=== PATIENT | female | born 1940 | race Caucasian/White ===

== ENCOUNTER 2016-03-27 15:14 | Outpatient (CLI) | payer MEDICARE, OTHER ==
[2016-01-25 09:32] VITALS: BP 143/56
--- NOTE | 2016-03-27 16:52 | Diagnostic Imaging Report ---
[facility] [address] [facility].[address] [address] Report Submission Date: Mar 27, 2016 4:47:24 PM ROOFING SUBCONTRACTOR Patient Study Name: PATRICK MARTIN Date: Mar 27, 2016 3:47:01 PM ROOFING SUBCONTRACTOR Modality Type: CR Gender: F Description: SPINE : 36 [facility] Physician: JESSIKA COOK Lumbar spine, 5 views. History: Lower back pain for several months. Findings: The vertebral height are normal. There is intervertebral disc space narrowing at several levels most significant at L5/S1. There is facet arthropathy in the lower lumbar spine. There is grade I anterolisthesis of L4 on L5. There is atherosclerosis of the aorta. Impression: 1. Mild multilevel spondylosis in the lower lumbar spine with associated mild grade I anterolisthesis of L4 and L5. 2. Aortic atherosclerosis. Electronically signed on Mar 27, 2016 4:47:24 PM ROOFING SUBCONTRACTOR by: Bernard HORAN
== END 2016-03-27 15:15 ==
LOC: RAD 15:14
PROVIDERS: ATTEND Family Medicine
DX: M54.5 Low back pain (principal)
CPT/HCPCS: 72110

== ENCOUNTER 2016-04-01 12:30 | Outpatient (CLI) | payer MEDICARE, OTHER ==
[2016-01-25 09:32] VITALS: BP 143/56
== END 2016-04-01 12:32 ==
LOC: CARD 12:30
PROVIDERS: ATTEND Internal Medicine Cardiovascular Disease
DX: R07.89 Other chest pain (principal)
CPT/HCPCS: G0463

== ENCOUNTER 2016-05-09 13:29 | Outpatient (CLI) | payer MEDICARE, OTHER ==
[2016-01-25 09:32] VITALS: BP 143/56
--- NOTE | 2016-05-10 01:25 | Diagnostic Imaging Report ---
LAUREN PERERA~ [facility] [address] [facility] [address] [place] [address]. [id number] ~ ~ ~ ~ Report Submission Date: May 09, 2016 4:22:40 PM CDT Patient ~ Study Name: PATRICK MARTIN ~ Date: May 09, 2016 1:46:59 PM CDT ~ Modality Type: CR Gender: F ~ Description: ABDOMEN : 38 ~ Institution: [facility] Physician: LAUREN PERERA ~ ~ ~ ~ AP view of the abdomen Clinical history: Left lower abdominal pain for 3 days No bowel obstruction. No significant fecal retention. No dilated small or large bowel loops. Impression: Normal single AP view of the pelvis ~ Electronically signed on May 09, 2016 4:22:40 PM CDT by: Sincere HORAN
== END 2016-05-09 13:30 ==
LOC: RAD 13:29
PROVIDERS: ATTEND Physician Assistant
DX: R10.32 Left lower quadrant pain (principal)
CPT/HCPCS: 74000

== ENCOUNTER 2016-07-08 10:50 | Outpatient (CLI) | payer MEDICARE, OTHER ==
[2016-01-25 09:32] VITALS: BP 143/56
--- NOTE | 2016-07-08 16:39 | Diagnostic Imaging Report ---
[facility] [address] [facility].[address] [address] Report Submission Date: July 08, 2016 4:27:04 PM CDT Patient Study Name: PATRICK MARTIN Date: July 08, 2016 10:55:44 AM CDT Modality Type: CR Gender: F Description: CHEST : 38 Institution: [facility] Physician: LAUREN PERERA Chest 2 views History: Chest wall pain and shortness of breath Findings: The lungs are hyperinflated. Mild left greater than right basilar atelectasis and/or infiltrate observed. Bilateral costophrenic sulcus may represent pleural scarring or small pleural effusions. Heart size is normal. Mild atherosclerotic calcification is observed. Impression: 1. Mild bibasilar atelectasis or infiltrate of uncertain chronicity. 2. Bibasilar pleural scarring versus small pleural effusions. 3. Chronic obstructive pulmonary disease. Electronically signed on July 08, 2016 4:27:04 PM CDT by: Familia HORAN
== END 2016-07-08 10:52 ==
LOC: RAD 10:50
PROVIDERS: ATTEND Physician Assistant
DX: R07.89 Other chest pain (principal)
CPT/HCPCS: 71020

== ENCOUNTER 2016-09-08 08:53 | Day surgery (SDC) | payer MEDICARE, OTHER ==
[2016-01-25 09:32] VITALS: BP 143/56
[~2016-09-08 08:53] MED LIST: LACTATED RINGERS 1,000 ML IV.SOLN IV ONE; LIDOCAINE HCL/PF 2% 100 MG/5 ML VIAL IJ ONE; PROPOFOL 200 MG/20 ML VIAL IV ONE; SALINE FLUSH 10 ML DISP.SYRIN IVF ONE
--- NOTE | 2016-09-09 10:06 | GI Report ---
REFERRING PHYSICIAN: Dr. Sincere Stanton SEASONING MIXER: aMtthew Ruelas MD PROCEDURE MEDICATION: Propofol as per anesthesia. INDICATIONS: This 76-year-old woman has had adenomatous polyps in the past last looked at 5 years ago. She does have a regular stool. She is on a number of medications for her breathing and blood pressure. She does have central obesity. Her Plavix has been held for 5 days. PROCEDURE PERFORMED: Colonoscopy with polypectomy. PROCEDURE: An Olympus video colonoscope was advanced to the rectum and slowly advanced to the cecum. The appendiceal orifice and ileocecal valve were normal. We advanced about 6 or 7 cm and the terminal ileum looked normal. On slow withdrawal, the main part of the cecum, ascending colon, and transverse colon with redundancy, no obvious intraluminal lesions noted. The descending colon, again, has redundancy. In the sigmoid, no obvious intraluminal lesions noted until to get 20 cm and there the patient has a 2 to 3 mm flat polyp that was cold biopsy removed. Retroflexion of the rectum was normal. Patient tolerated the procedure well. FINDINGS: Sigmoid polyp, cold biopsied removed, otherwise, unremarkable colonoscopy. RECOMMENDATIONS: 1. High-fiber diet. 2. Consider re-looking at her colon pending on what the pathology of the polyp is, if it is adenomatous, one would consider looking again in 5 years. If it is hyperplastic, patient could wait probably 10 years pending on what her health status is at that point. cc: Dr. Sincere HORAN
== END 2016-09-08 08:54 ==
LOC: OPSURG 08:53
PROVIDERS: ATTEND Internal Medicine Gastroenterology
DX: D12.5 Benign neoplasm of sigmoid colon (principal)
CPT/HCPCS: 88305; J2001; J2704; J7120; 45380; S1016

== ENCOUNTER 2016-09-16 08:25 | Emergency (ER) | payer MEDICARE, OTHER ==
--- NOTE | 2016-09-16 09:05 | ED Physician Documentation ---
Dyspnea - HISTORIAN Historian: patient - HPI Stated Complaint: pt thinks she has pneumonia Chief Complaint: Dyspnea Onset: days ago (3 days ago) Duration: continues in ED Initiating Event: denies: upper respiratory illness, out of meds Context: has insterstitial lung disease Severity: denies: moderate Exacerbated By: change in position Associated Symptoms: fever. denies: chills, sweating Further Comments: yes - ROS CONST: no problems - PAST HX Lung Disease: asthma, COPD, other (GERDs) PE Risk Factors: hypertension, other (s/p TIA) Surgeries/Procedures: appendectomy, cholecystectomy, other (T&A, toe fusion, D&C ) Immunizations: UTD Allergies/Adverse Reactions: Allergies Allergy/AdvReac Type Severity Reaction Status Date / Time cefadroxil hydrate Allergy Verified 09/16/16 08:56 [From Duricef] Cephalosporins Allergy Verified 09/16/16 08:56 clindamycin Allergy Verified 09/16/16 08:56 Quinolones Allergy Verified 09/16/16 08:56 Sulfa (Sulfonamide Allergy Verified 09/16/16 08:56 Antibiotics) [Sulfa(Sulfonamide Antibiotics)] levofloxacin [From Levaquin] AdvReac Nausea/Vomi Verified 09/16/16 08:56 ting Cefadroxil Hydrate Allergy Uncoded 09/16/16 08:56 clindamycin Allergy Uncoded 09/16/16 08:56 Sulfa(Sulfonamide Allergy Uncoded 09/16/16 08:56 Antibiotics) PORK AdvReac Intermediate Abdominal Uncoded 09/16/16 08:56 Pain Levofloxacin AdvReac Nausea/Vomi Uncoded 09/16/16 08:56 ting Home Medications: Ambulatory Orders Medication Instructions Recorded Acetaminophen [Tylenol] 650 mg PO Q4H PRN #100 tablet 04/28/14 Mag Hydrox/Al Hydrox/Simeth 30 ml PO Q6 PRN #50 udc 04/28/14 [Mylanta] Amoxicillin/Potassium Clav 1 each PO BID #20 tablet 09/16/16 [Augmentin 875-125 Tablet] Methylprednisolone [Medrol] 4 mg PO DIRECTED #21 tablet 09/16/16 - SOCIAL HX Smoking History: non-smoker Alcohol Use: none Drug Use: none - FAMILY HX Family History: other (CHF) - VITAL SIGNS Vital Signs: Vital Signs Temp Pulse Resp BP Pulse Ox 143/56 01/25/16 10:59 - REVIEWED ASSESSMENTS Nursing Assessment Reviewed: Yes Vitals Reviewed: Yes Dyspnea Physical Exam - EXAM General Appearance: alert, mild distress EENT: eye inspection normal, ENT inspection normal, pharynx normal, no signs of dehydration Neck: nml inspection. No: lymphadenopathy Respiratory: speaks full sentences, respiratory distress (mild), decreased air movement, wheezes, rales, rhonchi (course bilateral) CVS: reg. rate & rhythm, no gallop. No: no murmur (grade 2/6) Abdomen: non-tender, no organomegaly, no distention, no ascites Skin: color nml, no rash, cyanosis Extremities: non-tender, normal range of motion, no evidence of injury Neuro/Psych: oriented x3, CN's nml as tested Discharge Clincal Impression: Chronic obstructive lung disease, Bronchitis Prescriptions: Amoxicillin/Potassium Clav [Augmentin 875-125 Tablet] 1 each PO BID #20 tablet Methylprednisolone [Medrol] 4 mg PO DIRECTED #21 tablet Referrals: Sincere Stanton MD [Primary Care Provider] - 2 Days Additional Instructions: Drink a lot of fluids, take Augmentin and medrol as directed. If any further problems to return to the ED or be seen in clinic. Home Medications: Ambulatory Orders Acetaminophen [Tylenol] 650 mg PO Q4H PRN #100 tablet 04/28/14 Mag Hydrox/Al Hydrox/Simeth [Mylanta] 30 ml PO Q6 PRN #50 udc 04/28/14 Amoxicillin/Potassium Clav [Augmentin 875-125 Tablet] 1 each PO BID #20 tablet 09/16/16 Methylprednisolone [Medrol] 4 mg PO DIRECTED #21 tablet 09/16/16 Condition: Stable Disposition: 01 HOME, SELF-CARE Decision to Admit: NO Date of Decison to Admit: 09/16/16 Decision Time: 10:36
[2016-09-16 09:18] LABS: BASOPHILS % 0.7 (0.0-1.5); EOSINOPHILS % 7.2 % (0.0-6.8); MEAN CORPUSCULAR HEMOGLOBIN 30.8 pg (28.0-34.0); MEAN CORPUSCULAR VOLUME 97.5 fl (80.0-100.0); NEUTROPHILS # 6.8 # k/uL (1.4-7.7)
[2016-09-16] MEDS: methylPREDNISolone SOD SUCC 125 MG/2 ML VIAL IVP ONE (09:26)
[2016-09-16] MEDS: IPRATROPIUM/ALBUTEROL SULFATE 3 ML AMPUL.NEB NEB ONE (09:26)
[2016-09-16 09:32] LABS: eGFR (African) > 60; eGFR (Non-African) > 60
[2016-09-16 10:59] VITALS: BP 144/54
--- NOTE | 2016-09-16 14:27 | Diagnostic Imaging Report ---
JOEY ROSEN [facility] [address] [facility].[address] [address] Report Submission Date: Sep 16, 2016 10:16:15 AM CDT Patient Study Name: PATRICK MARTIN Date: Sep 16, 2016 9:35:56 AM CDT Modality Type: CR Gender: F Description: CHEST : 36 Institution: [facility] Physician: JOEY ROSEN Examination: PA and lateral chest. History: Cough Comparison exam: 08 Jul 2016 Findings: PA lateral chest demonstrate a normal cardiac silhouette. Vascular calcifications involving the aortic arch. Continued prominence of the right hilum. Increased parenchymal haziness of the right hilum. Continued blunting of the left costophrenic margin. Osseous structures are appropriate for age. Impression: Increased right perihilar haziness. Follow as warranted to document resolution. Continued right hilar prominence and left base effusion /thickening. If not performed, consider CT chest the with contrast to further evaluate. Electronically signed on Sep 16, 2016 10:16:15 AM CDT by: Bautista HORAN
== END 2016-09-16 10:56 | disposition home or self-care (01) ==
LOC: ED 08:25
DX: J44.0 Chronic obstructive pulmonary disease with (acute) lower respiratory infection (principal); J20.9 Acute bronchitis, unspecified
CPT/HCPCS: 71020; 80053; 85025; 87040; J2930; 96372; 99283; S1016

== ENCOUNTER 2016-10-03 08:21 | Inpatient (IN) | payer MEDICARE, OTHER ==
[2016-10-03] MEDS ORDERED: 0.9 % SODIUM CHLORIDE 500 ML IV ONE (08:57)
[2016-10-03 09:38] LABS: BASOPHILS % 0.5 (0.0-1.5); EOSINOPHILS % 1.6 % (0.0-6.8); MEAN CORPUSCULAR HEMOGLOBIN 30.9 pg (28.0-34.0); MEAN CORPUSCULAR VOLUME 97.2 fl (80.0-100.0); NEUTROPHILS # 10.5 # k/uL (1.4-7.7)
--- NOTE | 2016-10-03 09:54 | ED Physician Documentation ---
Upper Respiratory Symptoms - HISTORIAN Historian: patient - HPI Stated Complaint: pneumonia Chief Complaint: Cough/ Upper Respiratory Additional Information: Seen on 09/16/16 for cough and dyspnea, treated with 10 days of Augmenting, finished a few days ago, now coughing up yellow sputum again. Onset: days ago (6) Duration: sudden-Onset Context: same sx (as 2 weeks ago). denies: recent foreign travel, insect bite(s ), tick(s), recent chemotherapy, multiple patients Severity: moderate Associated Symptoms: productive cough, shortness of breath. denies: fever, chills, sweating, earache, runny nose, sinus pain, sinus drainage, sore throat, hoarseness, allergy, hay fever, chest pain, bloody cough, hurts to breathe, headache Worsened by Deep Breath: No Further Comments: no - ROS CONST/EYES: denies: weakness, eye redness, eye itching CVS/RESP: shortness of breath, other (yellow sputum) LYMPH: denies: leg swelling, rash, swollen glands, ankle swelling GI/: none NEURO/PSYCH: denies: fainting, dizziness, confusion, anxiety, depression MS/SKIN: denies: joint pain, muscle aches, rash - PAST HX Lung Disease: COPD, other (gerd) PE Risk Factors: hypertension, other (tia) Surgeries/Procedures: appendectomy, cholecystectomy, other (t and a, toe fusion , d and c) Immunizations: referred to PCP Allergies/Adverse Reactions: Allergies Allergy/AdvReac Type Severity Reaction Status Date / Time cefadroxil hydrate Allergy Verified 10/03/16 08:28 [From Duricef] Cephalosporins Allergy Verified 10/03/16 08:28 clindamycin Allergy Verified 10/03/16 08:28 Quinolones Allergy Verified 10/03/16 08:28 Sulfa (Sulfonamide Allergy Verified 10/03/16 08:28 Antibiotics) [Sulfa(Sulfonamide Antibiotics)] levofloxacin [From Levaquin] AdvReac Nausea/Vomi Verified 10/03/16 08:28 ting Cefadroxil Hydrate Allergy Uncoded 10/03/16 08:28 clindamycin Allergy Uncoded 10/03/16 08:28 Sulfa(Sulfonamide Allergy Uncoded 10/03/16 08:28 Antibiotics) PORK AdvReac Intermediate Abdominal Uncoded 10/03/16 08:28 Pain Levofloxacin AdvReac Nausea/Vomi Uncoded 10/03/16 08:28 ting Home Medications: Ambulatory Orders Medication Instructions Recorded Acetaminophen [Tylenol] 650 mg PO Q4H PRN #100 tablet 04/28/14 Mag Hydrox/Al Hydrox/Simeth 30 ml PO Q6 PRN #50 udc 04/28/14 [Mylanta] Amoxicillin/Potassium Clav 1 each PO BID #20 tablet 09/16/16 [Augmentin 875-125 Tablet] Methylprednisolone [Medrol] 4 mg PO DIRECTED #21 tablet 09/16/16 - SOCIAL HX Smoking History: non-smoker Alcohol Use: none Drug Use: none - FAMILY HX Family History: other (chf) - VITAL SIGNS Vital Signs: Vital Signs Temp Pulse Resp BP Pulse Ox 98.8 F 99 H 20 97/54 94 10/03/16 08:23 10/03/16 08:23 10/03/16 08:23 10/03/16 08:23 10/03/16 08:24 - REVIEWED ASSESSMENTS Nursing Assessment Reviewed: Yes Vitals Reviewed: Yes Progress - Results/Orders Results/Orders: cbc, cmp, ua, pt/ptt/inr, bnp, cxr, blood cultures ordered - Progress Progress: pt. stable in er, given merepenem 1 gram ivpb after blood cultures taken Critical Care Note - Critical Care Note Total Time (mins): 0 ED Results Lab/Radiology - Lab Results Lab Results: Lab Results 10/03/16 10/03/16 10/03/16 11:04 09:30 09:30 WBC RBC Hgb Hct MCV MCH MCHC RDW Plt Count Neut % (Auto) Lymph % (Auto) [place] % (Auto) Eos % (Auto) Baso % (Auto) Neut # (Auto) Lymph # (Auto) [place] # (Auto) Eos # (Auto) Baso # (Auto) Reactive Lymphs % Reactive Lymphs # PT 10.0 Seconds Seconds (9.4-11.6) INR 0.95 (0.9-1.2) Sodium Potassium Chloride Carbon Dioxide BUN Creatinine Estimated Creat Clear Est GFR ( Amer) Est GFR (Non-Af Amer) Glucose Calcium Total Bilirubin AST ALT Alkaline Phosphatase NT-Pro-B Natriuret Pep 555.8 pg/mL H pg/mL (15.0-450.0) Total Protein Albumin Urine Color Yellow (YELLOW) Urine Appearance Clear (CLEAR) Urine pH 7.0 (5.0 - 8.0) Ur Specific [place] 1.015 (1.010-1.030) Urine Protein 1+ mg/dL H mg/dL (NEGATIVE) Urine Ketones 3+ mg/dL H mg/dL (NEGATIVE) Urine Occult Blood Negative (NEGATIVE) Urine Nitrite Negative (NEGATIVE) Urine Bilirubin Negative (NEGATIVE) Urine Urobilinogen 0.2 Eu Eu (0.2-1.0) Ur Leukocyte Esterase Trace H (NEGATIVE) Urine Glucose Negative mg/dL mg/dL (NEGATIVE) 10/03/16 10/03/16 09:30 09:30 WBC 12.70 K/ul H K/ul (4.00-12.00) RBC 3.19 M/ul L M/ul (3.90-5.20) Hgb 9.9 g/dL L g/dL (12.0-16.0) Hct 31.0 % L % (34.5-46.5) MCV 97.2 fl fl (80.0-100.0) MCH 30.9 pg pg (28.0-34.0) MCHC 31.8 g/dL g/dL (30.0-36.0) RDW 12.6 % % (11.3-14.3) Plt Count 386 K/mm3 K/mm3 (130-400) Neut % (Auto) 82.7 % H % (39.0-79.0) Lymph % (Auto) 11.4 % L % (16.0-50.0) [place] % (Auto) 3.0 % % (0.0-11.0) Eos % (Auto) 1.6 % % (0.0-6.8) Baso % (Auto) 0.5 (0.0-1.5) Neut # (Auto) 10.5 # k/uL H # k/uL (1.4-7.7) Lymph # (Auto) 1.4 # k/uL # k/uL (0.6-4.0) [place] # (Auto) 0.4 # k/uL # k/uL (0.0-0.9) Eos # (Auto) 0.2 # k/uL # k/uL (0.0-0.6) Baso # (Auto) 0.1 # k/uL # k/uL (0.0-0.5) Reactive Lymphs % 0.8 % % (0.0-5.0) Reactive Lymphs # 0.1 # k/uL # k/uL (0.0-0.8) PT INR Sodium 140 mmol/L mmol/L (136-145) Potassium 3.9 mmol/L mmol/L (3.5-5.0) Chloride 105 mmol/L mmol/L (98-110) Carbon Dioxide 26 mmol/L mmol/L (20-32) BUN 8 mg/dL L mg/dL (10-26) Creatinine 0.6 mg/dL mg/dL (0.4-1.5) Estimated Creat Clear 118 Est GFR ( Amer) > 60 (60 - ) Est GFR (Non-Af Amer) > 60 (60 - ) Glucose 101 mg/dL H mg/dL (70-99) Calcium 9.6 mg/dL mg/dL (8.5-10.5) Total Bilirubin 0.5 mg/dL mg/dL (0.2-1.2) AST 12 U/L U/L (0-41) ALT 12 U/L U/L (0-45) Alkaline Phosphatase 70 U/L U/L (46-116) NT-Pro-B Natriuret Pep Total Protein 6.9 g/dL g/dL (6.0-8.5) Albumin 4.3 g/dL g/dL (3.0-5.5) Urine Color Urine Appearance Urine pH Ur Specific [place] Urine Protein Urine Ketones Urine Occult Blood Urine Nitrite Urine Bilirubin Urine Urobilinogen Ur Leukocyte Esterase Urine Glucose - Radiology Radiology Impressions: cxr reveals left sided infiltrate - Orders Orders: ED Orders Category Date Time Status Place IV Lock 1T Care 10/03/16 08:57 Active CHEST 1 VIEW [RAD] Routine Exams 10/03/16 Taken BLOOD CULTURE Routine Lab 10/03/16 09:30 Received BNP [NT-proBNP] Routine Lab 10/03/16 09:30 Completed CBC/PLATELET/DIFF Routine Lab 10/03/16 09:30 Completed CMP Routine Lab 10/03/16 09:30 Completed PT-INR Routine Lab 10/03/16 09:30 Completed UA MACRO DIP ONLY Routine Lab 10/03/16 11:04 Completed URINE CULTURE Routine Lab 10/03/16 11:48 Received 0.9 % Sodium Chloride [Normal Saline] 500 ml Med 10/03/16 08:57 Discontinued IV NOW 0.9 % Sodium Chloride [Sodium Chloride] 50 ml Med 10/03/16 11:19 Discontinued IV .STK-MED Meropenem Med 10/03/16 11:13 Discontinued 1,000 mg IV .STK-MED ONE Meropenem 1,000 mg Med 10/03/16 11:02 Ordered 0.9 % Sodium Chloride [Sodium Chloride] 50 ml IV 1T Transfer Routine Transfer 10/03/16 Ordered Upper Respiratory Symptoms - EXAM General Appearance: alert, moderate distress EENT: eyes nml inspection, nml ENT inspection, lids & conjunct. nml, PERRL, ear nml Neck: normal inspection, thyroid normal, supple Respiratory: no resp. distress, speaks full sentences, rales (left posterior base). No: wheezes Abdomen: non-tender, no organomegaly, nml bowel sounds, no distention CVS: reg rate & rhythm, heart sounds normal, equal pulses, no murmur Skin: color nml, no rash, warm,dry Extremities: non-tender, normal range of motion, no evidence of injury, no edema Neuro/Psych: oriented x3, neuro intact, mood/affect nml Discharge Clincal Impression: Pneumonia Qualifiers: Pneumonia type: due to unspecified organism Laterality: bilateral Lung location : lower lobe of lung Qualified Code(s): J18.9 - Pneumonia, unspecified organism Home Medications: Ambulatory Orders Acetaminophen [Tylenol] 650 mg PO Q4H PRN #100 tablet 04/28/14 Mag Hydrox/Al Hydrox/Simeth [Mylanta] 30 ml PO Q6 PRN #50 udc 04/28/14 Amoxicillin/Potassium Clav [Augmentin 875-125 Tablet] 1 each PO BID #20 tablet 09/16/16 Methylprednisolone [Medrol] 4 mg PO DIRECTED #21 tablet 09/16/16 Comments: Case discussed with Dr. Romy giang admission Condition: Stable Disposition: ADMITTED INPATIENT Decision to Admit: [id number] Decision Time: 11:30
[2016-10-03 09:58] LABS: eGFR (African) > 60; eGFR (Non-African) > 60
[2016-10-03] MEDS ORDERED: MEROPENEM 1,000 MG in 0.9 % SODIUM CHLORIDE 50 ML IV ONE (11:02)
[2016-10-03] MEDS ORDERED: MEROPENEM 1,000 MG IV.SOLN. IV ONE (11:13)
[2016-10-03] MEDS ORDERED: 0.9 % SODIUM CHLORIDE 50 ML IV ONE (11:19)
[2016-10-03 11:47] LABS: APPEARANCE,URINE CLEAR (CLEAR); COLOR,URINE YELLOW (YELLOW); OCCULT BLOOD,URINE NEGATIVE (NEGATIVE)
[2016-10-03 11:48] LABS: UROBILINOGEN URINE 0.2 Eu (0.2-1.0)
--- NOTE | 2016-10-03 12:12 | History and Physical Report ---
History of Present Illnes - History of Present Illness Reason for Visit: dyspnea History of Present Illness: Patient is a 76-year-old white female who was recently treated for bronchitis last possible early pneumonia. Patient states that she took the antibiotic as prescribed in symptoms did improve. Within approximately five days after patient the antibiotic patient started having some increasing dyspnea shortness of breath. Patient subsequently came to the ED for further evaluation and treatment. Patient was noted to have a left lower lobe infiltrate which was new since a previous x-ray approximately one week ago. Patient was felt to be developing a pneumonia was subsequently admitted to the hospital for further care and evaluation. Patient does have a history of bronchiectasis and COPD. - Past Medical History Cardiac: HTN Pulmonary: Asthma, COPD, Other (chronic bronchiectasis) SENIOR ACCOUNTANT CPA: TIA Gastrointestinal: GERD Heme/Onc: Other (thrombocyotosis, anemia) - Past Surgical History Past Surgical History: Appendectomy, Cholecystectomy, Tonsillectomy, Other (D&C , toe fusion) - Past Family History Mother Family History: (89yo, CHF) Father Family History: (80 yo ,unknown cause) Brother 1 Family History: Other (COPD) - Past Social History Smoke: No Alcohol: None Drugs: None Lives: With Family Domestic Violence: Negative - Health Maintenance Health Maintenance: Cholesterol, Influenza Vaccine, Pneumococcal Vaccine Influenza Vaccine: No Pneumonia Vaccine: Yes Resuscitation Status: Resusciation Status Resuscitation Status Full Code - Unable to Obtain History Unable to Obtain: No Review of Systems - Review of Systems Constitutional: Fever, Weakness. negative: Chills, Sweats Eyes: negative: pain, vision change, conjunctivae inflammation ENT: negative: Ear Pain, Ear Discharge, Nose Pain, Nose Discharge Respiratory: negative: Cough, Dry, Shortness of Breath, Hemoptysis Cardiovascular: negative: Chest Pain, Palpitations Gastrointestinal: Diarrhea. negative: Nausea, Vomiting, Abdominal Pain, Constipation, Melena Genitourinary: Other (some urgency). negative: Dysuria, Frequency, Incontinence Musculoskeletal: Neck Pain, Back Pain Skin: negative: Rash, Lesions Neurological: negative: Weakness, Numbness, Incoordination, Confusion, Seizures - Medications/Allergies Allergies/Adverse Reactions: Allergies Allergy/AdvReac Type Severity Reaction Status Date / Time cefadroxil hydrate Allergy Verified 10/11/16 08:35 [From [facility]] Cephalosporins Allergy Verified 10/11/16 08:35 clindamycin Allergy Verified 10/11/16 08:35 Quinolones Allergy Verified 10/11/16 08:35 Sulfa (Sulfonamide Allergy Verified 10/11/16 08:35 Antibiotics) [Sulfa(Sulfonamide Antibiotics)] levofloxacin [From Levaquin] AdvReac Nausea/Vomi Verified 10/11/16 08:35 ting Cefadroxil Hydrate Allergy Uncoded 10/11/16 08:35 clindamycin Allergy Uncoded 10/11/16 08:35 Sulfa(Sulfonamide Allergy Uncoded 10/11/16 08:35 Antibiotics) PORK AdvReac Intermediate Abdominal Uncoded 10/11/16 08:35 Pain Levofloxacin AdvReac Nausea/Vomi Uncoded 10/11/16 08:35 ting Current Inpatient Medications: Current Inpatient Medications Enoxaparin Sodium (Lovenox) 30 mg SQ QD [facility] Stop: 10/16/16 13:01 Meropenem 1,000 mg/ Sodium (Chloride) 50 mls @ 100 mls/hr IV 1T ONE Stop: 10/03/16 11:31 Sodium Chloride (Normal Saline) 1,000 mls @ 100 mls/hr IV Q10H [facility] Meropenem 1,000 mg/ Sodium (Chloride) 50 mls @ 100 mls/hr IV Q8 [facility] Azithromycin 500 mg/ Sodium (Chloride) 250 mls @ 125 mls/hr IV Q24H [facility] Stop: 10/08/16 12:59 Methylprednisolone Sodium Succinate (Solu-Medrol) 80 mg IVP Q12 [facility] Exam - Exam General: Alert, Oriented to Person, Oriented to Place, Oriented to Time, Cooperative, Mild distress HEENT: Atraumatic, PERRLA, EOMI, Mouth Mucous membr. moist/[place], Nose Mucous membr. moist/[place] Neck: Normal Range of Motion Carotids: WNL Thyroid: WNL Lungs: Speaks full Sentences, Respiratory Distress (mils), Wheezes, Rales, Rhonchi (LLL) Cardiovascular: Regular rate, Normal S1, Normal S2, No murmurs Abdomen: Normal bowel sounds, Soft, No tenderness, No hepatospenomegaly, No masses Integumentary: Normal, [place], Warm, Dry Extremities: No clubbing, No cyanosis, No edema, Normal pulses Neurological: Normal gait, Normal speech, Strength Equal Bilat, Normal tone, Sensation intact, Cranial nerves 3-12 NL, Reflexes 2+ Psych/Mental Status: Mental status NL, Mood NL, Appropriate Affect, Intact Judgment Assessment/Plan - Assessment/Plan (1) Pneumonia Status: Acute Qualifiers: Pneumonia type: due to unspecified organism Laterality: bilateral Lung location: lower lobe of lung Qualified Code(s): J18.9 - Pneumonia, unspecified organism (2) Bronchiectasis Status: Chronic Qualifiers: Bronchiectasis type: with acute lower respiratory infection Qualified Code( s): J47.0 - Bronchiectasis with acute lower respiratory infection (3) COPD exacerbation Status: Chronic VTE Assessment - RISK FACTOR SCORE VTE RISK FACTOR SCORES: AGE OVER 60 YEARS, ACUTE INFECTION OTHER THEN SEPSIS - RISK VTE MODERATE RISK: SCORE OF 2 (RISK PROXIMAL DVT 2-4%) PROPHYAXIS NEEDED
--- NOTE | 2016-10-03 14:45 | Diagnostic Imaging Report ---
[facility] [address] [facility].[address] [address] Report Submission Date: Oct 03, 2016 9:22:54 AM CDT Patient Study Name: PATRICK MARTIN Date: Oct 03, 2016 9:00:12 AM CDT Modality Type: CR Gender: F Description: CHEST : 36 Institution: [facility] Physician DAHLIA VICENTE - ER Chest -one view CLINICAL HISTORY: Cough and congestion. FINDINGS: Examination of the chest single portable AP view 10/03/2016 0900 hr with comparison to examination of 09/16/2016 demonstrates left basilar infiltrate or atelectasis with left effusion blunting the costophrenic angle. Cardiovascular and mediastinal silhouettes are stable. The aorta is atherosclerotic. IMPRESSION: Left basilar infiltrate or atelectasis with left effusion blunting the costophrenic angle. Decreased right perihilar infiltrate. Electronically signed on Oct 03, 2016 9:22:54 AM CDT by: Mika HORAN
[2016-10-03] MEDS: IPRATROPIUM/ALBUTEROL SULFATE 3 ML AMPUL.NEB NEB SCH ×3 (14:46→21:15)
[2016-10-03] MEDS: 0.9 % SODIUM CHLORIDE 1,000 ML IV SCH (15:47)
[2016-10-03] MEDS: MEROPENEM 1,000 MG in 0.9 % SODIUM CHLORIDE 50 ML IV SCH ×2 (15:48→21:09)
[2016-10-03] MEDS: AZITHROMYCIN 500 MG in 0.9 % SODIUM CHLORIDE 250 ML IV SCH (15:48)
[2016-10-03] MEDS: ENOXAPARIN SODIUM 30 MG/0.3 ML DISP.SYRIN SQ SCH (15:49)
[2016-10-03 16:10] VITALS: BMI 75.4
[2016-10-03] MEDS ORDERED: SALINE FLUSH 10 ML DISP.SYRIN IVF ONE (21:00)
[2016-10-03] MEDS: methylPREDNISolone SOD SUCC 40 MG/ML VIAL IVP SCH (21:04)
[2016-10-03] MEDS ORDERED: ONDANSETRON HCL 4 MG TAB.RAPDIS PO PRN (22:24)
[2016-10-03] MEDS ORDERED: ONDANSETRON HCL 4 MG TAB.RAPDIS ONE (22:26)
[2016-10-04] MEDS: IPRATROPIUM/ALBUTEROL SULFATE 3 ML AMPUL.NEB NEB SCH ×6 (00:30→21:23)
[2016-10-04] MEDS: 0.9 % SODIUM CHLORIDE 1,000 ML IV SCH ×2 (02:30→14:53)
[2016-10-04] MEDS: MEROPENEM 1,000 MG in 0.9 % SODIUM CHLORIDE 50 ML IV SCH ×3 (05:16→20:39)
[2016-10-04 07:14] LABS: MEAN CORPUSCULAR HEMOGLOBIN 30.9 pg (28.0-34.0); MEAN CORPUSCULAR VOLUME 99.6 fl (80.0-100.0)
[2016-10-04 07:16] LABS: eGFR (African) > 60; eGFR (Non-African) > 60
[2016-10-04 08:13] LABS: SEGMENTED NEUTROPHILS % 98 % (39-79); TOXIC GRANULATION PRESENT
[2016-10-04] MEDS ORDERED: ACETAMINOPHEN 500 MG TABLET PO PRN (08:24)
[2016-10-04] MEDS ORDERED: FLUTICASONE/SALMETEROL 500-50 INHALER IH ONE (08:58)
[2016-10-04] MEDS: FLUTICASONE/SALMETEROL 500-50 INHALER IH SCH ×2 (09:12→20:39)
[2016-10-04] MEDS: methylPREDNISolone SOD SUCC 40 MG/ML VIAL IVP SCH ×2 (09:12→21:45)
[2016-10-04] MEDS ORDERED: ACETAMINOPHEN 325 MG TABLET PO PRN (09:19)
[2016-10-04] MEDS ORDERED: MAG HYDROX/AL HYDROX/SIMETH 30 ML UDC PO PRN (09:19)
[2016-10-04] MEDS ORDERED: FLUTICASONE/SALMETEROL 500-50 INHALER IH SCH (09:19)
[2016-10-04] MEDS ORDERED: IPRATROPIUM/ALBUTEROL SULFATE 3 ML AMPUL.NEB NEB PRN (09:19)
[2016-10-04] MEDS ORDERED: MEROPENEM 1,000 MG in 0.9 % SODIUM CHLORIDE 50 ML IV SCH (09:19)
[2016-10-04] MEDS ORDERED: FLUTICASONE PROPIONATE 120 SPRAY/16 GR BOTTLE NS ONE (09:28)
[2016-10-04] MEDS ORDERED: amLODIPine BESYLATE 5 MG TABLET ONE (09:29)
[2016-10-04] MEDS ORDERED: PANTOPRAZOLE SODIUM 40 MG TABLET ONE ×2 (09:31→09:35)
[2016-10-04] MEDS ORDERED: FUROSEMIDE 40 MG TABLET PO ONE (09:31)
[2016-10-04] MEDS ORDERED: MONTELUKAST SODIUM 10 MG TABLET PO ONE (09:32)
[2016-10-04] MEDS ORDERED: LISINOPRIL 5 MG TABLET ONE (09:32)
[2016-10-04] MEDS ORDERED: CLOPIDOGREL BISULFATE 75 MG TABLET ONE (09:32)
[2016-10-04] MEDS: FLUTICASONE PROPIONATE 120 SPRAY/16 GR BOTTLE NS SCH (11:12)
[2016-10-04] MEDS: FUROSEMIDE 20 MG TABLET PO SCH (11:14)
[2016-10-04] MEDS: PANTOPRAZOLE SODIUM 40 MG TABLET PO SCH (11:15)
[2016-10-04] MEDS: CLOPIDOGREL BISULFATE 75 MG TABLET PO SCH (11:16)
[2016-10-04] MEDS: amLODIPine BESYLATE 5 MG TABLET PO SCH (11:16)
[2016-10-04] MEDS: LISINOPRIL 5 MG TABLET PO SCH (11:17)
[2016-10-04] MEDS: MONTELUKAST SODIUM 10 MG TABLET PO SCH (11:18)
[2016-10-04 11:57] LABS: MEAN CORPUSCULAR HEMOGLOBIN 30.5 pg (28.0-34.0); MEAN CORPUSCULAR VOLUME 97.1 fl (80.0-100.0)
[2016-10-04 12:11] LABS: eGFR (African) > 60; eGFR (Non-African) > 60
[2016-10-04] MEDS: Prednisolone Sod Phosphat 15 MG/5 ML 15ML BOTTLE PO SCH (12:35)
[2016-10-04] MEDS: AZITHROMYCIN 500 MG in 0.9 % SODIUM CHLORIDE 250 ML IV SCH (12:55)
[2016-10-04] MEDS: ENOXAPARIN SODIUM 30 MG/0.3 ML DISP.SYRIN SQ SCH (18:10)
--- NOTE | 2016-10-04 18:28 | Diagnostic Imaging Report ---
DAHLIA VICENTE~ [facility] [address] [address] ~ ~ ~ ~ Report Submission Date: Oct 04, 2016 10:06:05 AM CDT Patient ~ Study Name: PATRICK MARTIN ~ Date: Oct 04, 2016 9:33:00 AM CDT ~ Modality Type: CR Gender: F ~ Description: CHEST : 38 ~ Institution: [facility] Physician: DAHLIA VICENTE ~ ~ ~ ~ Chest 2 views History: Follow up pneumonia Findings: Bilateral lower lobe, right middle lobe, and lingular infiltrates or atelectasis are observed. A small left pleural effusion is present. The lungs are hyperinflated. Cardiomegaly, pulmonary vascular congestion, and central pulmonary artery enlargement are observed. There has been no change since yesterday. Impression: 1. Chronic obstructive pulmonary disease and probable pulmonary hypertension. 2. Bibasilar infiltrates or edema and small left pleural effusion without change. ~ Electronically signed on Oct 04, 2016 10:06:05 AM CDT by: Familia HORAN
[2016-10-04] MEDS ORDERED: SALINE FLUSH 10 ML DISP.SYRIN IVF ONE (22:05)
[2016-10-05] MEDS ORDERED: 0.9 % SODIUM CHLORIDE 1,000 ML IV ONE (00:28)
[2016-10-05] MEDS: IPRATROPIUM/ALBUTEROL SULFATE 3 ML AMPUL.NEB NEB SCH ×4 (00:37→15:04)
[2016-10-05] MEDS ORDERED: ACETAMINOPHEN 325 MG TABLET ONE (01:00)
[2016-10-05] MEDS ORDERED: FUROSEMIDE 40 MG TABLET PO ONE (03:26)
[2016-10-05] MEDS ORDERED: CLOPIDOGREL BISULFATE 75 MG TABLET ONE (03:27)
[2016-10-05] MEDS ORDERED: amLODIPine BESYLATE 5 MG TABLET ONE ×2 (03:27→08:56)
[2016-10-05] MEDS ORDERED: LISINOPRIL 5 MG TABLET ONE ×2 (03:27→08:56)
[2016-10-05] MEDS ORDERED: MONTELUKAST SODIUM 10 MG TABLET PO ONE (03:27)
[2016-10-05] MEDS: MEROPENEM 1,000 MG in 0.9 % SODIUM CHLORIDE 50 ML IV SCH ×2 (05:52→15:05)
[2016-10-05] MEDS: 0.9 % SODIUM CHLORIDE 1,000 ML IV SCH ×2 (05:53→06:26)
[2016-10-05] MEDS ORDERED: PANTOPRAZOLE SODIUM 40 MG TABLET ONE (05:54)
[2016-10-05] MEDS: PANTOPRAZOLE SODIUM 40 MG TABLET PO SCH (05:55)
[2016-10-05] MEDS: FLUTICASONE/SALMETEROL 500-50 INHALER IH SCH (08:50)
[2016-10-05] MEDS: FLUTICASONE PROPIONATE 120 SPRAY/16 GR BOTTLE NS SCH (08:50)
[2016-10-05] MEDS: FUROSEMIDE 20 MG TABLET PO SCH (08:51)
[2016-10-05] MEDS: CLOPIDOGREL BISULFATE 75 MG TABLET PO SCH (08:52)
[2016-10-05] MEDS: MONTELUKAST SODIUM 10 MG TABLET PO SCH (08:53)
[2016-10-05] MEDS: amLODIPine BESYLATE 5 MG TABLET PO SCH (08:57)
[2016-10-05] MEDS: LISINOPRIL 5 MG TABLET PO SCH (08:57)
[2016-10-05] MEDS: Prednisolone Sod Phosphat 15 MG/5 ML 15ML BOTTLE PO SCH (09:00)
[2016-10-05] MEDS: methylPREDNISolone SOD SUCC 40 MG/ML VIAL IVP SCH (10:31)
[2016-10-05 10:43] VITALS: BP 123/65
--- NOTE | 2016-10-05 12:19 | Inpatient Progress Note ---
Subjective - Required Recertification Statement I anticipate X number of days because-include discharge plan: 1 day - Review of Systems General: Denies: Chills Pulmonary: Dyspnea, Cough Cardiovascular: Chest Pain (mild right) Gastrointestinal: Denies: Nausea, Vomiting, Abdominal Pain Genitourinary: Denies: Dysuria, Frequency Objective - Exam Vitals and I&O: Vital Signs Temp 97.8 F 10/05/16 10:00 Pulse 107 H 10/05/16 10:00 Resp 20 10/05/16 10:00 BP 123/65 10/05/16 10:00 Pulse Ox 96 10/05/16 10:00 Intake & Output 10/04/16 10/05/16 10/05/16 23:59 11:59 23:59 Intake Total 855 1086 Output Total 800 Balance 55 1086 Weight 86.636 kg Intake: IV 726 Left Wrist 600 Right arm 126 Oral 855 360 Output: Urine 800 Other: Voiding Method Toilet Toilet # Voids 5 General: Alert, Oriented to Person, Oriented to Place, Oriented to Time, Cooperative, No acute distress Neck: Supple Lungs: Normal air movement, Speaks full Sentences, Wheezes (mild bialt), Rhonchi (few scattered) Cardiovascular: Normal S1, Normal S2, No murmurs, Tachycardia (mild in the low 100) Abdomen: Normal bowel sounds, Soft, No tenderness Extremities: No clubbing, No cyanosis, No edema Skin: Normal, [employer], Warm, Dry Neurological: Normal gait, Normal speech, Strength Equal Bilat, Normal tone, Sensation intact Psych/Mental Status: Mental status NL, Mood NL, Intact Judgment - Results Results: Laboratory Results WBC 10.00 K/ul (4.00-12.00) 10/04/16 09:19 RBC 3.33 M/ul (3.90-5.20) L 10/04/16 09:19 Hgb 10.2 g/dL (12.0-16.0) L 10/04/16 09:19 Hct 32.3 % (34.5-46.5) L 10/04/16 09:19 MCV 97.1 fl (80.0-100.0) 10/04/16 09:19 MCH 30.5 pg (28.0-34.0) 10/04/16 09:19 MCHC 31.4 g/dL (30.0-36.0) 10/04/16 09:19 RDW 12.3 % (11.3-14.3) 10/04/16 09:19 Plt Count 406 K/mm3 (130-400) H 10/04/16 09:19 Neut % (Auto) 82.7 % (39.0-79.0) H 10/03/16 09:30 Lymph % (Auto) 11.4 % (16.0-50.0) L 10/03/16 09:30 [place] % (Auto) 3.0 % (0.0-11.0) 10/03/16 09:30 Eos % (Auto) 1.6 % (0.0-6.8) 10/03/16 09:30 Baso % (Auto) 0.5 (0.0-1.5) 10/03/16 09:30 Neut # (Auto) 10.5 # k/uL (1.4-7.7) H 10/03/16 09:30 Lymph # (Auto) 1.4 # k/uL (0.6-4.0) 10/03/16 09:30 [place] # (Auto) 0.4 # k/uL (0.0-0.9) 10/03/16 09:30 Eos # (Auto) 0.2 # k/uL (0.0-0.6) 10/03/16 09:30 Baso # (Auto) 0.1 # k/uL (0.0-0.5) 10/03/16 09:30 Seg Neutrophils % 98 % (39-79) H 10/04/16 06:50 Lymphocytes % 2 % (16-50) L 10/04/16 06:50 Reactive Lymphs % 0.8 % (0.0-5.0) 10/03/16 09:30 Reactive Lymphs # 0.1 # k/uL (0.0-0.8) 10/03/16 09:30 Toxic Granulation Present 10/04/16 06:50 Plt Morphology Comment Normal (NORMAL) 10/04/16 06:50 Macrocytosis 1+ (NEGATIVE) H 10/04/16 06:50 RBC Morph Comment Abnormal (NORMAL) H 10/04/16 06:50 PT 10.0 Seconds (9.4-11.6) 10/03/16 09:30 INR 0.95 (0.9-1.2) 10/03/16 09:30 Sodium 137 mmol/L (136-145) 10/04/16 09:19 Potassium 3.7 mmol/L (3.5-5.0) 10/04/16 09:19 Chloride 105 mmol/L (98-110) 10/04/16 09:19 Carbon Dioxide 27 mmol/L (20-32) 10/04/16 09:19 BUN 10 mg/dL (10-26) 10/04/16 09:19 Creatinine 0.5 mg/dL (0.4-1.5) 10/04/16 09:19 Estimated Creat Clear 322 10/04/16 09:19 Est GFR ( Amer) > 60 (60-) 10/04/16 09:19 Est GFR (Non-Af Amer) > 60 (60-) 10/04/16 09:19 Glucose 238 mg/dL (70-99) H 10/04/16 09:19 Calcium 10.3 mg/dL (8.5-10.5) 10/04/16 09:19 Total Bilirubin 0.3 mg/dL (0.2-1.2) 10/04/16 09:19 AST 15 U/L (0-41) 10/04/16 09:19 ALT 13 U/L (0-45) 10/04/16 09:19 Alkaline Phosphatase 73 U/L (46-116) 10/04/16 09:19 NT-Pro-B Natriuret Pep 555.8 pg/mL (15.0-450.0) H 10/03/16 09:30 Total Protein 7.3 g/dL (6.0-8.5) 10/04/16 09:19 Albumin 4.6 g/dL (3.0-5.5) 10/04/16 09:19 Urine Color Yellow (YELLOW) 10/03/16 11:04 Urine Appearance Clear (CLEAR) 10/03/16 11:04 Urine pH 7.0 (5.0 - 8.0) 10/03/16 11:04 Ur Specific [place] 1.015 (1.010-1.030) 10/03/16 11:04 Urine Protein 1+ mg/dL (NEGATIVE) H 10/03/16 11:04 Urine Ketones 3+ mg/dL (NEGATIVE) H 10/03/16 11:04 Urine Occult Blood Negative (NEGATIVE) 10/03/16 11:04 Urine Nitrite Negative (NEGATIVE) 10/03/16 11:04 Urine Bilirubin Negative (NEGATIVE) 10/03/16 11:04 Urine Urobilinogen 0.2 Eu (0.2-1.0) 10/03/16 11:04 Ur Leukocyte Esterase Trace (NEGATIVE) H 10/03/16 11:04 Urine Glucose Negative mg/dL (NEGATIVE) 10/03/16 11:04 Assessment/Plan - Assessment/Plan (1) Pneumonia Status: Acute Assessment: continue with resent care (2) Hyperglycemia Status: Acute Assessment: related to steroid, continue to monitor
--- NOTE | 2016-10-05 12:19 | Discharge Summary ---
Discharge Summary - Discharge Sumary History of Present Illness: Patient is a 76-year-old white female who was recently treated for bronchitis last possible early pneumonia. Patient states that she took the antibiotic as prescribed in symptoms did improve. Within approximately five days after patient the antibiotic patient started having some increasing dyspnea shortness of breath. Patient subsequently came to the ED for further evaluation and treatment. Patient was noted to have a left lower lobe infiltrate which was new since a previous x-ray approximately one week ago. Patient was felt to be developing a pneumonia was subsequently admitted to the hospital for further care and evaluation. Patient does have a history of bronchiectasis and COPD. Condition at Discharge: Stable Home Medications: Ambulatory Orders Medication Instructions Recorded Acetaminophen [Tylenol] 650 mg PO Q4H PRN #100 tablet 04/28/14 Mag Hydrox/Al Hydrox/Simeth 30 ml PO Q6 PRN #50 udc 04/28/14 [Mylanta] Amoxicillin/Potassium Clav 1 each PO BID #14 tablet 10/05/16 [Augmentin 875-125 Tablet] Consultations this Visit: None Procedures this Visit: None Allergies/Adverse Reactions: Allergies Allergy/AdvReac Type Severity Reaction Status Date / Time cefadroxil hydrate Allergy Verified 10/11/16 08:35 [From Duricef] Cephalosporins Allergy Verified 10/11/16 08:35 clindamycin Allergy Verified 10/11/16 08:35 Quinolones Allergy Verified 10/11/16 08:35 Sulfa (Sulfonamide Allergy Verified 10/11/16 08:35 Antibiotics) [Sulfa(Sulfonamide Antibiotics)] levofloxacin [From Levaquin] AdvReac Nausea/Vomi Verified 10/11/16 08:35 ting Cefadroxil Hydrate Allergy Uncoded 10/11/16 08:35 clindamycin Allergy Uncoded 10/11/16 08:35 Sulfa(Sulfonamide Allergy Uncoded 10/11/16 08:35 Antibiotics) PORK AdvReac Intermediate Abdominal Uncoded 10/11/16 08:35 Pain Levofloxacin AdvReac Nausea/Vomi Uncoded 10/11/16 08:35 ting Discharge Summary: Patient was started on azithromycin and Merepenem. Patient was started on IV Solu-Medrol. With the IV steroids patient blood sugars did increase 72 to 200 range. Patient was advised of a low carbohydrate diet. Patient symptoms did improve quite dramatically within 24 hours. Patient initial white count was 12, 700 and normalized within 24 hours. At the time of discharge patient breathing status was much improved. Patient was maintianed on 2 liters per NC. Patient was sent home on PO antibiotic and feels steroids taper. Patient was discharged in stable condition. - Final Diagnosis (1) Pneumonia Problems: improved (2) Hyperglycemia Problems: related to steroids (3) Bronchiectasis Problems: chronic, stable
[2016-10-05] MEDS ORDERED: SALINE FLUSH 10 ML DISP.SYRIN IVF ONE (12:32)
[2016-10-05] MEDS: ENOXAPARIN SODIUM 30 MG/0.3 ML DISP.SYRIN SQ SCH (15:05)
[2016-10-05] MEDS: AZITHROMYCIN 500 MG in 0.9 % SODIUM CHLORIDE 250 ML IV SCH (15:07)
== END 2016-10-05 14:25 | disposition home or self-care (01) | DRG 194 ==
LOC: ED 08:21 → SOUTH 12:00
PROVIDERS: ADMIT Family Medicine; ATTEND Family Medicine
DX: J18.9 Pneumonia, unspecified organism (principal); J44.1 Chronic obstructive pulmonary disease with (acute) exacerbation; J47.1 Bronchiectasis with (acute) exacerbation; R73.9 Hyperglycemia, unspecified
CPT/HCPCS: 36415; 71010; 71020; 80048; 80053; 81002; 83880; 85025; 85610; 87040; 87086; A9270; J0456; J1030; J1650; J2185; J7030; J7050; J7060; 99223; 99233; 99238; 99284; J2920; S1016

== ENCOUNTER 2016-10-11 08:09 | Emergency (ER) | payer MEDICARE, OTHER ==
[2016-10-11 09:08] VITALS: BP 149/67
--- NOTE | 2016-10-11 09:08 | ED Physician Documentation ---
Sore Throat/Dental Pain - HISTORIAN Historian: patient, spouse - HPI Stated Complaint: Sore throat Chief Complaint: Sore Throat Additional Information: released from hosp from pneumonia- just finished z-pack. 0naugmentin-developed sore throat - pos for strept. has 2 more days. pt not sick just sore throat- pneumonia appears gone eats sleeps bowels kidneys ok Onset: days ago (2) Associated Symptoms: sore throat, mild, moderate. denies: fever, chills, unable to swallow - ROS CONST: no problems CVS/RESP: none GI/: denies: problems urinating, nausea, vomiting MS/SKIN/LYMPH: denies: muscle aches, rash NEURO/PSYCH: none - PAST HX Past History: other (copd htn gerd ) Allergies/Adverse Reactions: Allergies Allergy/AdvReac Type Severity Reaction Status Date / Time cefadroxil hydrate Allergy Verified 10/11/16 08:35 [From Duricef] Cephalosporins Allergy Verified 10/11/16 08:35 clindamycin Allergy Verified 10/11/16 08:35 Quinolones Allergy Verified 10/11/16 08:35 Sulfa (Sulfonamide Allergy Verified 10/11/16 08:35 Antibiotics) [Sulfa(Sulfonamide Antibiotics)] levofloxacin [From Levaquin] AdvReac Nausea/Vomi Verified 10/11/16 08:35 ting Cefadroxil Hydrate Allergy Uncoded 10/11/16 08:35 clindamycin Allergy Uncoded 10/11/16 08:35 Sulfa(Sulfonamide Allergy Uncoded 10/11/16 08:35 Antibiotics) PORK AdvReac Intermediate Abdominal Uncoded 10/11/16 08:35 Pain Levofloxacin AdvReac Nausea/Vomi Uncoded 10/11/16 08:35 ting Home Medications: Ambulatory Orders Medication Instructions Recorded Acetaminophen [Tylenol] 650 mg PO Q4H PRN #100 tablet 04/28/14 Mag Hydrox/Al Hydrox/Simeth 30 ml PO Q6 PRN #50 udc 04/28/14 [Mylanta] Amoxicillin/Potassium Clav 1 each PO BID #14 tablet 10/05/16 [Augmentin 875-125 Tablet] - SOCIAL HX Smoking History: non-smoker Alcohol Use: none Drug Use: none - FAMILY HX Family History: No - VITAL SIGNS Vital Signs: Vital Signs Temp Pulse Resp BP Pulse Ox 100.4 F H 94 H 19 158/63 98 10/11/16 08:10 10/11/16 08:10 10/11/16 08:10 10/11/16 08:10 10/11/16 08:10 - REVIEWED ASSESSMENTS Nursing Assessment Reviewed: Yes Vitals Reviewed: Yes ED Results Lab/Radiology - Orders Orders: ED Orders Category Date Time Status Rapid Strep [GRP A STREP SCREEN] Stat Lab 10/11/16 08:15 Ordered Sore throat Physical Exam - EXAM General Appearance: mild distress Head/Neck: head nml inspection, trachea midline, no lymphadenopathy, thyroid nml. No: pain over sinuses, cervical lymphadenopathy Eyes: eyes nml inspection Mouth/Throat: gums nml, voice nml (throat dry slight red). No: pharynx nml ( dry sl red---) Ear/Nose: No: TM erythema Respiratory: No: no resp. distress, breath sounds nml CVS: reg. rate & rhythm, murmur Abdomen: soft, non-tender Extremities: non-tender, nml ROM Skin: warm/dry, normal color. No: cyanosis, diaphoresis, jaundice Neuro/Psych: oriented x3, mood/affect nml Discharge Clincal Impression: strept throat, recent pneumonia Referrals: Sincere Stanton MD [Primary Care Provider] - 2 Days Home Medications: Ambulatory Orders Acetaminophen [Tylenol] 650 mg PO Q4H PRN #100 tablet 04/28/14 Mag Hydrox/Al Hydrox/Simeth [Mylanta] 30 ml PO Q6 PRN #50 udc 04/28/14 Amoxicillin/Potassium Clav [Augmentin 875-125 Tablet] 1 each PO BID #14 tablet 10/05/16 Comments: will dpt start cold theresa vits bal nut hi fluids avoit ext hot cold enviornment plenty rest cont augmentin ret to ed prn Condition: Good Disposition: 01 HOME, SELF-CARE Decision to Admit: NO Decision Time: 09:14
== END 2016-10-11 09:06 | disposition home or self-care (01) ==
LOC: ED 08:09
DX: J02.0 Streptococcal pharyngitis (principal)
CPT/HCPCS: 87880; 99283

== ENCOUNTER 2016-12-09 10:21 | Emergency (ER) | payer MEDICARE, OTHER ==
--- NOTE | 2016-12-09 10:27 | ED Physician Documentation ---
General Adult - HISTORIAN Historian: patient - HPI Stated Complaint: cough and shortness of breath hx COPD Chief Complaint: Cough/ Upper Respiratory Onset: days ago (2) Timing: better Severity: moderate Modifying Factors: movement increases shortness of air Quality: cough with decreased air movement Further Comments: yes (she does see pulm) Last known Well Date: 12/07/16 Last Known Well Time: 09:00 Last known Well Code/Unknown Code: Unknown - ROS CONST: fever, chills. denies: recent illness EYES/ENT: none CVS/RESP: chest pain, shortness of breath, cough GI/: denies: abdominal pain MS/SKIN/LYMPH: none NEURO/PSYCH: denies: headache, fainting, dizziness - PAST HX Past History: COPD, CHF, hypertension, other (reflux ) Surgeries/Procedures: other (left ear, three sinus surgeries, appendix, tonsil, gallbladder, DNC, knee replacment bilateral, big toe fused to foot ) Immunizations: referred to PCP Allergies/Adverse Reactions: Allergies Allergy/AdvReac Type Severity Reaction Status Date / Time cefadroxil hydrate Allergy Verified 12/09/16 10:59 [From Duricef] Cephalosporins Allergy Verified 12/09/16 10:59 clindamycin Allergy Verified 12/09/16 10:59 Quinolones Allergy Verified 12/09/16 10:59 Sulfa (Sulfonamide Allergy Verified 12/09/16 10:59 Antibiotics) [Sulfa(Sulfonamide Antibiotics)] levofloxacin [From Levaquin] AdvReac Nausea/Vomi Verified 12/09/16 10:59 ting Cefadroxil Hydrate Allergy Uncoded 10/11/16 08:35 clindamycin Allergy Uncoded 10/11/16 08:35 Sulfa(Sulfonamide Allergy Uncoded 10/11/16 08:35 Antibiotics) PORK AdvReac Intermediate Abdominal Uncoded 10/11/16 08:35 Pain Levofloxacin AdvReac Nausea/Vomi Uncoded 10/11/16 08:35 ting Home Medications: Ambulatory Orders Medication Instructions Recorded Azithromycin [Zithromax] 250 mg PO QD #4 tablet 12/09/16 Fluticasone/Salmeterol [Advair 1 puff IN DAILY 12/09/16 500-50 Diskus] Hyoscyamine Sulfate [Hyoscyamine 0.125 mg PO DAILY PRN 12/09/16 Sulfate] Methylprednisolone [Medrol] 4 mg PO DIRECTED #21 tablet 12/09/16 Mometasone Furoate [Nasonex] 1 spray NA DAILY 12/09/16 - SOCIAL HX Smoking History: non-smoker Alcohol Use: none Drug Use: none - FAMILY HX Family History: Yes - VITAL SIGNS Vital Signs: Vital Signs Temp Pulse Resp BP Pulse Ox 149/67 10/11/16 09:06 - REVIEWED ASSESSMENTS Nursing Assessment Reviewed: Yes Vitals Reviewed: Yes Progress - Results/Orders Results/Orders: discussed with pt . she is wanting to try to go home. DG - Progress Progress: 12:25 pm no change per pt will order duoneb breathing treatment Waiting on CBC 1333: tolerating infusion well. No further complaints DG 1534: Symptoms are improved DG ED Results Lab/Radiology - Radiology Radiology Impressions: Examination: PA and lateral chest. History: Evaluate lung evla. Comparison exam: 04 October 2016 Findings: PA lateral chest demonstrate a prominent cardiac silhouette. Vascular calcification by the aortic arch. Continued chronic appearing interstitial changes and blunting of the left costophrenic margin. Osseous structures are appropriate for age. Impression: Continued chronic interstitial changes and left base effusion. No appreciable change when compared with the September 2016 examination. Electronically signed on Dec 09, 2016 11:44:04 AM CDT by: Bautista Salas General Adult Physical Exam - PHYSICAL EXAM GENERAL APPEARANCE: no distress EENT: eye inspection normal, ENT inspection normal NECK: normal inspection RESPIRATORY: wheezes, rhonchi CVS: reg rate & rhythm, heart sounds normal, equal pulses, murmur ABDOMEN: soft, normal bowel sounds SKIN: warm/dry, normal color EXTREMITIES: non-tender, normal range of motion, no evidence of injury NEURO: oriented X3, CN's nml as tested, motor nml, sensation nml, mood/affect nml Discharge Clincal Impression: Bronchitis Prescriptions: Azithromycin [Zithromax] 250 mg PO QD #4 tablet Methylprednisolone [Medrol] 4 mg PO DIRECTED #21 tablet Referrals: Sincere Stanton MD [Primary Care Provider] - 2 Days Condition: Stable Disposition: 01 HOME, SELF-CARE Decision to Admit: NO Date of Decison to Admit: 12/09/16 Decision Time: 13:34
[2016-12-09] MEDS ORDERED: BUDESONIDE 0.5MG/2ML AMPUL.NEB NEB ONE (11:21)
[2016-12-09] MEDS: BUDESONIDE 0.5MG/2ML AMPUL.NEB NEB SCH (11:45)
[2016-12-09 11:47] LABS: eGFR (African) > 60; eGFR (Non-African) > 60
--- NOTE | 2016-12-09 11:58 | Diagnostic Imaging Report ---
LAUREN STANTON [facility] [address] [facility] [address] [place], [place]. [address] Report Submission Date: Dec 09, 2016 11:44:04 AM CDT Patient Study Name: PATRICK MARTIN Date: Dec 09, 2016 11:28:17 AM CDT Modality Type: CR Gender: F Description: CHEST : 36 Institution: [facility] Physician: LAUREN STANTON Examination: PA and lateral chest. History: Evaluate lung vela. Comparison exam: 04 October 2016 Findings: PA lateral chest demonstrate a prominent cardiac silhouette. Vascular calcification by the aortic arch. Continued chronic appearing interstitial changes and blunting of the left costophrenic margin. Osseous structures are appropriate for age. Impression: Continued chronic interstitial changes and left base effusion. No appreciable change when compared with the September 2016 examination. Electronically signed on Dec 09, 2016 11:44:04 AM CDT by: Bautista HORAN
[2016-12-09 12:27] LABS: MEAN CORPUSCULAR HEMOGLOBIN 29.7 pg (28.0-34.0); MEAN CORPUSCULAR VOLUME 95.4 fl (80.0-100.0)
[2016-12-09] MEDS: IPRATROPIUM/ALBUTEROL SULFATE 3 ML AMPUL.NEB NEB ONE (12:27)
[2016-12-09] MEDS: methylPREDNISolone SOD SUCC 125 MG/2 ML VIAL IVP ONE (13:00)
[2016-12-09] MEDS: AZITHROMYCIN 500 MG in 0.9 % SODIUM CHLORIDE 250 ML IV ONE (13:15)
[2016-12-09 15:33] VITALS: BP 126/47
== END 2016-12-09 15:36 | disposition home or self-care (01) ==
LOC: ED 10:21
DX: J40 Bronchitis, not specified as acute or chronic (principal)
CPT/HCPCS: 71020; 80053; 83880; 85027; 87040; J0456; J2930; J7050; J7626; 96361; 96374; 96375; 99283; S1016

== ENCOUNTER 2016-12-16 09:00 | Inpatient (IN) | payer MEDICARE, OTHER ==
--- NOTE | 2016-12-16 09:11 | ED Physician Documentation ---
General Adult - HISTORIAN Historian: patient, spouse - HPI Stated Complaint: shortness of breath Chief Complaint: Cough/ Upper Respiratory Onset: other (she reports after last ER visit 12.09.16 she had "a few days" where she felt better and she was "back to breathing bad" ) Timing: still present, worse Severity: moderate Modifying Factors: when she moves around the shortness of air is worse Quality: "bad" Location: Cough, congestion and shortness of breath Further Comments: no Last known Well Date: 12/09/16 Last Known Well Time: 08:00 Last known Well Code/Unknown Code: Unknown - ROS CONST: fever, sweating, recent illness, weakness, chills EYES/ENT: none CVS/RESP: shortness of breath, cough GI/: none MS/SKIN/LYMPH: none NEURO/PSYCH: headache. denies: dizziness, tingling, numbness - PAST HX Past History: other (COPD, reflux, CHF, HTN, ) Surgeries/Procedures: other (left ear, sinus (3x), T&A, cataract, appendix, gallbladder, DNC, BKR ) Allergies/Adverse Reactions: Allergies Allergy/AdvReac Type Severity Reaction Status Date / Time cefadroxil hydrate Allergy Verified 12/16/16 09:56 [From Duricef] Cephalosporins Allergy Verified 12/16/16 09:56 clindamycin Allergy Verified 12/16/16 09:56 Quinolones Allergy Verified 12/16/16 09:56 Sulfa (Sulfonamide Allergy Verified 12/16/16 09:56 Antibiotics) [Sulfa(Sulfonamide Antibiotics)] levofloxacin [From Levaquin] AdvReac Nausea/Vomi Verified 12/16/16 09:56 ting Cefadroxil Hydrate Allergy Uncoded 12/16/16 09:56 clindamycin Allergy Uncoded 12/16/16 09:56 Sulfa(Sulfonamide Allergy Uncoded 12/16/16 09:56 Antibiotics) PORK AdvReac Intermediate Abdominal Uncoded 12/16/16 09:56 Pain Levofloxacin AdvReac Nausea/Vomi Uncoded 12/16/16 09:56 ting Home Medications: Ambulatory Orders Medication Instructions Recorded Azithromycin [Zithromax] 250 mg PO QD #4 tablet 12/09/16 Fluticasone/Salmeterol [Advair 1 puff IN DAILY 12/09/16 500-50 Diskus] Hyoscyamine Sulfate [Hyoscyamine 0.125 mg PO DAILY PRN 12/09/16 Sulfate] Methylprednisolone [Medrol] 4 mg PO DIRECTED #21 tablet 12/09/16 Mometasone Furoate [Nasonex] 1 spray NA DAILY 12/09/16 - SOCIAL HX Smoking History: non-smoker Alcohol Use: none Drug Use: none - FAMILY HX Family History: No - VITAL SIGNS Vital Signs: Vital Signs Temp Pulse Resp BP Pulse Ox 126/47 12/09/16 15:31 - REVIEWED ASSESSMENTS Nursing Assessment Reviewed: Yes Vitals Reviewed: Yes ED Results Lab/Radiology - Radiology Radiology Impressions: Examination: PA and lateral chest. History: Evaluate lung vela. Comparison exam: 09 December 2016 Findings: PA lateral chest demonstrates a prominent cardiac silhouette. Vascular calcifications involving the aortic arch. Continued chronic interstitial changes. Increased parenchymal fullness involving the lung bases. Continued blunting of the left costophrenic margin. Osseous structures are appropriate for age. Impression: Continued chronic parenchymal interstitial changes and left base fusion. Slightly increased parenchymal infiltrates when compared with the prior examination. Electronically signed on Dec 16, 2016 9:46:35 AM CDT by: Bautista Salas General Adult Physical Exam - PHYSICAL EXAM GENERAL APPEARANCE: mild distress EENT: eye inspection normal NECK: normal inspection RESPIRATORY: wheezes, rhonchi, other (mild resp distress ) CVS: reg rate & rhythm, heart sounds normal, other (mild edema in lower legs - non pitting - non tender ) ABDOMEN: soft, no organomegaly, normal bowel sounds SKIN: warm/dry, normal color EXTREMITIES: non-tender NEURO: oriented X3, CN's nml as tested, motor nml, sensation nml Discharge Clincal Impression: Pneumonia Condition: Stable Disposition: ADMITTED INPATIENT Decision to Admit: [id number] Date of Decison to Admit: 12/16/16 Decision Time: 10:56
[2016-12-16 09:35] LABS: BASOPHILS % 0.4 (0.0-1.5); EOSINOPHILS % 4.1 % (0.0-6.8); MEAN CORPUSCULAR HEMOGLOBIN 29.9 pg (28.0-34.0); MEAN CORPUSCULAR VOLUME 94.2 fl (80.0-100.0); MONOCYTES % 3.4 % (0.0-11.0); NEUTROPHILS # 9.3 # k/uL (1.4-7.7)
[2016-12-16] MEDS ORDERED: BUDESONIDE 0.5MG/2ML AMPUL.NEB NEB ONE ×2 (09:38→09:44)
[2016-12-16] MEDS ORDERED: methylPREDNISolone SOD SUCC 125 MG/2 ML VIAL ONE (09:39)
[2016-12-16] MEDS ORDERED: methylPREDNISolone SOD SUCC 125 MG/2 ML VIAL IVP ONE (09:43)
[2016-12-16 09:47] LABS: eGFR (African) > 60; eGFR (Non-African) > 60
[2016-12-16] MEDS ORDERED: LEVOFLOXACIN 500MG/D5W 100ML 500 MG in PREMIX BAG 1 BAG IV ONE (09:51)
[2016-12-16] MEDS ORDERED: BUDESONIDE 0.5MG/2ML AMPUL.NEB NEB SCH (10:00)
[2016-12-16] MEDS ORDERED: LEVOFLOXACIN 500MG/D5W 100ML 100 ML IV ONE (10:07)
[2016-12-16] MEDS ORDERED: IPRATROPIUM/ALBUTEROL SULFATE 3 ML AMPUL.NEB NEB ONE (10:21)
[2016-12-16] MEDS ORDERED: ONDANSETRON HCL/PF 4 MG/ 2ML VIAL IVP PRN (10:51)
--- NOTE | 2016-12-16 11:48 | History and Physical Report ---
History of Present Illnes - History of Present Illness Reason for Visit: dyspnea History of Present Illness: 76-year-old white female who was seen approximately one week ago for increasing shortness of breath dyspnea. Patient has a history of bronchiectasis and COPD. Patient has been using hyper nebulization treatment and her pulmonary medications as prescribed. Patient was started on azithromycin last week. Patient that that she did have some mild transit improvement in her symptoms. Over the last four days ago she is been having increasing shortness of breath dyspnea. Patient does have a productive cough up some yellow phlegm. Patient denies him offices. Patient was reevaluated in the emergency room. With noted be having some increasing infiltrates in her lungs. Due to her increasing shortness of breath increasing pulmonary infiltrates and her chronic pulmonary problem patient was subsequently admitted to the hospital for further care and evaluation. - Past Medical History Cardiac: HTN Pulmonary: Asthma, COPD, Other (chronic bronchiectasis) PUPPY WALKER: TIA Gastrointestinal: GERD Heme/Onc: Other (thrombocyotosis, anemia) - Past Surgical History Past Surgical History: Appendectomy, Cholecystectomy, Tonsillectomy, Other (D&C , toe fusion) - Past Family History Mother Family History: (89yo, CHF) Father Family History: (80 yo ,unknown cause) Brother 1 Family History: Other (COPD) - Past Social History Smoke: No Alcohol: None Drugs: None Lives: With Family Domestic Violence: Negative - Health Maintenance Health Maintenance: Cholesterol, Influenza Vaccine, Pneumococcal Vaccine Pneumonia Vaccine: Yes Resuscitation Status: full code Review of Systems - Review of Systems Constitutional: Weakness. negative: Fever, Chills Eyes: negative: pain, vision change ENT: Nose Discharge (clear). negative: Ear Pain, Ear Discharge, Nose Pain, Nose Congestion, Mouth Pain, Mouth Swelling Respiratory: Cough, Shortness of Breath, SOB with Excertion, Sputum (mild yellow ), Wheezing. negative: Hemoptysis, Pleuritic Pain Cardiovascular: negative: Chest Pain, Palpitations, Orthopnea, Paroxysmal Noc. Dyspnea, Edema, Light Headedness Gastrointestinal: negative: Nausea, Vomiting, Abdominal Pain, Diarrhea, Constipation, Melena, Hematochezia Genitourinary: negative: Dysuria, Frequency, Hematuria Musculoskeletal: Back Pain. negative: Neck Pain, Shoulder Pain Skin: negative: Rash Neurological: negative: Weakness, Numbness, Incoordination, Change in Speech, Confusion - Medications/Allergies Allergies/Adverse Reactions: Allergies Allergy/AdvReac Type Severity Reaction Status Date / Time cefadroxil hydrate Allergy Verified 12/16/16 09:56 [From Duricef] Cephalosporins Allergy Verified 12/16/16 09:56 clindamycin Allergy Verified 12/16/16 09:56 Quinolones Allergy Verified 12/16/16 09:56 Sulfa (Sulfonamide Allergy Verified 12/16/16 09:56 Antibiotics) [Sulfa(Sulfonamide Antibiotics)] levofloxacin [From [facility]] AdvReac Nausea/Vomi Verified 12/16/16 09:56 ting PORK AdvReac Intermediate Abdominal Uncoded 12/16/16 09:56 Pain Current Inpatient Medications: Current Inpatient Medications Albuterol Sulfate (Ventolin) 5 mg NEB Q6 [facility] MIGUEL Amlodipine Besylate (Norvasc) 10 mg PO DAILY [facility] Clopidogrel Bisulfate (Plavix) 75 mg PO DAILY [facility] Furosemide (Lasix) 40 mg PO DAILY LU[facility] MIGUEL Guaifenesin (Mucinex) 600 mg PO BID [facility] Levofloxacin/Dextrose 500 mg/ (PREMIX BAG) 100 mls @ 100 mls/hr IV DAILY [facility] Stop: 12/31/16 08:59 Sodium Chloride (Normal Saline) 1,000 mls @ 125 mls/hr IV Q8H [facility] Lisinopril (Prinivil) 10 mg PO DAILY [facility] Methylprednisolone Sodium Succinate (Solu-Medrol) 60 mg IVP Q12 [facility] Ondansetron HCl (Zofran 4 Mg/2 Ml) 4 mg IVP Q6H PRN PRN Reason: Nausea / Vomiting Pantoprazole Sodium (Protonix) 40 mg PO 0700 [facility] Fluticasone/Salmeterol (Advair 500-50 Diskus) 1 puff IH DAILY [facility] Sodium Chloride (Normal Saline Flush) 3 ml IV BID [facility] Exam - Exam Vital Signs: Vital Signs (72 hours) 12/16/16 10:50 Temperature 100.1 F H Pulse Rate [ 87 Right Pulse ox] Respiratory 18 Rate Blood Pressure 120/69 [Left Arm] O2 Sat by Pulse 100 Oximetry General: Alert, Oriented to Person, Oriented to Place, Oriented to Time, Cooperative, Mild distress HEENT: Atraumatic, PERRLA, EOMI, Mouth Mucous membr. moist/Arjay, Nose Mucous membr. moist/Arjay Neck: Normal Range of Motion. No: Stridor, Rigidity, Lymphadenopathy Carotids: WNL Thyroid: WNL Lungs: Speaks full Sentences, Respiratory Distress (mild), Wheezes, Rales, Rhonchi (R>L) Cardiovascular: Regular rate, Normal S1, Normal S2, No murmurs. No: Gallops, Rubs, Murmur Abdomen: Normal bowel sounds, Soft, No tenderness, No hepatospenomegaly, No masses. No: Distended Integumentary: Normal, [place]jay, Warm, Dry Extremities: No clubbing, No cyanosis, Normal pulses, Other (trace edema) Neurological: Normal gait, Normal speech, Strength Equal Bilat, Normal tone, Sensation intact, Cranial nerves 3-12 NL, Reflexes 2+ Psych/Mental Status: Mental status NL, Mood NL, Appropriate Affect Assessment/Plan - Assessment/Plan (1) Pneumonia Status: Acute Qualifiers: Pneumonia type: due to unspecified organism Laterality: bilateral Lung location: lower lobe of lung Qualified Code(s): J18.9 - Pneumonia, unspecified organism (2) Bronchiectasis Status: Chronic Qualifiers: Bronchiectasis type: with acute lower respiratory infection Qualified Code( s): J47.0 - Bronchiectasis with acute lower respiratory infection (3) Chronic obstructive lung disease Status: Chronic Assessment: continue home meds and monitor (4) Essential hypertension Status: Chronic Assessment: continue home meds and monitor VTE Assessment - RISK FACTOR SCORE VTE RISK FACTOR SCORES: AGE OVER 60 YEARS, ACUTE INFECTION OTHER THEN SEPSIS - RISK VTE MODERATE RISK: SCORE OF 2 (RISK PROXIMAL DVT 2-4%) PROPHYAXIS NEEDED
[2016-12-16] MEDS ORDERED: ALBUTEROL SULFATE 2.5 MG/3 ML AMPUL.NEB NEB SCH (12:00)
[2016-12-16] MEDS ORDERED: ALBUTEROL SULFATE 2.5 MG/3 ML AMPUL.NEB NEB ONE (12:11)
[2016-12-16] MEDS ORDERED: HYOSCYAMINE SULFATE 0.125 MG TAB.SUBL SL PRN (12:13)
[2016-12-16] MEDS: 0.9 % SODIUM CHLORIDE 1,000 ML IV SCH ×2 (12:34→20:54)
[2016-12-16] MEDS: PANTOPRAZOLE SODIUM 40 MG TABLET PO SCH (12:34)
[2016-12-16] MEDS: ALBUTEROL SULFATE 2.5 MG/3 ML AMPUL.NEB NEB SCH ×3 (12:34→20:55)
[2016-12-16 13:46] VITALS: BMI 28.7
--- NOTE | 2016-12-16 15:49 | Diagnostic Imaging Report ---
LAUREN STANTON [facility] [address] [facility] [address] [place], [place]. [address] Report Submission Date: Dec 16, 2016 9:46:35 AM CDT Patient Study Name: PATRICK MARTIN Date: Dec 16, 2016 9:36:57 AM CDT Modality Type: CR Gender: F Description: CHEST : 36 Institution: [facility] Physician: LAUREN STANTON Examination: PA and lateral chest. History: Evaluate lung vela. Comparison exam: 09 December 2016 Findings: PA lateral chest demonstrates a prominent cardiac silhouette. Vascular calcifications involving the aortic arch. Continued chronic interstitial changes. Increased parenchymal fullness involving the lung bases. Continued blunting of the left costophrenic margin. Osseous structures are appropriate for age. Impression: Continued chronic parenchymal interstitial changes and left base fusion. Slightly increased parenchymal infiltrates when compared with the prior examination. Electronically signed on Dec 16, 2016 9:46:35 AM CDT by: Bautista HORAN
[2016-12-16] MEDS: methylPREDNISolone SOD SUCC 40 MG/ML VIAL IVP SCH (19:54)
[2016-12-16] MEDS: SALINE FLUSH 10 ML DISP.SYRIN IV SCH (19:55)
[2016-12-17] MEDS: ALBUTEROL SULFATE 2.5 MG/3 ML AMPUL.NEB NEB SCH ×6 (01:05→20:19)
[2016-12-17] MEDS: PANTOPRAZOLE SODIUM 40 MG TABLET PO SCH (05:49)
[2016-12-17 06:20] LABS: BASOPHILS % 0.3 (0.0-1.5); EOSINOPHILS % 0.5 % (0.0-6.8); MEAN CORPUSCULAR VOLUME 93.2 fl (80.0-100.0); NEUTROPHILS # 7.9 # k/uL (1.4-7.7)
[2016-12-17 06:43] LABS: eGFR (African) > 60; eGFR (Non-African) > 60
[2016-12-17] MEDS: FLUTICASONE/SALMETEROL 500-50 INHALER IH SCH (08:16)
[2016-12-17] MEDS: FUROSEMIDE 40 MG TABLET PO SCH (08:18)
[2016-12-17] MEDS: LISINOPRIL 5 MG TABLET PO SCH (08:19)
[2016-12-17] MEDS: CLOPIDOGREL BISULFATE 75 MG TABLET PO SCH (08:19)
[2016-12-17] MEDS: amLODIPine BESYLATE 5 MG TABLET PO SCH (08:19)
[2016-12-17] MEDS ORDERED: FUROSEMIDE 40 MG TABLET PO SCH (09:00)
[2016-12-17] MEDS: methylPREDNISolone SOD SUCC 40 MG/ML VIAL IVP SCH ×2 (09:06→20:19)
[2016-12-17] MEDS ORDERED: LEVOFLOXACIN 500MG/D5W 100ML 100 ML IV ONE (09:09)
[2016-12-17] MEDS: LEVOFLOXACIN 500MG/D5W 100ML 500 MG in PREMIX BAG 1 BAG IV SCH (09:15)
[2016-12-17] MEDS: SALINE FLUSH 10 ML DISP.SYRIN IV SCH ×2 (09:21→20:19)
[2016-12-17] MEDS: 0.9 % SODIUM CHLORIDE 1,000 ML IV SCH (15:12)
[2016-12-17] MEDS ORDERED: BENZONATATE 100 MG CAPSULE PO PRN (16:31)
[2016-12-17] MEDS ORDERED: ZOLPIDEM TARTRATE 5 MG TABLET PO PRN (16:31)
[2016-12-17] MEDS ORDERED: 0.9 % SODIUM CHLORIDE 250 ML IV ONE (17:22)
[2016-12-17] MEDS ORDERED: AZITHROMYCIN 500 MG VIAL IV ONE (17:22)
[2016-12-17] MEDS: AZITHROMYCIN 500 MG in 0.9 % SODIUM CHLORIDE 250 ML IV SCH (17:39)
[2016-12-18] MEDS: 0.9 % SODIUM CHLORIDE 1,000 ML IV SCH ×3 (00:54→11:11)
[2016-12-18] MEDS: ALBUTEROL SULFATE 2.5 MG/3 ML AMPUL.NEB NEB SCH ×6 (01:10→21:41)
[2016-12-18] MEDS: PANTOPRAZOLE SODIUM 40 MG TABLET PO SCH (06:01)
[2016-12-18] MEDS: FLUTICASONE/SALMETEROL 500-50 INHALER IH SCH (08:36)
[2016-12-18] MEDS: amLODIPine BESYLATE 5 MG TABLET PO SCH (08:37)
[2016-12-18] MEDS: FUROSEMIDE 40 MG TABLET PO SCH (08:37)
[2016-12-18] MEDS: CLOPIDOGREL BISULFATE 75 MG TABLET PO SCH (08:38)
[2016-12-18] MEDS: LISINOPRIL 5 MG TABLET PO SCH (08:38)
[2016-12-18] MEDS ORDERED: LEVOFLOXACIN 500MG/D5W 100ML 100 ML IV ONE (08:45)
--- NOTE | 2016-12-18 09:08 | Inpatient Progress Note ---
Subjective - Required Recertification Statement I anticipate X number of days because-include discharge plan: 1 day - Review of Systems Events since last encounter: Patient seems to be improving, less productive cough, states that she can breath better, still PORTILLO. No fever or chills. BS being treated with sliding scale insulin. Patient did sleep some better last noc, did not use Ambien. Objective - Exam Vitals and I&O: Vital Signs Temp 98.4 F 12/18/16 04:41 Pulse 115 H 12/18/16 04:41 Resp 20 12/18/16 04:41 BP 151/75 12/18/16 04:41 Pulse Ox 96 12/18/16 04:41 Intake & Output 12/17/16 12/17/16 12/18/16 11:59 23:59 11:59 Intake Total 360 1675 1500 Balance 360 1675 1500 Weight 85.275 kg 87.09 kg Intake: IV 775 1500 Right Antecubital 775 1500 Oral 360 900 Other: Voiding Method Toilet Toilet # Voids 3 2 General: Alert, Oriented to Person, Oriented to Place, Oriented to Time Neck: Supple, No JVD Lungs: Normal air movement, Speaks full Sentences, Wheezes, Rhonchi (jimproved over yesterday) Cardiovascular: Regular rate, Normal S1, Normal S2, No murmurs Skin: Normal, [place], Warm, Dry Psych/Mental Status: Mental status NL - Results Results: Laboratory Results WBC 10.10 K/ul (4.00-12.00) 12/17/16 06:10 RBC 3.28 M/ul (3.90-5.20) L 12/17/16 06:10 Hgb 9.8 g/dL (12.0-16.0) L 12/17/16 06:10 Hct 30.5 % (34.5-46.5) L 12/17/16 06:10 MCV 93.2 fl (80.0-100.0) 12/17/16 06:10 MCH 30.0 pg (28.0-34.0) 12/17/16 06:10 MCHC 32.2 g/dL (30.0-36.0) 12/17/16 06:10 RDW 12.7 % (11.3-14.3) 12/17/16 06:10 Plt Count 443 K/mm3 (130-400) H 12/17/16 06:10 Neut % (Auto) 78.5 % (39.0-79.0) 12/17/16 06:10 Lymph % (Auto) 18.2 % (16.0-50.0) 12/17/16 06:10 [place] % (Auto) 2.0 % (0.0-11.0) 12/17/16 06:10 Eos % (Auto) 0.5 % (0.0-6.8) 12/17/16 06:10 Baso % (Auto) 0.3 (0.0-1.5) 12/17/16 06:10 Neut # (Auto) 7.9 # k/uL (1.4-7.7) H 12/17/16 06:10 Lymph # (Auto) 1.8 # k/uL (0.6-4.0) 12/17/16 06:10 [place] # (Auto) 0.2 # k/uL (0.0-0.9) 12/17/16 06:10 Eos # (Auto) 0.0 # k/uL (0.0-0.6) 12/17/16 06:10 Baso # (Auto) 0.0 # k/uL (0.0-0.5) 12/17/16 06:10 Reactive Lymphs % 0.5 % (0.0-5.0) 12/17/16 06:10 Reactive Lymphs # 0.0 # k/uL (0.0-0.8) 12/17/16 06:10 Sodium 133 mmol/L (137-145) L 12/17/16 06:10 Potassium 4.1 mmol/L (3.5-5.1) 12/17/16 06:10 Chloride 106 mmol/L (98-107) 12/17/16 06:10 Carbon Dioxide 21 mmol/L (22-30) L 12/17/16 06:10 BUN 13 mg/dL (7-17) 12/17/16 06:10 Creatinine 0.60 mg/dL (0.52-1.04) 12/17/16 06:10 Estimated Creat Clear 122 12/17/16 06:10 Est GFR ( Amer) > 60 (60-) 12/17/16 06:10 Est GFR (Non-Af Amer) > 60 (60-) 12/17/16 06:10 Glucose 186 mg/dL (74-106) H 12/17/16 06:10 Calcium 9.3 mg/dL (8.4-10.2) 12/17/16 06:10 Total Bilirubin 0.3 mg/dL (0.2-1.3) 12/17/16 06:10 AST 15 U/L (15-46) 12/17/16 06:10 ALT 25 U/L (13-69) 12/17/16 06:10 Alkaline Phosphatase 60 U/L (38-126) 12/17/16 06:10 NT-Pro-B Natriuret Pep 334.5 pg/mL (15.0-450.0) 12/16/16 09:30 Total Protein 6.1 g/dL (6.3-8.2) L 12/17/16 06:10 Albumin 3.2 g/dL (3.5-5.0) L 12/17/16 06:10 Assessment/Plan - Assessment/Plan (1) Pneumonia Status: Acute Qualifiers: Pneumonia type: due to unspecified organism Laterality: bilateral Lung location: lower lobe of lung Qualified Code(s): J18.9 - Pneumonia, unspecified organism Plan: continue with present treatment, hope to discharge in the AM (2) Bronchiectasis Status: Chronic Qualifiers: Bronchiectasis type: with acute lower respiratory infection Qualified Code( s): J47.0 - Bronchiectasis with acute lower respiratory infection Assessment: stable (3) Chronic obstructive lung disease Status: Chronic (4) Essential hypertension Status: Chronic Assessment: stable
--- NOTE | 2016-12-18 09:08 | Inpatient Progress Note ---
Subjective - Required Recertification Statement I anticipate X number of days because-include discharge plan: 2 days - Review of Systems Events since last encounter: Patient states that she is doing some better at this time. Did not sleep well last noc due to waking up and not getting back to sleep and her cough. Cough continues to be productive of some green/yellow phlegm. No blood noted. Is still having some wheezing and PORTILLO. No fever or chills noted. SD have been elevated some. General: Chills Cardiovascular: Denies: Chest Pain, Palpitations Gastrointestinal: Denies: Nausea, Vomiting, Abdominal Pain Objective - Exam Vitals and I&O: Vital Signs Temp 98.4 F 12/18/16 04:41 Pulse 115 H 12/18/16 04:41 Resp 20 12/18/16 04:41 BP 151/75 12/18/16 04:41 Pulse Ox 96 12/18/16 04:41 Intake & Output 12/17/16 12/17/16 12/18/16 11:59 23:59 11:59 Intake Total 360 1675 1500 Balance 360 1675 1500 Weight 85.275 kg 87.09 kg Intake: IV 775 1500 Right Antecubital 775 1500 Oral 360 900 Other: Voiding Method Toilet Toilet # Voids 3 2 General: Alert, Oriented to Person, Oriented to Place, Oriented to Time, Cooperative Neck: Supple, No JVD Lungs: Normal air movement, Speaks full Sentences, Respiratory Distress (mild), Wheezes (mild expiratory), Rales (none), Rhonchi (course bilateral) Cardiovascular: Regular rate, Normal S1, Normal S2, No murmurs Abdomen: Normal bowel sounds, Soft, No tenderness Extremities: No clubbing, No edema Skin: Normal, [place], Warm Neurological: Normal gait, Normal speech, Strength Equal Bilat - Results Results: Laboratory Results WBC 10.10 K/ul (4.00-12.00) 12/17/16 06:10 RBC 3.28 M/ul (3.90-5.20) L 12/17/16 06:10 Hgb 9.8 g/dL (12.0-16.0) L 12/17/16 06:10 Hct 30.5 % (34.5-46.5) L 12/17/16 06:10 MCV 93.2 fl (80.0-100.0) 12/17/16 06:10 MCH 30.0 pg (28.0-34.0) 12/17/16 06:10 MCHC 32.2 g/dL (30.0-36.0) 12/17/16 06:10 RDW 12.7 % (11.3-14.3) 12/17/16 06:10 Plt Count 443 K/mm3 (130-400) H 12/17/16 06:10 Neut % (Auto) 78.5 % (39.0-79.0) 12/17/16 06:10 Lymph % (Auto) 18.2 % (16.0-50.0) 12/17/16 06:10 [place] % (Auto) 2.0 % (0.0-11.0) 12/17/16 06:10 Eos % (Auto) 0.5 % (0.0-6.8) 12/17/16 06:10 Baso % (Auto) 0.3 (0.0-1.5) 12/17/16 06:10 Neut # (Auto) 7.9 # k/uL (1.4-7.7) H 12/17/16 06:10 Lymph # (Auto) 1.8 # k/uL (0.6-4.0) 12/17/16 06:10 [place] # (Auto) 0.2 # k/uL (0.0-0.9) 12/17/16 06:10 Eos # (Auto) 0.0 # k/uL (0.0-0.6) 12/17/16 06:10 Baso # (Auto) 0.0 # k/uL (0.0-0.5) 12/17/16 06:10 Reactive Lymphs % 0.5 % (0.0-5.0) 12/17/16 06:10 Reactive Lymphs # 0.0 # k/uL (0.0-0.8) 12/17/16 06:10 Sodium 133 mmol/L (137-145) L 12/17/16 06:10 Potassium 4.1 mmol/L (3.5-5.1) 12/17/16 06:10 Chloride 106 mmol/L (98-107) 12/17/16 06:10 Carbon Dioxide 21 mmol/L (22-30) L 12/17/16 06:10 BUN 13 mg/dL (7-17) 12/17/16 06:10 Creatinine 0.60 mg/dL (0.52-1.04) 12/17/16 06:10 Estimated Creat Clear 122 12/17/16 06:10 Est GFR ( Amer) > 60 (60-) 12/17/16 06:10 Est GFR (Non-Af Amer) > 60 (60-) 12/17/16 06:10 Glucose 186 mg/dL (74-106) H 12/17/16 06:10 Calcium 9.3 mg/dL (8.4-10.2) 12/17/16 06:10 Total Bilirubin 0.3 mg/dL (0.2-1.3) 12/17/16 06:10 AST 15 U/L (15-46) 12/17/16 06:10 ALT 25 U/L (13-69) 12/17/16 06:10 Alkaline Phosphatase 60 U/L (38-126) 12/17/16 06:10 NT-Pro-B Natriuret Pep 334.5 pg/mL (15.0-450.0) 12/16/16 09:30 Total Protein 6.1 g/dL (6.3-8.2) L 12/17/16 06:10 Albumin 3.2 g/dL (3.5-5.0) L 12/17/16 06:10 Assessment/Plan - Assessment/Plan (1) Pneumonia Status: Acute Qualifiers: Pneumonia type: due to unspecified organism Laterality: bilateral Lung location: lower lobe of lung Qualified Code(s): J18.9 - Pneumonia, unspecified organism Plan: continue with IV antibiotics (2) Bronchiectasis Status: Chronic Qualifiers: Bronchiectasis type: with acute lower respiratory infection Qualified Code( s): J47.0 - Bronchiectasis with acute lower respiratory infection Assessment: continue with present treatment (3) Chronic obstructive lung disease Status: Chronic (4) Essential hypertension Status: Chronic Assessment: stable on home meds (5) Insomnia Status: Acute Assessment: I will give something to help with cough, will start ambien PRN
[2016-12-18] MEDS: methylPREDNISolone SOD SUCC 40 MG/ML VIAL IVP SCH ×2 (09:26→20:45)
[2016-12-18] MEDS: SALINE FLUSH 10 ML DISP.SYRIN IV SCH ×2 (09:27→20:08)
[2016-12-18] MEDS: LEVOFLOXACIN 500MG/D5W 100ML 500 MG in PREMIX BAG 1 BAG IV SCH (09:42)
[2016-12-18] MEDS ORDERED: AZITHROMYCIN 500 MG VIAL IV ONE (17:46)
[2016-12-18] MEDS ORDERED: 0.9 % SODIUM CHLORIDE 250 ML IV ONE (17:49)
[2016-12-18] MEDS: AZITHROMYCIN 500 MG in 0.9 % SODIUM CHLORIDE 250 ML IV SCH (18:15)
[2016-12-19] MEDS: ALBUTEROL SULFATE 2.5 MG/3 ML AMPUL.NEB NEB SCH ×2 (01:39→10:30)
[2016-12-19] MEDS: PANTOPRAZOLE SODIUM 40 MG TABLET PO SCH (06:57)
[2016-12-19] MEDS: FUROSEMIDE 40 MG TABLET PO SCH (09:10)
[2016-12-19] MEDS: FLUTICASONE/SALMETEROL 500-50 INHALER IH SCH (09:10)
[2016-12-19] MEDS: SALINE FLUSH 10 ML DISP.SYRIN IV SCH (09:11)
[2016-12-19] MEDS: CLOPIDOGREL BISULFATE 75 MG TABLET PO SCH (09:12)
[2016-12-19] MEDS: amLODIPine BESYLATE 5 MG TABLET PO SCH (09:12)
[2016-12-19] MEDS: LISINOPRIL 5 MG TABLET PO SCH (09:13)
[2016-12-19] MEDS: LEVOFLOXACIN 500MG/D5W 100ML 500 MG in PREMIX BAG 1 BAG IV SCH (09:19)
--- NOTE | 2016-12-19 09:23 | Discharge Summary ---
Discharge Summary - Discharge Sumary History of Present Illness: 76-year-old white female who was seen approximately one week prior to admission for increasing shortness of breath dyspnea. Patient has a history of bronchiectasis and COPD. Patient has been using nebulization treatments and her pulmonary medications as prescribed. Patient was started on azithromycin last week. Patient that that she did have some mild transit improvement in her symptoms. Over the last four days prior to admission she has been having increasing shortness of breath dyspnea. Patient does have a productive cough up some yellow phlegm. Patient denies him hemophysis. Patient was reevaluated in the emergency room. With noted be having some increasing infiltrates in her lungs. Due to her increasing shortness of breath increasing pulmonary infiltrates and her chronic pulmonary problem patient was subsequently admitted to the hospital for further care and evaluation. Condition at Discharge: Stable Home Medications: Ambulatory Orders Medication Instructions Recorded Fluticasone/Salmeterol [Advair 1 puff IN DAILY 12/09/16 500-50 Diskus] Hyoscyamine Sulfate 0.125 mg PO Q6 PRN 12/09/16 Mometasone Furoate [Nasonex] 1 spray NA DAILY 12/09/16 Azithromycin [Zithromax] 250 mg PO QD #4 tablet 12/19/16 Ciprofloxacin HCl [Cipro] 500 mg PO BID #14 tablet 12/19/16 Methylprednisolone [Medrol] 4 mg PO DIRECTED #21 tablet 12/19/16 Ondansetron HCl Rapdis [Zofran Odt] 4 mg PO Q8 PRN #10 tab 12/19/16 Consultations this Visit: None Procedures this Visit: None Allergies/Adverse Reactions: Allergies Allergy/AdvReac Type Severity Reaction Status Date / Time cefadroxil hydrate Allergy Verified 12/16/16 09:56 [From Duricef] Cephalosporins Allergy Verified 12/16/16 09:56 clindamycin Allergy Verified 12/16/16 09:56 Quinolones Allergy Verified 12/16/16 09:56 Sulfa (Sulfonamide Allergy Verified 12/16/16 09:56 Antibiotics) [Sulfa(Sulfonamide Antibiotics)] levofloxacin [From Levaquin] AdvReac Nausea/Vomi Verified 12/16/16 09:56 ting PORK AdvReac Intermediate Abdominal Uncoded 12/16/16 09:56 Pain Discharge Summary: Patient was started on IV antibiotics of azithromycin and Levaquin. Patient was started on IV steroid therapy. Patient was continued on high flow nebulization treatment with doing zack. Over the next 24 to 48 hours patient breathing status did improve. Cough became less productive and of clearer plan. Patient was able to ambulate with less dyspnea. Patient is not have any chest pain. Patient did have some hyperglycemia related to the steroid therapy. Patient was started on a sliding scale insulin dose for this. Patient's hypertension remains stable on her home medications. At the time of discharge patient was in stable condition it was felt that she could be managed on an outpatient basis and was discharged in stable condition. - Final Diagnosis (1) Pneumonia Problems: imporved (2) Bronchiectasis Problems: stable (3) Chronic obstructive lung disease Problems: stable (4) Essential hypertension Problems: stable (5) Hyperglycemia Problems: stable, due to steroids
[2016-12-19] MEDS: methylPREDNISolone SOD SUCC 40 MG/ML VIAL IVP SCH (09:30)
[2016-12-19 10:44] VITALS: BP 138/66
[2016-12-19] MEDS ORDERED: LEVOFLOXACIN 500MG/D5W 100ML 100 ML IV ONE ×2 (11:17→11:28)
--- NOTE | 2016-12-19 11:36 | Diagnostic Imaging Report ---
JOEY ROSEN [facility] [address] [facility].[address] [address] Report Submission Date: Dec 19, 2016 7:05:30 AM CDT Patient Study Name: PATRICK MARTIN Date: Dec 19, 2016 6:48:01 AM CDT Modality Type: CR Gender: F Description: CHEST : 36 Institution: [facility] Physician: JOEY ROSEN HISTORY: 76-year-old female with cough, pneumonia, follow up. COMPARISON: Comparison is made with chest x-rays dated 12/16/2016, 12/09/2016, and 10/04/2016. TECHNIQUE: 2 views of the chest were performed. FINDINGS: There are stable bibasilar opacities, left greater than right. This appearance has been stable since chest x-ray dated 10/04/2016. No pneumothorax , new infiltrates, or pulmonary edema. The heart is mildly enlarged. The aortic arch is calcific. IMPRESSION: 1. Stable bibasilar opacities, left greater than right. As these are stable since chest x-ray dated 10/04/2016, this is suggestive of scarring rather than pneumonic infiltrates or effusions. 2. Cardiomegaly and atherosclerotic vascular disease. Electronically signed on Dec 19, 2016 7:05:30 AM CDT by: Krish HORAN
== END 2016-12-19 12:30 | disposition home or self-care (01) | DRG 195 ==
LOC: ED 09:00 → SOUTH 10:37
PROVIDERS: ADMIT Family Medicine; ATTEND Family Medicine
DX: J18.9 Pneumonia, unspecified organism (principal); J47.9 Bronchiectasis, uncomplicated; J44.9 Chronic obstructive pulmonary disease, unspecified; I10 Essential (primary) hypertension; R73.9 Hyperglycemia, unspecified
CPT/HCPCS: 36415; 71020; 80053; 83880; 85025; 87040; 94640; 94760; J0456; J1030; J1956; J2930; J7030; J7050; J7626; 99222; 99232; 99238; 99283; 99284; J2920; S1016

== ENCOUNTER 2016-12-26 11:03 | Outpatient (CLI) | payer MEDICARE, OTHER ==
--- NOTE | 2017-01-01 10:09 | CONSULTATION REPORT ---
PRIMARY CARE PHYSICIAN: Dr. Sincere Stanton CONSULTING PHYSICIAN: Meagan Whittington MD REASON FOR CONSULT: "I am having trouble breathing. I have a long pulmonary history and I have been taken care of at the [facility] and would like to transfer my care here." PROBLEM LIST: 1. Chronic obstructive pulmonary disease (COPD): Oxygen of 2 liters at night and p.r.n. during the day. 2. Bronchiectasis. 3. Hypertension. 4. Obstructive sleep apnea diagnosed in 2003: CPAP prescribed but the patient does not use it. 5. Cerebrovascular accident (CVA). 6. Transient ischemic attack (TIA) in 2011. 7. Chronic sinusitis. 8. Sinus surgeries x3. 9. Bilateral total knee replacements. 10. Status post cholecystectomy. 11. Status post appendectomy. HISTORY OF PRESENT ILLNESS: This is a 76-year-old female who is accompanied to the Pulmonary Clinic with her . Approximately 1 week to 10 days ago, the patient presented to the emergency department at [facility] complaining of shortness of breath and productive sputum. Patient was treated with antibiotics and a prednisone taper and sent home. Approximately 1 week prior to the ED visit, the patient was hospitalized at [facility] for pneumonia and bronchiectasis. At that time, she was treated with levofloxacin, azithromycin , and prednisone. At home recently, she has completed her prednisone taper and she still has a few days left of her ciprofloxacin and azithromycin. She does not feel that she is back at baseline. She is still complaining of shortness of breath and dyspnea on exertion. She does get short of breath walking around her house. She does check her oxygen saturations and states that they are always greater than 90%. She does have home oxygen for a diagnosis of COPD. It is set at 2 liters nasal canula per minute and she uses it all night and then as needed during the day. Patient does complain of esophageal reflux disease and complains of postnasal drip. There has been no hemoptysis. There is no chest pain. No PND. No fever , chills, or sweats. She does notice mild edema. She has gained weight and has a good appetite. She states she always has a cough and usually productive of yellowish sputum. She claims she has a low energy level and that she does have a history of asthma, previous pneumonias, but no past history of DVTs. Patient was diagnosed with asthma during her later childhood and has had a long history of being on prednisone. She claims that she was on prednisone daily for 17 years and then subsequently was able to be weaned off. Now, she only takes prednisone when she is having a COPD/asthma exacerbation. REVIEW OF SYSTEMS: Please see HPI for pertinent review of systems and please refer to the [facility] intake form also. MEDICATIONS: 1. Plavix 75 mg daily. 2. Ranitidine 150 mg b.i.d. 3. Amlodipine 10 mg daily. 4. Furosemide 60 mg daily. 5. Hyoscyamine 125 mg daily. 6. Esomeprazole 40 mg b.i.d. 7. Mucinex 600 mg b.i.d. 8. Lisinopril 10 mg daily. 9. Advair Diskus 500/50: Not sure if patient uses this. 10. Mometasone Nasal [place]. 11. Albuterol nebulizer t.i.d. to q.i.d. 12. Multiple vitamins and health extracts. Please see electronic medical record. ALLERGIES: 1. Duricef. 2. Clindamycin. 3. Sulfa. SOCIAL HISTORY: Patient lives with her and is a life-long nonsmoker. FAMILY HISTORY: Brother with lung disease: Type unknown. PHYSICAL EXAMINATION: Vital Signs: Height: 5 feet 2 inches. Weight: 189 pounds. BP: 138/54, P: 99, R: 20, T: 97.4. Room air oxygen saturation is 96%. General: This is a well-developed obese Cushingoid-appearing female speaking in full sentences. HEENT: Pupils are equal and reactive. Oropharynx is clear. No thrush. No erythema. Neck: Supple. No lymphadenopathy. Trachea is midline. Lungs: Symmetric expansion. Diffuse crackles bilaterally throughout with occasional bilateral wheezing. Cardiac: Rate and rhythm are regular. No rubs or gallops. A left sternal border murmur heard loudest while sitting up. Abdomen: Obese, soft, and nontender. Positive bowel sounds. Extremities: No cyanosis. No clubbing. There is 1+ to 2+ edema. Neurologic: Awake, alert, and oriented x3. Normal gait for her age. Grossly nonfocal. IMAGING: All imaging independently reviewed by me. Chest x-ray on 12-19-16: Cephalization, peribronchial cuffing, cardiomegaly, right-sided atelectasis, blunting of left CPA, and small cysts in lower lobes ( noticed mainly on lateral). ASSESSMENT AND PLAN: PROBLEM #1: Asthma/Chronic obstructive pulmonary disease (COPD). Patient has a long history of breathing difficulties and requiring prednisone for an extremely lengthy duration. Now takes prednisone only for exacerbations ; however, currently, she does not feel like she is at baseline despite finishing a prednisone taper and almost completely her most recent round of antibiotics. PLAN: 1. Obtain all pulmonary outpatient records from the [facility]. 2. Obtain all inpatient records from [facility]. 3. Obtain all PFTs from [facility]. 4. Obtain PFT results from [facility]. 5. Continue nebulizer. 6. Need to assess her use of Advair or other inhalers on the next visit. 7. Continue to use oxygen at night and p.r.n. during the day. PROBLEM #2: Bronchiectasis. Her history is certainly compatible with bronchiectasis with the chronic coughing up of sputum, usually yellow in color. Her lateral chest x-ray is compatible with possible bronchiectasis. PLAN: 1. Obtain all pulmonary outpatient records from the [facility]. 2. Obtain all inpatient records from [facility]. 3. Obtain all chest CT scans on CD from the [facility]. 4. Obtain chest CT scan PE protocol with high resolution cuts to assess for the possibility of chronic pulmonary embolism and bronchiectasis. PROBLEM #3: Obstructive sleep apnea. Per patient's history, she definitely has GASTON, however, did not like the CPAP machine and did not use it and does not have a CPAP machine at home now. PLAN: 1. Obtain polysomnography (PSG) results from [facility] done approximately in 2003. 2. Will need a repeat sleep study in the near future. 3. Will need to obtain previous echo results. PROBLEM #4: Pulmonary preventative disease. Patient has had a flu shot for this year. PLAN: All issues explained to the patient and her . Return to clinic in 1 month. cc: Dr. Sincere HORAN
== END 2016-12-26 11:04 ==
LOC: PULMONARY 11:03
PROVIDERS: ATTEND Internal Medicine Pulmonary Disease
DX: J44.9 Chronic obstructive pulmonary disease, unspecified (principal); J47.9 Bronchiectasis, uncomplicated; G47.30 Sleep apnea, unspecified
CPT/HCPCS: 99214; G0463

== ENCOUNTER 2016-12-29 12:57 | Outpatient (CLI) | payer MEDICARE, OTHER ==
--- NOTE | 2016-12-29 15:02 | Diagnostic Imaging Report ---
HAMILTON PANDEY [facility] [address] [facility] [address] [place], [place]. [address] Report Submission Date: Dec 29, 2016 2:19:54 PM HEAD OF ICT Patient Study Name: PATRICK MARTIN Date: Dec 29, 2016 1:25:21 PM HEAD OF ICT Modality Type: CT\SR Gender: F Description: CT CHEST W & W/O CONTR : 36 Institution: [facility] Physician: HAMILTON PANDEY Examination: CT chest History: Persistent pneumonia Comparison exams: Plain film chest dated 19 December 2016 Technique: CT chest without and with contrast protocol. High resolution. Findings: High-resolution imaging demonstrates significant bronchiectatic changes at the bases bilaterally. Bronchial wall thickening and inflammation. Few of the enlarged bronchi demonstrate air fluid levels. Large and basilar bulla formation. Mild posterior pleural thickening. No effusion. Apical lung vela without evidence for consolidative process, spiculated lesion or suspicious nodular density. Anterior mediastinum and martha are without gross mass or pathologic adenopathy. Thoracic aorta demonstrates peripheral atherosclerotic disease. No aneurysm. Mild tortuosity at the diaphragm. Cardiac silhouette not enlarged. No pericardial effusion. Lower neck structures and upper abdominal organs without gross abnormality. Osseous structures demonstrate degenerative changes. Hiatal hernia. Impression: Significant bronchiectatic changes involving the bases bilaterally. Associated parenchymal scarring and pleural thickening. Correlation with any previous CT chest exams recommended if available. Hiatal hernia. Electronically signed on Dec 29, 2016 2:19:54 PM HEAD OF ICT by: Bautista HORAN
== END 2016-12-29 13:00 ==
LOC: RAD 12:57
PROVIDERS: ATTEND Internal Medicine Pulmonary Disease
DX: R07.9 Chest pain, unspecified (principal); J47.9 Bronchiectasis, uncomplicated
CPT/HCPCS: 71270; Q9966

== ENCOUNTER 2017-01-30 11:25 | Outpatient (CLI) | payer MEDICARE, OTHER ==
--- NOTE | 2017-02-11 10:15 | OP Clinic Progress Note ---
PRIMARY CARE PROVIDER: Dr. Sincere Stanton CHIEF COMPLAINT: "My breathing is slightly better." Patient returns for clinic follow up with her . PROBLEM LIST: 1. Chronic obstructive pulmonary disease: Home oxygen at 2 liters per nasal cannula at night and p.r.n. during the day. 2. Bronchiectasis. 3. Steroid-induced hyperglycemia. 4. Moderate aortic stenosis, valve area 1.1 cm squared via echo on 04/01/16. 5. Obstructive sleep apnea diagnosed in 2003: CPAP prescribed but patient does not use it. 6. Cerebrovascular accident (CVA). 7. Transient ischemic attack in 2011: On clopidogrel. 8. Chronic sinusitis. 9. Sinus surgeries x3. 10. Bilateral total knee replacements. 11. Status post cholecystectomy. 12. Status appendectomy. HISTORY OF PRESENT ILLNESS: This is a 76-year-old female who returns for clinic follow up with her . She states that her shortness of breath is at baseline and that her cough is at baseline. She still has some productive sputum that is slightly yellow in color but states that it is an improvement over the usual dark color of her sputum. She continues to use her oxygen at 2 liters at night and as necessary during the day. She has not used any prednisone recently. She continues to use her Advair Diskus 500/50 b.i.d. and albuterol nebulizer as needed. She has tried Spiriva in the past and that did not help her. [facility]. Some of the highlights include: 1. Sleep study on 01/10/04: An AHI of 28.4 per hour, lowest O2 saturation at 80%. 2. Sleep study with CPAP titration on 02/09/04: Optimal CPAP found to be 10 cm of H20. 3. Repeat sleep study with CPAP titration on 09/24/05: Optimum CPAP of 12 cm of H20. 4. Chest CT scan on 07/18/14: Resolved bilateral upper lobe pneumonias, severe bilateral lower lobe bronchiectasis. 5. Chest CT on 03/09/15: Severe bronchiectasis as previously noted along with now panlobular emphysema at the bases. 6. Pulmonary function testing in May 2014: FEV1 of 56% of predicted; FEV1/ FVC of 72% of predicted; RV is 123% of predicted. Air trapping noted. 7. Repeat PFTs in December 2014 is adding a slight restriction. Please note: These are all from reports in people's clinical notes. There were no actual PFT studies for me to exam. 8. Echocardiogram on 04/01/16: Ejection fraction (EF) of 60%; RVSP of 40 mmHg ; moderate aortic stenosis, valve area of 1.1 cm squared. 9. Barium swallow, date unknown: Transient penetration of thin liquid. Gastroesophageal reflux disease with a small hiatal hernia and slowed peristalsis. 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 According to the records, she also had a hypersensitivity panel, immunoglobin levels, aspergillus titers, fungal cultures, Alpha 1 antitrypsin, and sweat chloride test. All of these evaluations were negative. I specifically went through these results with the patient and her . I complimented the [facility]. I thought they did a mary job working her up and taking care of her and I wanted to be absolutely sure she did not want to return to the [facility]; and at this point in time, they would prefer to have their care through [facility]. MEDICATIONS: 1. Clopidogrel 75 mg daily. 2. Ranitidine 150 mg b.i.d. 3. Amlodipine 10 mg daily. 4. Furosemide 60 mg daily. 5. Hyoscyamine 125 mg daily. 6. Esomeprazole 40 mg b.i.d. 7. Mucinex 600 mg b.i.d. 8. Lisinopril 10 mg daily. 9. Advair Diskus 500/50 b.i.d. 10. Mometasone nasal spray. 11. Albuterol nebulizer t.i.d. to q.i.d. 12. Multiple vitamins and health extracts. Please see electronic medical record. ALLERGIES: 1. Duricef. 2. Clindamycin. 3. Sulfa. PHYSICAL EXAMINATION: VITAL SIGNS: BP: 130/57, P: 99, R: 24, T: 97.5, Oxygen saturation was 94% on room air. Weight: 186 pounds. BMI is 34: Class 1 obesity. GENERAL: This is a well-developed, obese, cushingoid-appearing female speaking in full sentences in no acute distress. Oropharynx: Clear. No thrush. Neck: Supple. No adenopathy. Lungs: Symmetric expansion. Occasional crackles bilaterally. Cardiac: Rate and rhythm are regular. No rubs or gallops. A left sternal border murmur heard loudest while sitting up. Abdomen: Obese, soft, and nontender. Extremities: 1+ to 2+ edema. No cyanosis or clubbing. Neurologic: Awake, alert, and oriented x3. Grossly nonfocal. IMAGING: All imaging independently reviewed by me. Chest CT scan on December 29, 2016: Severe bronchiectasis in lower lobes. Severe emphysema/bullous disease, right lower lobe greater than left lower lobe. ASSESSMENT AND PLAN: PROBLEM #1: Asthma/Chronic obstructive pulmonary disease (COPD). Patient seems to be at baseline on this visit. PLAN: 1. Continue Advair Diskus 500/50 b.i.d. 2. Continue albuterol nebulizer p.r.n. 3. Continue use of oxygen at 2 liters at night and p.r.n. during the day. PROBLEM #2: Bronchiectasis. This also appears to be slightly improved this visit. Her CT scan is extremely abnormal but consistent with the past CT scans done at the [facility]. Patient states that her sputum production is slightly less with a slight improvement in the color. PLAN: 1. Augmentin 875 mg p.o. for 14 days if sputum production increases and/or the color of her sputum gets darker. 2. Patient will call me to notify me if she is taking the Augmentin. PROBLEM #3: Obstructive sleep apnea. We have discussed this again. Patient admits to sleep apnea and at this point in time, she is not interested in using a CPAP nor repeating a sleep study. PLAN: Return to clinic in 3 months. cc: Dr. Sincere HORAN
== END 2017-01-30 11:26 ==
LOC: PULMONARY 11:25
PROVIDERS: ATTEND Internal Medicine Pulmonary Disease
DX: J44.9 Chronic obstructive pulmonary disease, unspecified (principal); J47.9 Bronchiectasis, uncomplicated; G47.33 Obstructive sleep apnea (adult) (pediatric)
CPT/HCPCS: 99214; G0463

== ENCOUNTER 2017-02-10 11:50 | Emergency (ER) | payer MEDICARE, OTHER ==
--- NOTE | 2017-02-10 12:52 | ED Physician Documentation ---
General Adult - HISTORIAN Historian: patient - HPI Stated Complaint: L sided head pain Chief Complaint: General Adult Additional Information: Patient states that she had a sudden onset of roaring sensation in the left ear that started about 44 hours ago. It has been constant with no change since then. Nothing that she has tried has modified the roaring sensation one way or another. She normally does not have any hearing in the ear due to recurrent ear infections and surgery to try to help with her hearing. She denies any dizziness or gait problems. She has not had any previous similar episodes. Onset: days ago (Thursday) Timing: still present Severity: moderate Further Comments: no - ROS CONST: no problems. denies: fever, chills - PAST HX Past History: COPD (pulomnary fibrosis) Other History: none Immunizations: other (refuses) Allergies/Adverse Reactions: Allergies Allergy/AdvReac Type Severity Reaction Status Date / Time cefadroxil hydrate Allergy Verified 02/10/17 12:06 [From Duricef] Cephalosporins Allergy Verified 02/10/17 12:06 clindamycin Allergy Verified 02/10/17 12:06 Quinolones Allergy Verified 02/10/17 12:06 Sulfa (Sulfonamide Allergy Verified 02/10/17 12:06 Antibiotics) [Sulfa(Sulfonamide Antibiotics)] levofloxacin [From Levaquin] AdvReac Nausea/Vomi Verified 02/10/17 12:06 ting PORK AdvReac Intermediate Abdominal Uncoded 02/10/17 12:06 Pain Home Medications: Ambulatory Orders Medication Instructions Recorded Fluticasone/Salmeterol [Advair 1 puff IN DAILY 12/09/16 500-50 Diskus] Hyoscyamine Sulfate 0.125 mg PO Q6 PRN 12/09/16 Mometasone Furoate [Nasonex] 1 spray NA DAILY 12/09/16 Ciprofloxacin HCl [Cipro] 500 mg PO BID #14 tablet 12/19/16 Methylprednisolone [Medrol] 4 mg PO DIRECTED #21 tablet 12/19/16 Ondansetron HCl Rapdis [Zofran Odt] 4 mg PO Q8 PRN #10 tab 12/19/16 Prednisone 10 mg PO DIRECTED #36 tablet 02/10/17 - SOCIAL HX Smoking History: non-smoker Alcohol Use: none Drug Use: none - FAMILY HX Family History: No - VITAL SIGNS Vital Signs: Vital Signs Temp Pulse Resp BP Pulse Ox 98.5 F 85 18 121/68 95 02/10/17 11:55 02/10/17 11:55 02/10/17 11:55 02/10/17 11:55 02/10/17 11:55 - REVIEWED ASSESSMENTS Nursing Assessment Reviewed: Yes Vitals Reviewed: Yes General Adult Physical Exam - PHYSICAL EXAM GENERAL APPEARANCE: no distress EENT: ENT inspection normal, pharynx normal, no signs of dehydration, other (no hearing in the left ear at baseline. ) NECK: normal inspection, supple RESPIRATORY: no resp distress, chest non-tender, rhonchi (few course rhonchi) CVS: reg rate & rhythm, heart sounds normal, equal pulses SKIN: warm/dry NEURO: oriented X3, CN's nml as tested, motor nml, sensation nml, mood/affect nml Discharge Clincal Impression: Tinnitus of left ear Prescriptions: Prednisone 10 mg PO DIRECTED #36 tablet Referrals: Sincere Stanton MD [Primary Care Provider] - 2 Days Additional Instructions: Start taking prednisone as directed tomorrow. Call me tomorrow about your status. Condition: Stable Disposition: HOME, SELF-CARE Decision to Admit: NO (t) Decision Time: 13:03
[2017-02-10] MEDS: methylPREDNISolone ACETATE 80 MG/ML VIAL IM SCH (12:54)
[2017-02-10] MEDS ORDERED: methylPREDNISolone ACETATE 80 MG/ML VIAL IM ONE (13:06)
[2017-02-10] MEDS: DEXAMETHASONE SOD PHOS 4 MG/ML VIAL IM ONE (13:13)
[2017-02-10 13:17] VITALS: BP 146/97
== END 2017-02-10 13:07 | disposition home or self-care (01) ==
LOC: ED 11:50
DX: H93.12 Tinnitus, left ear (principal)
CPT/HCPCS: J1040; J1100; 96372; 99283

== ENCOUNTER 2017-05-15 12:39 | Outpatient (CLI) | payer MEDICARE, OTHER ==
[2017-03-12 12:32] VITALS: BP 107/48
--- NOTE | 2017-05-28 12:20 | OP Clinic Progress Note ---
PRIMARY CARE PROVIDER: Dr. Sincere Stanton CHIEF COMPLAINT: "I was started on Augmentin for my cough and it is slightly better." SIGNIFICANT PROBLEM LIST: 1. Chronic obstructive pulmonary disease: Home oxygen at 2 liters per nasal cannula at night and p.r.n. during the day. 2. Bronchiectasis. 3. Steroid-induced hyperglycemia. 4. Moderate aortic stenosis: Valve area is 1.1 cm squared via echo on April 01, 2016. 5. Obstructive sleep apnea: Diagnosed in 2003, CPAP prescribed but the patient does not use it. 6. Cerebrovascular accident. 7. Transient ischemic attack in 2011: On clopidogrel. 8. Chronic sinusitis. 9. Sinus surgery x3. 10. Bilateral total knee replacements. 11. Status post cholecystectomy. 12. Status post appendectomy. HISTORY OF PRESENT ILLNESS: This is a 77-year-old female who returns to the clinic with her . On March 16, 2017, the patient had symptoms consistent with pneumonia and was hospitalized at [facility] for 1 night. She was given the diagnosis of a respiratory illness and treated with Augmentin and a quick prednisone taper. She states that she did relatively well until May 13, 2017 , when she saw Dr. Stanton and was complaining of a cough productive of sputum. She was placed on Augmentin for a 7-day course. She currently states she feels somewhat better. She is also complaining of nasal drainage. There is no fever, chills, or sweats. No chest pain. No PND. No hemoptysis. ALLERGIES: 1. Duricef. 2. Clindamycin. 3. Sulfa. MEDICATIONS: 1. Clopidogrel 75 mg daily. 2. Ranitidine 150 mg b.i.d. 3. Amlodipine 10 mg daily. 4. Furosemide 40 mg in the a.m. and 40 mg in the p.m. (This has been recently increased per Dr. Stanton). 5. Hyoscyamine 125 mg daily. 6. Esomeprazole 40 mg b.i.d. 7. Mucinex 600 mg b.i.d. 8. Lisinopril 10 mg daily. 9. Advair 500/50 mg 1 inhalation b.i.d. 10. Mometasone nasal spray. 11. Albuterol nebulizer q.i.d. 12. Augmentin 875 mg daily for 7 days. 13. Hibernia 3, 500 mg daily. 14. Super B complex 1000 mg daily. 15. Vitamin D3, 2000 units daily. 16. Cetirizine 10 mg daily. 17. Multiple vitamins and health extracts. Please see electronic medical record. PHYSICAL EXAMINATION: VITAL SIGNS: BP: 122/56, P: 99, R: 22, T: 97.5, oxygen saturation was 95% on room air. Height: 5 feet 2 inches. Weight: 188 pounds. BMI: 34.4, Class 1 obesity. GENERAL: This is a well-developed obese female in no acute distress speaking in full sentences. HEENT: Pupils are equal and reactive to light. Oropharynx is clear. No thrush. No erythema. NECK: Supple. No JVD. LUNGS: Bilateral wheezes. Bilateral basilar crackles. CARDIAC: Rate and rhythm are regular. No murmur, rubs, or gallops. ABDOMEN: Obese, soft, and nontender. EXTREMITIES: There is 2+ edema. No cyanosis or clubbing. NEUROLOGIC: Awake and alert x3. Grossly nonfocal neurologic exam. IMAGING: All imaging independently reviewed by me. 1. Chest CT scan on December 29, 2016. Severe bronchiectasis, particularly at the bases. 2. Chest x-ray on March 11, 2017. Please note, I am unable to visualize this x-ray due to issues with the program. The report states chronic bibasilar infiltrates. LABORATORIES: 1. CBC on March 11, 2017. Hemoglobin 12, hematocrit 37, white blood cell count 9.4, platelets 506,000 platelets. 2. Chemistry on March 11, 2017. Sodium 142, potassium 4.4, chloride 101, bicarbonate 27, BUN 21, creatinine 1, glucose 104. 3. Liver function testing on March 11, 2017. All within normal limits. 4. Viral panel on March 11, 2017. Negative. ASSESSMENT AND PLAN: PROBLEM #1: Asthma/Chronic obstructive pulmonary disease. Patient has had a mild exacerbation and is currently on Augmentin for 1 week. Due to her extensive bronchiectasis, I would like to lengthen the therapy. PLAN: 1. Augmentin for a total of 2 weeks. 2. Continue Advair Diskus 500/50 b.i.d. 3. Continue albuterol nebulizer p.r.n. 4. Continue use of oxygen 2 liters per nasal cannula at night and p.r.n. PROBLEM #2: Bronchiectasis. PLAN: 1. Augmentin 875 mg b.i.d. for a total course of 14 days. 2. Prescription for Augmentin for patient to keep at home and instructed to start if she is having an exacerbation. PROBLEM #2: Chronic sinusitis. PLAN: 1. Ipratropium nasal spray, 2 sprays t.i.d. to q.i.d. 2. Return to clinic in 3 months. cc: Sincere HORAN
== END 2017-05-15 12:40 ==
LOC: PULMONARY 12:39
PROVIDERS: ATTEND Internal Medicine Pulmonary Disease
DX: J44.9 Chronic obstructive pulmonary disease, unspecified (principal); J47.9 Bronchiectasis, uncomplicated; J32.9 Chronic sinusitis, unspecified; R73.9 Hyperglycemia, unspecified; I35.0 Nonrheumatic aortic (valve) stenosis; G47.30 Sleep apnea, unspecified; I63.9 Cerebral infarction, unspecified
CPT/HCPCS: 99214; G0463

== ENCOUNTER 2017-08-14 08:34 | Emergency (ER) | payer MEDICARE, OTHER ==
--- NOTE | 2017-08-14 08:47 | ED Physician Documentation ---
Dyspnea - HISTORIAN Historian: patient, spouse - HPI Stated Complaint: shortness of breath Chief Complaint: Dyspnea Onset: days ago (1) Duration: continues in ED Initiating Event: other (History of pneumoina ) Severity: moderate Exacerbated By: change in position, exertion Associated Symptoms: chills, fever, productive cough Further Comments: yes (reports with history of pneumoina and shortness of air. She does wear her oxygen at home at night but this am with any movement she noted increased shortness of air. She has been wearing her home oxygen this am. She did try a breathing treatment at home before coming into the ER. Denies a fever but is noting chills and nausea (she reports a sure sign for her to have pneumoina in the past). She denies any sick contacts. She has a productive cough. She has had some episodes of vomiting this am (phglem). No rash. Mild ankle swelling (this is not new).) - ROS CONST: weakness EYES/ENT: nasal drainage, nasal congestion GI/: vomiting, nausea MS/SKIN/LYMPH: denies: rash - PAST HX Lung Disease: COPD, pneumonia Cardiac Disease: CHF PE Risk Factors: hypertension Surgeries/Procedures: none Other History: none Immunizations: UTD Allergies/Adverse Reactions: Allergies Allergy/AdvReac Type Severity Reaction Status Date / Time cefadroxil hydrate Allergy Verified 08/14/17 09:44 [From Duricef] Cephalosporins Allergy Verified 08/14/17 09:44 clindamycin Allergy Verified 08/14/17 09:44 Sulfa (Sulfonamide Allergy Verified 08/14/17 09:44 Antibiotics) [Sulfa(Sulfonamide Antibiotics)] levofloxacin [From Levaquin] AdvReac Nausea/Vomi Verified 08/14/17 09:44 ting Quinolones AdvReac Nausea/Vomi Verified 08/14/17 09:44 ting PORK AdvReac Intermediate Abdominal Uncoded 08/14/17 09:44 Pain Home Medications: Ambulatory Orders Medication Instructions Recorded Albuterol Sulfate [Ventolin HFN] 1 puff IH TID 08/14/17 Clopidogrel Bisulfate [Plavix] 75 mg PO D 08/14/17 Esomeprazole Magnesium [Nexium] 40 mg PO BID 08/14/17 Fluticasone/Salmeterol [Advair 1 puff IH PRN PRN 08/14/17 500-50 Diskus] Furosemide [Lasix] 60 mg PO D 08/14/17 Furosemide [Lasix] 60 mg PO D 08/14/17 - SOCIAL HX Smoking History: non-smoker Alcohol Use: none Drug Use: none - FAMILY HX Family History: none - VITAL SIGNS Vital Signs: Vital Signs Temp Pulse Resp BP Pulse Ox 108/47 03/12/17 10:00 - REVIEWED ASSESSMENTS Nursing Assessment Reviewed: Yes Vitals Reviewed: Yes Progress - Progress Progress: 1015: tolerating well. No further complaints DG 1040: Discussed results and plan. Dr Whittington notified and she will only see pt if she can come to the clinic. She is aware and agreeable to seeing dr in outpt clinic. DG ED Results Lab/Radiology - Radiology Radiology Impressions: Examination: PA and lateral chest. History: Evaluate lung vela. CXR, COUGH AND SOA WORSENING TODAY, PT STATES SHE ALWAYS HAS A COUGH, HX OF PNEUMONIA (Hx) Comparison exam: 19 December 2016 Findings: PA lateral chest demonstrate a normal cardiac and mediastinal silhouette. Vascular calcifications involving aortic arch. Continued bibasilar parenchymal interstitial fullness with blunting of the costophrenic margins, left greater than right. Articular degenerative changes. Impression: Stable examination. Continued basilar interstitial fullness and pleural thickening. Electronically signed on Aug 14, 2017 9:58:11 AM CDT by: Bautista Salas Dyspnea Physical Exam - EXAM General Appearance: alert, mild distress EENT: eye inspection normal, ENT inspection normal Respiratory: respiratory distress (mild increased with speaking ), wheezes, rhonchi CVS: reg. rate & rhythm, no murmur Abdomen: non-tender, no distention Skin: color nml, no rash Extremities: non-tender, normal range of motion, no evidence of injury, edema (1 + bilateral lower leg (pedal) ) Neuro/Psych: oriented x3, CN's nml as tested, motor nml, sensation nml, mood/ affect nml Discharge Clincal Impression: Chronic obstructive lung disease Referrals: Sincere Stanton MD [Primary Care Provider] - 2 Days Comments: 1. See Pulm as scheduled 2. Azithromycin 250 mg - 500 mg today and 250 days 2-5 3. Medrol Dose pack - Start tomorrow 08.15.2017 - take as directed 4. Wear home oxygen 5. See PCP in 2-4 days 6. Return to ER for any concerns Condition: Stable Disposition: 01 HOME, SELF-CARE Decision to Admit: NO Date of Decison to Admit: 08/14/17 Decision Time: 10:53
[2017-08-14] MEDS ORDERED: IPRATROPIUM/ALBUTEROL SULFATE 3 ML AMPUL.NEB NEB ONE (09:00)
[2017-08-14 10:00] LABS: BASOPHILS % 0.4 (0.0-1.5); EOSINOPHILS % 2.9 % (0.0-6.8); MEAN CORPUSCULAR HEMOGLOBIN 30.4 pg (28.0-34.0); MEAN CORPUSCULAR VOLUME 96.7 fl (80.0-100.0); MONOCYTES % 2.5 % (0.0-11.0); NEUTROPHILS # 13.9 # k/uL (1.4-7.7)
[2017-08-14 10:13] LABS: eGFR (African) > 60; eGFR (Non-African) > 60
[2017-08-14] MEDS ORDERED: methylPREDNISolone SOD SUCC 125 MG/2 ML VIAL IVP ONE (10:19)
[2017-08-14 10:57] VITALS: BP 150/60
--- NOTE | 2017-08-14 18:43 | Diagnostic Imaging Report ---
LAUREN STANTON [facility] [address] [facility] [address] [place], [place]. [address] Report Submission Date: Aug 14, 2017 9:58:11 AM CDT Patient Study Name: PATRICK MARTIN Date: Aug 14, 2017 9:28:31 AM CDT Modality Type: DX Gender: F Description: CHEST : 36 Institution: [facility] Physician: LAUREN STANTON Examination: PA and lateral chest. History: Evaluate lung vela. CXR, COUGH AND SOA WORSENING TODAY, PT STATES SHE ALWAYS HAS A COUGH, HX OF PNEUMONIA (Hx) Comparison exam: 19 December 2016 Findings: PA lateral chest demonstrate a normal cardiac and mediastinal silhouette. Vascular calcifications involving aortic arch. Continued bibasilar parenchymal interstitial fullness with blunting of the costophrenic margins, left greater than right. Articular degenerative changes. Impression: Stable examination. Continued basilar interstitial fullness and pleural thickening. Electronically signed on Aug 14, 2017 9:58:11 AM CDT by: Bautista HORAN
== END 2017-08-14 10:55 | disposition home or self-care (01) ==
LOC: ED 08:34
DX: J44.9 Chronic obstructive pulmonary disease, unspecified (principal)
CPT/HCPCS: 71046; 80053; 83880; 85025; 87040; J2930; 94640; 96374; 99284; S1016

== ENCOUNTER 2017-08-14 11:10 | Outpatient (CLI) | payer MEDICARE, OTHER ==
[2017-08-14 10:57] VITALS: BP 150/60
--- NOTE | 2017-08-27 10:55 | OP Clinic Progress Note ---
PRIMARY CARE PROVIDER: Dr. Sincere Stanton CHIEF COMPLAINT: "It feels like I have pneumonia." SIGNIFICANT PROBLEM LIST: 1. Chronic obstructive pulmonary disease: Home oxygen at 2 liters per nasal cannula at night and p.r.n. during the day. 2. Bronchiectasis. 3. Steroid-induced hyperglycemia. 4. Moderate aortic stenosis: Valve area of 1.1 cm squared via echo on October 30, 2016. 5. Obstructive sleep apnea: Diagnosed in 2003. CPAP prescribed but patient does not use it. 6. Cerebrovascular accident. 7. Transient ischemic attack in 2011: On clopidogrel. 8. Chronic sinusitis. 9. Sinus surgery x3. 10. Bilateral total knee replacements. 11. Status post cholecystectomy. 12. Status post appendectomy. HISTORY OF PRESENT ILLNESS: This is a 77-year-old female accompanied by her to follow up Pulmonary Clinic appointment. Early this morning, the patient stated that she had low- grade fevers, some chills, dry cough, and nausea. She states that whenever she gets nauseated it feels like she has pneumonia. She went to [facility] Emergency Department and they treated her with a DuoNeb nebulizer and gave her 125 mg of Solu-Medrol IV push x1. She was given the diagnosis of an acute COPD exacerbation. She was asked to keep her Pulmonary appointment as scheduled this morning, azithromycin 500 mg today followed by 250 mg days 2 through 5, to start a Medrol Dosepak, and to see her PCP within 2 to 4 days. In clinic, the patient reiterated that she felt like she had pneumonia mainly due to the feeling of nausea which she states only happens when she has pneumonia. She stated again that she did have low-grade fevers and a dry cough. She uses her home oxygen at 2 liters at night and p.r.n. She states that her oxygen saturations have been approximately 94%. Approximately a month- and-a-half ago, she took Augmentin for 2 weeks for a COPD exacerbation and stated that she felt better. Of note, the patient states she is taking Lasix 40 mg a day. When I questioned her further, I knew she was supposed to be taking [address] Stanton had prescribed 40 mg b.i.d. Patient states she never did that and has continued to take Lasix 40 mg daily. ALLERGIES: 1. Duricef. 2. Clindamycin. 3. Sulfa. MEDICATIONS: 1. Clopidogrel 75 mg daily. 2. Ranitidine 150 mg b.i.d. 3. Amlodipine 10 mg daily. 4. Furosemide 40 mg daily (Should be 40 mg b.i.d.) 5. Hyoscyamine 125 mg daily. 6. Esomeprazole 40 mg b.i.d. 7. Mucinex 600 mg b.i.d. 8. Lisinopril 10 mg daily. 9. Advair 500/50 mg 1 inhalation b.i.d. 10. Mometasone Nasal Gladys p.r.n. 11. Albuterol nebulizer t.i.d. to q.i.d. 12. Cod liver oil 1000 mg daily. 13. Multivitamin 1 tablet daily. 14. Vitamin C 1000 mg daily. 15. [place]-3, 500 mg daily. 16. Super B Complex 1000 mg daily. 17. Vitamin D3, 2000 mg daily. 18. Cetirizine 10 mg daily. 19. Ginkgo 60 mg daily. 20. Cranberry 40 mg daily. 21. Garlic Extract 600 mg 2 capsules daily. 22. Elderberry 800 mg daily. 23. Echinacea Goldenseal 1000 mg daily. 24. Tylenol 500 mg 2 tablets at bedtime. 25. Benadryl 25 mg at bedtime. 26. Ipratropium 2 nasal sprays p.r.n. PHYSICAL EXAMINATION: VITAL SIGNS: BP: 128/50, P: 113, R: 20, T: 98.7, oxygen saturation is 93% on 2 liters per nasal cannula. Weight: 187 pounds. General: This is a well-developed obese female who appears slightly ill but talking in full sentences. HEENT: Pupils are equal and reactive to light. Oropharynx: Clear. No thrush. No erythema. Neck: Supple. Lungs: Bilateral crackles and rhonchi. No wheezing. Cardiac: Tachycardia. Rate and rhythm are regular. No murmur, rubs, or gallops. Abdomen: Obese. Soft and nontender. Extremities: There is 2+ edema. No cyanosis or clubbing. Neurologic: Alert and oriented x3. Grossly nonfocal. IMAGING: All imaging independently reviewed by me personally. 1. Chest x-ray on August 14, 2017. Cephalization. Peribronchial cuffing. Small left effusion. Giana B lines present. Slight lower lobe infiltrate. Blunting of the right CP angle (slightly worse compared to December 19, 2016). Please note: The system has lost her more recent chest x-ray done on March 11, 2017, and therefore, I am unable to view it. LABORATORIES: 1. CBC on August 14, 2017. White blood cell count 16.45, hemoglobin 10, hematocrit 33, platelet count 395,000. 2. Chemistry on August 14, 2017. Sodium 140, potassium 4.0, chloride 107, bicarbonate 24, BUN 13, creatinine 0.6, glucose 110. 3. LFTs and pro-BNP were all within normal limits. ASSESSMENT AND PLAN: PROBLEM #1: Acute exacerbation of chronic obstructive pulmonary disease (COPD ). PLAN: 1. Augmentin 875 mg x14 days. 2. Patient instructed not to take the azithromycin prescribed by the ED. 3. Take Medrol Dosepak as prescribed by the ED. 4. Continue Advair Diskus 500/50 b.i.d. 5. Continue Albuterol nebulizer q.i.d. and p.r.n. 6. Continue to use oxygen at 2 liters per nasal cannula. 7. Please see PCP in 2 to 3 days. PROBLEM #2: Bronchiectasis. PLAN: Augmentin 875 mg b.i.d. for 2 weeks. PROBLEM #3: Acute congestive heart failure (CHF)/volume overload. Patient has not been taking suggestive dose of Lasix which Dr. Stanton recommended at 40 mg b.i.d. She has been taking only 40 mg daily. She clearly has a sign of volume overload on physical exam and chest x-ray. PLAN: 1. Take Lasix 80 mg p.o. today x1. 2. In the a.m., start Lasix 60 mg daily. 3. See primary care provider in 2 to 3 days. PROBLEM #4: Chronic sinusitis. PLAN: 1. Continue ipratropium nasal spray. 2. Take Augmentin antibiotic as prescribed. 3. Return to clinic in 2 weeks. Prior to clinic visit, will check CBC and chemistries. Also, will perform a chest x-ray. cc: Dr. Sincere Stanton [facility]OSPITALAle
== END 2017-08-14 13:48 ==
LOC: PULMONARY 11:10
PROVIDERS: ATTEND Internal Medicine Pulmonary Disease
DX: J44.9 Chronic obstructive pulmonary disease, unspecified (principal)
CPT/HCPCS: 99214; G0463

== ENCOUNTER 2017-09-01 13:20 | Outpatient (CLI) | payer MEDICARE, OTHER ==
[2017-09-01 14:08] LABS: eGFR (African) > 60; eGFR (Non-African) > 60
[2017-09-01 14:09] LABS: BASOPHILS % 0.6 (0.0-1.5); MEAN CORPUSCULAR HEMOGLOBIN 30.5 pg (28.0-34.0); MEAN CORPUSCULAR VOLUME 98.7 fl (80.0-100.0); MONOCYTES % 2.6 % (0.0-11.0); NEUTROPHILS # 6.8 # k/uL (1.4-7.7)
--- NOTE | 2017-09-01 14:09 | Diagnostic Imaging Report ---
HAMILTON PANDEY [facility] [address] [facility] [address] [address] Report Submission Date: Sep 01, 2017 1:50:03 PM CDT Patient Study Name: PATRICK MARTIN Date: Sep 25, 2014 10:58:57 AM CDT Modality Type: DX Gender: F Description: CHEST : 36 Institution: [facility] Physician: HAMILTON PANDEY PA and lateral chest History: Short of breath PA and lateral chest dated September 01, 2017 as compared to August 14, 2017 The cardiomediastinal silhouette is unchanged in size and configuration. Streaky bibasilar densities are present and there is mild blunting of the costophrenic angles bilaterally. These findings are unchanged and consistent with areas of chronic scarring and/or atelectasis and chronic pleural thickening. No new focus of infiltrate is noted. Impression: No change compared to August 14, 2017. Chronic findings at both lung bases as described. Electronically signed on Sep 01, 2017 1:50:03 PM CDT by: Carlee HORAN
== END 2017-09-01 13:21 ==
LOC: RAD 13:20
PROVIDERS: ATTEND Internal Medicine Pulmonary Disease
DX: J47.9 Bronchiectasis, uncomplicated (principal); I50.9 Heart failure, unspecified
CPT/HCPCS: 36415; 71046; 80053; 85025

== ENCOUNTER 2017-09-04 10:46 | Outpatient (CLI) | payer MEDICARE, OTHER ==
--- NOTE | 2017-09-14 16:20 | OP Clinic Progress Note ---
PRIMARY CARE PROVIDER: Dr. Sincere Stanton CHIEF COMPLAINT: "I am here for follow up and feeling better." SIGNIFICANT PROBLEM LIST: 1. Chronic obstructive pulmonary disease. Home oxygen at 2 liters per nasal cannula at night and p.r.n. during the day. 2. Bronchiectasis. 3. Volume overload. 4. Steroid-induced hyperglycemia. 5. Moderate aortic stenosis, valve area is 1.1 cm squared via an echo on October 30, 2016. 6. Obstructive sleep apnea: Diagnosed in 2003. CPAP prescribed but patient does not use it. 7. Cerebrovascular accident. 8. Transient ischemic attack (TIA) in 2011: On clopidogrel. 9. Chronic sinusitis. 10. Sinus surgery x3. 11. Bilateral total knee replacements. 12. Status post cholecystectomy. 13. Status post appendectomy. HISTORY OF PRESENT ILLNESS: Patient returns with her for follow up. I saw Mrs. Ahuja 2 weeks ago. She felt like she was getting pneumonia. I prescribed Augmentin and increased her Lasix dose. Patient states that she complied with all of my instructions and she is feeling much better. She still has a baseline cough with yellowish sputum, which is also her baseline. Overall, patient feels she is back to her baseline and her concurs. Patient has been taking Lasix 60 mg p.o. daily since our last visit. ALLERGIES: 1. Duricef. 2. Clindamycin. 3. Sulfa. MEDICATIONS: 1. Clopidogrel 75 mg daily. 2. Ranitidine 150 mg daily. 3. Amlodipine 10 mg daily. 4. Furosemide 60 mg daily. 5. Hyoscyamine 125 mg daily. 6. Esomeprazole 40 mg b.i.d. 7. Mucinex 600 mg b.i.d. 8. Lisinopril 10 mg daily. 9. Advair 500/50 mcg 1 inhalation b.i.d. 10. Mometasone nasal spray p.r.n. 11. Albuterol nebulizer t.i.d. to q.i.d. 12. Multivitamin 1 tablet daily. 13. [place] 3, 500 mg daily. 14. Cetirizine 10 mg daily. 15. Ginkgo 60 mg daily. 16. Cranberry 40 mg daily. 17. Garlic Extract 1200 mg daily. 18. Elderberry 800 mg daily. 19. Echinacea Goldenseal 1000 mg daily. 20. Tylenol 500 mg 2 tablets at bedtime. 21. Benadryl 25 mg at bedtime. 22. Ipratropium nasal spray p.r.n. PHYSICAL EXAMINATION: VITAL SIGNS: BP: 124/49, P: 81, R: 24, T: 97.7. Room air oxygen saturation is 94%. Weight: 191 pounds (increase of 4 pounds). GENERAL: This is a well-developed obese female in no acute distress speaking in full sentences. HEENT: Pupils are equal and reactive to light. Oropharynx is clear. No thrush. No erythema. NECK: Supple. No lymphadenopathy. LUNGS: Bilateral rhonchi throughout. No wheezes. CARDIAC: Rate and rhythm are regular. No murmur, rubs, or gallops. ABDOMEN: Obese. Soft and nontender. EXTREMITIES: There is 1+ to 2+ edema. No cyanosis or clubbing. Dorsum of right hand with open sore with pus in the center. NEUROLOGIC: Alert and oriented x3. Grossly nonfocal. IMAGING: All imaging independently reviewed by me personally. 1. Chest x-ray on September 01, 2017. Peribronchial cuffing, Giana B lines, left lower lobe cystic changes, and bilateral blunting of the costophrenic angle. No significant change from August 14, 2017. LABORATORIES: 1. CBC on September 01, 2017. Hemoglobin 11, hematocrit 35, white blood cell count 10.4, platelets 482,000. 2. Chemistry on September 01, 2017. Sodium 142, potassium 3.9, chloride 106, bicarbonate 26, BUN 12, creatinine 0.9, glucose 97. Please note: These chemistries reflect Lasix 60 mg daily. ASSESSMENT AND PLAN: PROBLEM #1: Chronic obstructive pulmonary disease (COPD). Patient has responded very well to antibiotics, prednisone, and her inhalers. PLAN: 1. Continue Advair 500/50 mcg 1 inhalation b.i.d. 2. Continue albuterol nebulizer q.i.d. and p.r.n. 3. Continue to use oxygen at 2 liters per nasal cannula. PROBLEM #2: Bronchiectasis. Appears to be at baseline after antibiotics and prednisone. PLAN: Observe closely for worsening of bronchiectasis. PROBLEM #3: Congestive heart failure/volume overload. Patient has tolerated the increase of Lasix to 60 mg daily. However, she still has signs of volume overload both on physical exam and her most recent chest x- ray. PLAN: 1. Increase Lasix to 80 mg daily. 2. Obtain chemistries in 7 to 10 days: Please call me with results. PROBLEM #4: Chronic sinusitis. Currently, under control at baseline. PLAN: 1. Continue mometasone nasal spray. 2. Continue ipratropium nasal spray. PROBLEM #5: Skin injury to dorsum of right hand caused by the nail of a dog. Patient categorically states that she was not bitten by the dog but that the dog 's nails ripped her skin. PLAN: 1. Augmentin 875 mg b.i.d. for 2 weeks. 2. Patient instructed if her hand wound does not respond to Augmentin, she should see her primary care provider. 3. Return to clinic in 3 months. cc: Dr. Sincere HORAN
== END 2017-09-04 10:51 ==
LOC: PULMONARY 10:46
PROVIDERS: ATTEND Internal Medicine Pulmonary Disease
DX: J44.9 Chronic obstructive pulmonary disease, unspecified (principal); J47.9 Bronchiectasis, uncomplicated; I50.9 Heart failure, unspecified; J32.9 Chronic sinusitis, unspecified; S69.91XA Unspecified injury of right wrist, hand and finger(s), initial encounter; W54.8XXA Other contact with dog, initial encounter; Y92.9 Unspecified place or not applicable; Y93.9 Activity, unspecified; Y99.9 Unspecified external cause status
CPT/HCPCS: 99214; G0463

== ENCOUNTER 2017-09-18 11:26 | Outpatient (CLI) | payer MEDICARE, OTHER ==
[2017-09-18 12:20] LABS: eGFR (African) > 60; eGFR (Non-African) > 60
== END 2017-09-18 11:27 ==
LOC: LAB 11:26
PROVIDERS: ATTEND Internal Medicine Pulmonary Disease
DX: J47.9 Bronchiectasis, uncomplicated (principal); I50.9 Heart failure, unspecified
CPT/HCPCS: 36415; 80048

== ENCOUNTER 2017-09-22 11:01 | Outpatient (CLI) | payer MEDICARE, OTHER | END 2017-09-22 11:03 | LOC: CARD 11:01 | PROVIDERS: ATTEND Internal Medicine Cardiovascular Disease | DX: I35.0 Nonrheumatic aortic (valve) stenosis (principal); Z86.79 Personal history of other diseases of the circulatory system; I10 Essential (primary) hypertension; J44.9 Chronic obstructive pulmonary disease, unspecified; J47.9 Bronchiectasis, uncomplicated; G47.30 Sleep apnea, unspecified; R07.9 Chest pain, unspecified | CPT/HCPCS: 36415; 80061; 83880; G0463 ==

== ENCOUNTER 2017-10-20 13:53 | Outpatient (CLI) | payer MEDICARE, OTHER ==
--- NOTE | 2017-10-20 16:32 | Diagnostic Imaging Report ---
LISSY GONZALEZ [facility] [address] [facility].[address] [address] Report Submission Date: Oct 20, 2017 3:01:46 PM CDT Patient Study Name: PATRICK MARTIN Date: Oct 20, 2017 2:03:21 PM CDT Modality Type: DX Gender: F Description: LOWER EXTREMITY : 36 Institution: [facility] Physician: LISSY GONZALEZ Right ankle History: Sinus tarsi pain Three views of the right ankle demonstrate narrowing of the subtalar joint space which does appear more pronounced on the ankle radiographs than on the foot radiographs. However, the lateral radiograph obtained of the right foot is not a true lateral radiograph and may minimize the appearance of the subtalar space narrowing. These findings would account for a sinus tarsi symptomatology. There are small dorsal and plantar calcaneal spurs. Impression: The subtalar joint space does appear narrowed, to a greater degree on the ankle radiographs than on foot radiographs obtained on the same date, perhaps relating to different obliquities. However, narrowing of the subtalar joint space would account for sinus tarsi pain. If indicated, ankle MRI could be obtained. Small dorsal and plantar calcaneal spurs. Electronically signed on Oct 20, 2017 3:01:46 PM CDT by: Carlee HORAN
--- NOTE | 2017-10-20 16:35 | Diagnostic Imaging Report ---
LISSY GONZALEZ [facility] [address] [facility] [address] Report Submission Date: Oct 20, 2017 3:04:22 PM CDT Patient Study Name: PATRICK MARTIN Date: Oct 20, 2017 2:00:29 PM CDT Modality Type: DX Gender: F Description: LOWER EXTREMITY : 36 Institution: [facility] Physician: LISSY GONZALEZ Right foot History: Foot pain. Pain near the cuboid bone Three views of the right foot were obtained which demonstrate advanced osteoarthritis involving the 1st MTP joint with a [id number] appearance. [id number] osteoarthritic findings are present involving the 3rd through 5th PIP joints. The metatarsal/tarsal bones remain normally aligned. No abnormalities of the cuboid are noted. There is a small plantar calcaneal spur. 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 [id number] osteoarthritis of the 3rd through 5th PIP joints. No cuboid abnormality is identified. Small plantar calcaneal spur. Electronically signed on Oct 20, 2017 3:04:22 PM CDT by: Carlee HORAN
== END 2017-10-20 13:55 ==
LOC: RAD 13:53
PROVIDERS: ATTEND Podiatrist Foot & Ankle Surgery
DX: M79.671 Pain in right foot (principal)
CPT/HCPCS: 73610; 73630

== ENCOUNTER 2017-12-04 11:03 | Outpatient (CLI) | payer MEDICARE, OTHER ==
--- NOTE | 2017-12-04 20:20 | Diagnostic Imaging Report ---
HAMILTON PANDEY [facility] [address] [facility] [address] [address] Report Submission Date: Dec 04, 2017 12:48:33 PM CDT Patient Study Name: PATRICK MARTIN Date: Dec 04, 2017 11:49:39 AM CDT Modality Type: DX Gender: F Description: CHEST : 36 Institution: [facility] Physician: HAMILTON PANDEY PA and lateral chest History: COPD. PA and lateral chest dated December 04, 2017 is compared with September 01, 2017 The right lung is unchanged. The cardiomediastinal silhouette is stable in size and configuration. However, there is a new focus of airspace disease at the left lung base consistent with interval development of pneumonia. There is unchanged mild blunting of the costophrenic angles bilaterally. Impression: New focus of airspace disease at the left lung base, consistent with pneumonia, when compared with September 01, 2017. Electronically signed on Dec 04, 2017 12:48:33 PM CDT by: Carlee HORAN
--- NOTE | 2017-12-15 09:06 | OP Clinic Progress Note ---
PRIMARY CARE PROVIDER: Dr. Sincere Stanton CHIEF COMPLAINT: "I feel like I have pneumonia." SIGNIFICANT PROBLEM LIST: 1. Chronic obstructive pulmonary disease. Home oxygen at 2 liters per nasal cannula at night and p.r.n. during the day. 2. Bronchiectasis. 3. Volume overload. 4. Steroid-induced hyperglycemia. 5. Moderate aortic stenosis, valve area 1.1 cm squared via echo on October 30, 2016. 6. Obstructive sleep apnea: Diagnosed in 2003. CPAP prescribed. Patient does not use it. 7. Cerebrovascular accident. 8. Transient ischemic attack in 2011: On clopidogrel. 9. Chronic sinusitis. 10. Sinus surgery x3. 11. Bilateral total knee replacements. 12. Status post cholecystectomy. 13. Status post appendectomy. HISTORY OF PRESENT ILLNESS: The patient returns to the clinic today in follow up with her . She states that she has a cough still productive of yellow sputum, which is her baseline, but that she feels nauseated and every time she feels nauseated, it appears that she does have pneumonia. It seems that the patient is taking 80 mg daily of furosemide as instructed (I think). ALLERGIES: 1. Duricef: Rash. 2. Clindamycin: Rash. 3. Sulfa: Unknown. 4. Levofloxacin oral: Nausea. Please note this is a drug intolerance and not an allergy, patient states she can take IV levofloxacin. PRESENT MEDICATIONS: 1. Clopidogrel 75 mg daily. 2. Ranitidine 150 mg daily. 3. Amlodipine 10 mg daily. 4. Furosemide 80 mg daily: I am not convinced the patient is actually taking 80 mg and may still be on the 60 mg daily. 5. Hyoscyamine 125 mg daily. 6. Esomeprazole 40 mg b.i.d. 7. Mucinex 600 mg b.i.d. 8. Lisinopril 10 mg daily. 9. Advair 500/50 mcg 1 inhalation b.i.d. 10. Mometasone nasal spray p.r.n. 11. Albuterol nebulizer t.i.d. to q.i.d. 12. Cetirizine 10 mg daily. 13. Multivitamin 1 tablet daily. 14. Ipratropium nasal spray p.r.n. 15. Benadryl 25 mg at bedtime. 16. Tylenol 500 mg 2 tablets at bedtime. 17. [place] 3, 500 mg daily. 18. Ginkgo 60 mg daily. 19. Cranberry Extract 40 mg daily. 20. Garlic Extract 1200 mg daily. 21. Elderberry 800 mg daily. 22. Echinacea Goldenseal 1000 mg daily. 23. Eye Bright 250 mg b.i.d. PHYSICAL EXAMINATION: GENERAL: This is a well-developed obese female in no acute distress and able to speak in full sentences. VITAL SIGNS: BP: 110/53, P: 100, R: 24, T: 98.7. Oxygen saturation on room air was 98%. HEENT: Pupils are equal and reactive to light. Oropharynx is clear. No thrush. No erythema. Neck: Supple. LUNGS: Rhonchi bilaterally. No wheezes. CARDIAC: Rate and rhythm are regular. No murmur, rubs, or gallops. ABDOMEN: Obese. Soft and nontender. EXTREMITIES: Trace to 1+ edema. No cyanosis or clubbing. NEUROLOGIC: Alert and oriented x3. Grossly nonfocal. IMAGING: All imaging independently reviewed by me personally. Chest x-ray on December 04, 2017. Evidence of bilateral area of bronchiectasis notable at the bases. There is a new air space consolidation in the left mid- lung area. ASSESSMENT: PROBLEM #1: Community-acquired pneumonia in a person with chronic disease. Patient has issues with several classes of antibiotics; therefore, I will try Augmentin again, although if there is slow resolution, she is able to tolerate azithromycin and ciprofloxacin. PLAN: 1. Obtain sputum gram stain CARPENTER/LABOR. 2. Augmentin 875 mg b.i.d. x3 weeks. PROBLEM #2: Chronic obstructive pulmonary disease (COPD). Patient does have hypoxemia on room air due to her significant underlying lung disease with a new area of focal infiltrate on the left. PLAN: 1. As above. 2. Prednisone taper via Medrol Dosepak. 3. Patient to use oxygen per nasal cannula at 2 liters per minute 24 hours per 7 days a week. 4. Continue Advair 500/50 mcg 1 inhalation b.i.d. 5. Continue albuterol nebulizer q.i.d. and p.r.n. PROBLEM #3: Bronchiectasis. Hopefully, this will improve somewhat after her antibiotics. Please see problem #1. PROBLEM #4: Congestive heart failure/volume overload. Patient thinks she is taking 80 mg a day. On physical exam, her lower extremities definitely have less edema, although still trace to 1+. PLAN: Continue Lasix 80 mg daily. PROBLEM #5: Chronic sinusitis. Currently at baseline. PLAN: 1. Continue mometasone nasal spray. 2. Continue ipratropium nasal spray. 3. Return to clinic in 2 weeks. cc: Dr. Sincere HORAN
== END 2017-12-04 11:05 ==
LOC: PULMONARY 11:03
PROVIDERS: ATTEND Internal Medicine Pulmonary Disease
DX: J18.9 Pneumonia, unspecified organism (principal); J44.9 Chronic obstructive pulmonary disease, unspecified; Z99.81 Dependence on supplemental oxygen; I50.9 Heart failure, unspecified; E87.70 Fluid overload, unspecified
CPT/HCPCS: 71046; 99214; G0463

== ENCOUNTER 2017-12-05 10:44 | Outpatient (CLI) | payer MEDICARE, OTHER | END 2017-12-05 10:45 | LOC: LAB 10:44 | PROVIDERS: ATTEND Internal Medicine Pulmonary Disease | DX: R06.02 Shortness of breath (principal); J18.9 Pneumonia, unspecified organism; J47.9 Bronchiectasis, uncomplicated | CPT/HCPCS: 87070; 87186 ==

== ENCOUNTER 2017-12-28 11:25 | Outpatient (CLI) | payer MEDICARE, OTHER ==
[2017-12-28 11:56] LABS: MEAN CORPUSCULAR HEMOGLOBIN 30.1 pg (28.0-34.0)
[2017-12-28 11:57] LABS: BASOPHILS % 0.4 (0.0-1.5); EOSINOPHILS % 3.4 % (0.0-6.8); MONOCYTES % 5.4 % (0.0-11.0); NEUTROPHILS # 8.8 # k/uL (1.4-7.7)
== END 2017-12-28 11:26 ==
LOC: LAB 11:25
PROVIDERS: ATTEND Family Medicine
DX: D64.9 Anemia, unspecified (principal)
CPT/HCPCS: 36415; 85025

== ENCOUNTER 2018-01-06 14:20 | Outpatient (CLI) | payer MEDICARE, OTHER ==
[2018-01-06 14:43] LABS: BASOPHILS % 0.4 (0.0-1.5); EOSINOPHILS % 1.4 % (0.0-6.8); MEAN CORPUSCULAR HEMOGLOBIN 29.8 pg (28.0-34.0); MONOCYTES % 3.9 % (0.0-11.0)
--- NOTE | 2018-01-06 17:43 | Diagnostic Imaging Report ---
FAINA MA [facility] [address] [facility] [address] [address] Report Submission Date: Jan 06, 2018 5:25:43 PM CLOCK SMITH Patient Study Name: PATRICK MARTIN Date: Jan 06, 2018 2:26:19 PM CLOCK SMITH Modality Type: DX Gender: F Description: CHEST : 36 Institution: [facility] Physician: FAINA MA Examination: PA and lateral chest. History: Evaluate lung vela. Comparison exam: 25 December 2017, 01 September 2017 Findings: PA and lateral views of the chest demonstrates a normal cardiac and mediastinal silhouette. Tortuous aorta with vascular calcifications. Chronic interstitial changes. Continued blunting of the left base/costophrenic margin. Articular degenerative changes. Impression: Stable, likely chronic, left base blunting. Chronic interstitial changes. Electronically signed on Jan 06, 2018 5:25:43 PM CLOCK SMITH by: Bautista HORAN
== END 2018-01-06 14:22 ==
LOC: LAB 14:20
PROVIDERS: ATTEND Family Medicine
DX: J45.909 Unspecified asthma, uncomplicated (principal); J44.9 Chronic obstructive pulmonary disease, unspecified; D72.829 Elevated white blood cell count, unspecified
CPT/HCPCS: 36415; 71046; 85025

== ENCOUNTER 2018-03-14 08:57 | Inpatient (IN) | payer MEDICARE, OTHER ==
--- NOTE | 2018-03-14 10:08 | Diagnostic Imaging Report ---
STEPHANIE SOLORIO [facility] [address] [facility] [address] [place] [address]. [id number] Report Submission Date: Mar 14, 2018 10:06:57 AM COATING MIXER TENDER Patient Study Name: PATRICK MARTIN Date: Mar 14, 2018 9:37:28 AM COATING MIXER TENDER Modality Type: DX Gender: F Description: CHEST : 36 Institution: [facility] Physician: STEPHANIE SOLORIO Pa and lateral chest Clinical history :short of breath Comparison: None on the time study observer Technique pa and lateral upright Findings: Lung vela are hyperinflated. There is left costophrenic angle blunting of left lower lobe infiltrate. Right costophrenic angle blunting and right midlung field infiltrates present. On the lateral radiograph the right midlung field infiltrate appears to be in the right upper lobe. There is also right lower lobe infiltrate cardiomegaly is present. There is aortic atherosclerosis and thoracic spondylosis Impression: Emphysema Bilateral infiltrates and pleural effusions greater on the right than left Electronically signed on Mar 14, 2018 10:06:57 AM COATING MIXER TENDER by: Manfred HORAN
[2018-03-14] MEDS ORDERED: MAGNESIUM, ALUMINUM HYDROXIDE 30 ML UDC PO PRN (11:03)
[2018-03-14] MEDS ORDERED: DOCUSATE SODIUM 100 MG CAPSULE PO PRN (11:03)
[2018-03-14] MEDS ORDERED: BISACODYL 5 MG TABLET.DR PO PRN (11:03)
[2018-03-14] MEDS: 0.45% SODIUM CHLORIDE 1,000 ML IV SCH ×2 (11:55→20:21)
[2018-03-14] MEDS ORDERED: IPRATROPIUM/ALBUTEROL SULFATE 3 ML AMPUL.NEB NEB SCH (12:00)
[2018-03-14] MEDS ORDERED: HYOSCYAMINE SULFATE 0.125 MG TAB.SUBL SL PRN (13:03)
--- NOTE | 2018-03-14 13:11 | History and Physical Report ---
History of Present Illnes - History of Present Illness Reason for Visit: dyspnea History of Present Illness: Patient is and 78-year-old white female with a long-standing history of COPD with bronchiectasis. Patient stated that she has been doing well until approximately three days prior to admission recent started to developed some chills increasing shortness of breath and a productive cough of some green to yellow phlegm. No home offices has been noted. Patient did increase her high flow treatment at home that continued to deteriorate. Patient stated her SaO2 did drop down into the mid 70s on oxygen at home. Patient subsequently came to the emergency room for evaluation. Patient was noted to be hypoxic. Patient did respond to IVs steroid and DuoNeb treatments but continue to have a SaO2 in the mid to low 80s. . Patient denies any chest pain. Chest x-ray did show bilateral lower lobe infiltrates. Patient did have a leukocytosis. Patient was subsequently admitted to the hospital for further care and evaluation. - Past Medical History Cardiac: HTN Pulmonary: Asthma, COPD, Other (chronic bronchiectasis) DOCUMENT MANAGER: TIA Gastrointestinal: GERD Heme/Onc: Other (thrombocyotosis, anemia) - Past Surgical History Past Surgical History: Appendectomy, Cholecystectomy, Tonsillectomy, Other (D&C, toe fusion) - Past Family History Mother Family History: (89yo, CHF) Father Family History: (80 yo ,unknown cause) Brother 1 Family History: Other (COPD) - Past Social History Smoke: No Alcohol: None Drugs: None Lives: With Family Domestic Violence: Negative - Health Maintenance Health Maintenance: Cholesterol, Influenza Vaccine, Pneumococcal Vaccine Influenza Vaccine: Current for this Influenza Season Pneumonia Vaccine: Yes Resuscitation Status: Resusciation Status Resuscitation Status Full Code Review of Systems - Review of Systems Constitutional: Fever, Chills. negative: Sweats, Weakness Eyes: negative: pain ENT: Nose Congestion. negative: Ear Pain, Ear Discharge, Nose Pain, Nose Discharge, Mouth Pain, Throat Pain, Throat Swelling Respiratory: Cough, Shortness of Breath, SOB with Excertion, Sputum (green), Wheezing. negative: Hemoptysis, Pleuritic Pain Cardiovascular: negative: Chest Pain, Palpitations, Orthopnea, Paroxysmal Noc. Dyspnea, Edema, Light [place]adedness Gastrointestinal: negative: Nausea, Vomiting, Abdominal Pain, Diarrhea, Constipation, Melena, Hematochezia Genitourinary: negative: Dysuria, Frequency, Incontinence, Hematuria Musculoskeletal: Back Pain, Leg Pain (knee) Skin: negative: Rash Neurological: negative: Weakness, Incoordination, Confusion, Seizures - Medications/Allergies Allergies/Adverse Reactions: Allergies Allergy/AdvReac Type Severity Reaction Status Date / Time cefadroxil hydrate Allergy Unknown Verified 03/15/18 08:23 [From Duricef] Cephalosporins Allergy Unknown Verified 03/15/18 08:23 clindamycin Allergy Unknown Verified 03/15/18 08:23 Sulfa (Sulfonamide Allergy Unknown Verified 03/15/18 08:23 Antibiotics) [Sulfa(Sulfonamide Antibiotics)] Pork/Porcine Containing AdvReac Intermediate Abdominal Verified 03/15/18 08:27 Products Pain levofloxacin [From Levaquin] AdvReac Mild Nausea/Vomi Verified 03/15/18 08:23 ting Quinolones AdvReac Mild Nausea/Vomi Verified 03/15/18 08:23 ting Current Inpatient Medications: Current Inpatient Medications Amlodipine Besylate (Norvasc) 10 mg PO DAILY [facility] Atorvastatin Calcium (Lipitor) 20 mg PO HS [facility] Bisacodyl (Dulcolax) 10 mg PO DAILY PRN PRN Reason: Constipation Clopidogrel Bisulfate (Plavix) 75 mg PO D [facility] Docusate Sodium (Colace) 100 mg PO DAILY PRN PRN Reason: Constipation Furosemide (Lasix) 80 mg PO D [facility] Guaifenesin (Mucinex) 600 mg PO BID [facility] Heparin Sodium (Porcine) (Heparin) 5,000 unit SQ Q8 [facility] Hyoscyamine (Levsin) 0.125 mg SL Q6 PRN PRN Reason: GI upset Sodium Chloride (1/2ns) 1,000 mls @ 75 mls/hr IV Q10H [facility] Last Admin: 03/14/18 11:55 Dose: 75 mls/hr LEVOFLOXACIN 250MG/D5W 50ML (250 mg/ PREMIX BAG) 50 mls @ 50 mls/hr IV DAILY [facility] Stop: 03/29/18 08:59 LEVOFLOXACIN 500MG/D5W 100ML (500 mg/ PREMIX BAG) 100 mls @ 100 mls/hr IV DAILY [facility] Stop: 03/29/18 08:59 Lisinopril (Prinivil) 10 mg PO D [facility] Methylprednisolone Sodium Succinate (Solu-Medrol) 60 mg IVP Q8 [facility] Miscellaneous (Ranitidine Hcl [Ranitidine Hcl]) 150 mg PO DAILY [facility] Ondansetron HCl (Zofran Odt) 4 mg PO Q6 PRN PRN Reason: Nausea / Vomiting Exam - Exam Vital Signs: Vital Signs (72 hours) 03/14/18 03/14/18 10:53 11:06 Temperature 97.9 F 97.9 F Pulse Rate [ 105 H 105 H Right] Respiratory 22 22 Rate Blood Pressure 106/45 106/45 [Right Arm] O2 Sat by Pulse 95 95 Oximetry General: Alert, Oriented to Person, Oriented to Place, Oriented to Time, Cooperative HEENT: Atraumatic, PERRLA, EOMI, Mouth Mucous membr. moist/[place], Nose Mucous membr. moist/[place] Neck: Normal Range of Motion Carotids: WNL Thyroid: WNL Lungs: Speaks full Sentences, Wheezes (bilateral expiratory), Rales (course bilateral L>R), Decreased Air Movement. No: Chest Wall Tenderness Cardiovascular: Regular rate, Normal S1, Normal S2, No murmurs Murmur: Systolic Murmur Heart Murmur Grade: II Abdomen: Normal bowel sounds, Soft, No tenderness, No hepatospenomegaly, No masses Integumentary: Normal, [place], Warm, Dry Extremities: No clubbing, No cyanosis, No edema, Normal pulses, No tenderness/swelling Neurological: Normal gait, Normal speech, Strength Equal Bilat, Normal tone, Sensation intact, Cranial nerves 3-12 NL, Reflexes 2+ Psych/Mental Status: Mental status NL, Mood NL, Appropriate Affect, Intact Judgment Assessment/Plan - Assessment/Plan (1) Pneumonia Status: Acute Current Visit: No Qualifiers: Pneumonia type: due to unspecified organism Laterality: right Lung location: upper lobe of lung Qualified Code(s): J18.1 - Lobar pneumonia, unspecified organism Assessment: Will start IV azithromycin and . Will give supplemental oxygen therapy to maintain SAO2 > 92 %. Patient will be started on IV solumedro and Duoneb treatments. (2) Bronchiectasis Status: Chronic Current Visit: No Qualifiers: Bronchiectasis type: with acute lower respiratory infection Qualified Code(s): J47.0 - Bronchiectasis with acute lower respiratory infection Comment: will continue at present care. (3) COPD exacerbation Status: Chronic Current Visit: No (4) Idiopathic thrombocytopenia Status: Chronic Current Visit: Yes (5) Essential hypertension Status: Chronic Current Visit: No Assessment: continue home meds VTE Assessment - RISK FACTOR SCORE VTE RISK FACTOR SCORES: AGE OVER 60 YEARS, ACUTE RESPIRATORY FAILURE/SEVERE COPD - RISK VTE MODERATE RISK: SCORE OF 2 (RISK PROXIMAL DVT 2-4%) PROPHYAXIS NEEDED
[2018-03-14] MEDS: HEPARIN SODIUM 5000 UNIT/1 ML SQ SCH ×2 (14:01→20:26)
[2018-03-14 14:40] VITALS: BMI 32.3
[2018-03-14] MEDS ORDERED: 0.9 % SODIUM CHLORIDE 500 ML IV ONE (17:41)
[2018-03-14] MEDS: methylPREDNISolone SOD SUCC 40 MG/ML VIAL IVP SCH ×2 (18:07→20:33)
[2018-03-14] MEDS: IPRATROPIUM/ALBUTEROL SULFATE 3 ML AMPUL.NEB NEB SCH ×2 (19:35→21:57)
[2018-03-14] MEDS: guaiFENesin 600 MG TAB.ER.12H PO SCH (20:26)
[2018-03-14] MEDS: ATORVASTATIN CALCIUM 20 MG TABLET PO SCH (20:26)
[2018-03-15] MEDS: IPRATROPIUM/ALBUTEROL SULFATE 3 ML AMPUL.NEB NEB SCH ×2 (01:50→06:42)
[2018-03-15] MEDS: HYDROcodone /APAP 5/325 1 EACH TABLET PO PRN ×2 (03:53→22:48)
[2018-03-15] MEDS: HEPARIN SODIUM 5000 UNIT/1 ML SQ SCH ×3 (04:59→20:56)
[2018-03-15] MEDS: methylPREDNISolone SOD SUCC 40 MG/ML VIAL IVP SCH ×3 (06:31→20:56)
[2018-03-15] MEDS: 0.45% SODIUM CHLORIDE 1,000 ML IV SCH ×2 (06:51→20:54)
[2018-03-15 07:15] LABS: BASOPHILS % 0.4 (0.0-1.5); EOSINOPHILS % 1.2 % (0.0-6.8); MEAN CORPUSCULAR HEMOGLOBIN 29.9 pg (28.0-34.0); MONOCYTES % 1.8 % (0.0-11.0); NEUTROPHILS # 13.3 # k/uL (1.4-7.7)
[2018-03-15 07:24] LABS: eGFR (Non-African) > 60
[2018-03-15 07:56] LABS: EOSINOPHILS % 0.8 % (0.0-6.8); MEAN CORPUSCULAR HEMOGLOBIN 29.5 pg (28.0-34.0); MONOCYTES % 2.3 % (0.0-11.0); NEUTROPHILS # 2.5 # k/uL (1.4-7.7); eGFR (Non-African) 42
[2018-03-15] MEDS: guaiFENesin 600 MG TAB.ER.12H PO SCH ×2 (08:42→20:56)
[2018-03-15] MEDS: CLOPIDOGREL BISULFATE 75 MG TABLET PO SCH (08:42)
[2018-03-15] MEDS: amLODIPine BESYLATE 5 MG TABLET PO SCH (08:42)
[2018-03-15] MEDS: FUROSEMIDE 40 MG TABLET PO SCH (08:42)
[2018-03-15] MEDS: LISINOPRIL 5 MG TABLET PO SCH (08:43)
[2018-03-15] MEDS: LEVOFLOXACIN 250MG/D5W 50ML 250 MG in PREMIX BAG 1 BAG IV SCH (08:49)
[2018-03-15] MEDS: LEVALBUTEROL HCL 1.25 MG/3 ML AMPUL.NEB NEB SCH ×4 (09:10→22:32)
[2018-03-15] MEDS: IPRATROPIUM BROMIDE 0.5 MG/2.5 ML AMPUL.NEB NEB SCH ×4 (09:10→20:56)
[2018-03-15] MEDS: LEVOFLOXACIN 500MG/D5W 100ML 500 MG in PREMIX BAG 1 BAG IV SCH (09:25)
[2018-03-15] MEDS: FAMOTIDINE 20 MG TABLET PO SCH (12:07)
[2018-03-15] MEDS: ONDANSETRON HCL 4 MG TAB.RAPDIS PO PRN (16:12)
--- NOTE | 2018-03-15 16:56 | Inpatient Progress Note ---
Subjective - Required Recertification Statement I anticipate X number of days because-include discharge plan: 2 days - Review of Systems Events since last encounter: Patient continues to have a productive cough. SAO2 is stable at this time. Still has poor exercise tolerance. Appeitie is good. Pulmonary: Cough (productive of some yellow phlegm) Cardiovascular: Chest Pain (with coughing) Gastrointestinal: Denies: Nausea, Vomiting, Abdominal Pain, Diarrhea Musculoskeletal: Shoulder Pain (left arthritic type pain. ) Objective - Exam Vitals and I&O: Vital Signs Temp 99 F 03/15/18 14:00 Pulse 115 H 03/15/18 14:00 Resp 22 03/15/18 14:00 BP 95/47 03/15/18 14:00 Pulse Ox 95 03/15/18 14:00 Intake & Output 03/14/18 03/15/18 03/15/18 23:59 11:59 23:59 Intake Total 2985 320 240 Output Total 500 0 900 Balance 2485 320 -660 Weight 82.024 kg Intake: IV 2625 200 Left Antecubital 2625 200 Oral 360 120 240 Output: Urine 500 900 Stool 0 0 Other: Voiding Method Toilet Toilet # Voids 2 # Bowel Movements 0 General: Alert, Oriented to Person, Oriented to Place, Oriented to Time, Cooperative HEENT: Nose Mucous membr. moist/[place] Neck: Supple, No JVD Lungs: Normal air movement, Speaks full Sentences, Wheezes (mild expiratory), Rhonchi (course bilateral) Cardiovascular: Regular rate, Normal S1, Normal S2, Murmur Abdomen: Normal bowel sounds, Soft, No tenderness, No hepatospenomegaly, No masses Extremities: No clubbing, No edema Skin: Normal, [place], Warm Neurological: Normal gait, Normal speech Psych/Mental Status: Mental status NL, Mood NL, Intact Judgment - Results Results: Laboratory Results WBC 15.20 K/ul (4.00-12.00) H 03/15/18 06:10 RBC 3.44 M/ul (3.90-5.20) L 03/15/18 06:10 Hgb 10.3 g/dL (12.0-16.0) L 03/15/18 06:10 Hct 31.4 % (34.5-46.5) L 03/15/18 06:10 MCV 91.0 fl (80.0-100.0) 03/15/18 06:10 MCH 29.9 pg (28.0-34.0) 03/15/18 06:10 MCHC 32.8 g/dL (30.0-36.0) 03/15/18 06:10 RDW 13.8 % (11.3-14.3) 03/15/18 06:10 Plt Count 460 K/mm3 (130-400) H 03/15/18 06:10 Neut % (Auto) 87.5 % (39.0-79.0) H 03/15/18 06:10 Lymph % (Auto) 9.1 % (16.0-50.0) L 03/15/18 06:10 [place] % (Auto) 1.8 % (0.0-11.0) 03/15/18 06:10 Eos % (Auto) 1.2 % (0.0-6.8) 03/15/18 06:10 Baso % (Auto) 0.4 (0.0-1.5) 03/15/18 06:10 Neut # (Auto) 13.3 # k/uL (1.4-7.7) H 03/15/18 06:10 Lymph # (Auto) 1.4 # k/uL (0.6-4.0) 03/15/18 06:10 [place] # (Auto) 0.3 # k/uL (0.0-0.9) 03/15/18 06:10 Eos # (Auto) 0.2 # k/uL (0.0-0.6) 03/15/18 06:10 Baso # (Auto) 0.1 # k/uL (0.0-0.5) 03/15/18 06:10 Sodium 134 mmol/L (136-145) L 03/15/18 06:10 Potassium 4.2 mmol/L (3.5-5.1) 03/15/18 06:10 Chloride 101 mmol/L (98-107) 03/15/18 06:10 Carbon Dioxide 24 mmol/L (22-30) 03/15/18 06:10 BUN 20 mg/dL (7-17) H 03/15/18 06:10 Creatinine 1.00 mg/dL (0.52-1.04) 03/15/18 06:10 Estimated Creat Clear 68 03/15/18 06:10 Est GFR ( Amer) > 60 (60-) 03/15/18 06:10 Est GFR (Non-Af Amer) > 60 (60-) 03/15/18 06:10 Glucose 176 mg/dL (74-106) H 03/15/18 06:10 Lactate 2.9 U/L (0.7-2.1) H 03/14/18 Unknown Calcium 9.2 mg/dL (8.4-10.2) 03/15/18 06:10 Total Bilirubin 0.5 mg/dL (0.2-1.3) 03/14/18 09:27 AST 29 U/L (15-46) 03/14/18 09:27 ALT 15 U/L (13-69) 03/14/18 09:27 Alkaline Phosphatase 104 U/L (38-126) 03/14/18 09:27 Troponin I < 0.03 ng/mL (0.03-0.06) L 03/14/18 09:27 NT-Pro-B Natriuret Pep 182.8 pg/mL (15.0-450.0) 03/14/18 09:27 Total Protein 7.4 g/dL (6.3-8.2) 03/14/18 09:27 Albumin 4.4 g/dL (3.5-5.0) 03/14/18 09:27 Assessment/Plan - Assessment/Plan (1) Pneumonia Status: Acute Current Visit: No Qualifiers: Pneumonia type: due to unspecified organism Laterality: right Lung location: upper lobe of lung Qualified Code(s): J18.1 - Lobar pneumonia, unspecified organism Assessment: continue with present treatment (2) COPD exacerbation Status: Chronic Current Visit: No Assessment: continue with present treatment (3) Arthritis of left shoulder region Status: Acute Current Visit: Yes Assessment: will try warm moist heat
[2018-03-15] MEDS ORDERED: LEVALBUTEROL NEB 1.25 MG/3 ML VIAL.NEB IH ONE ×2 (17:00→20:15)
[2018-03-15] MEDS: ATORVASTATIN CALCIUM 20 MG TABLET PO SCH (20:56)
[2018-03-16] MEDS: HEPARIN SODIUM 5000 UNIT/1 ML SQ SCH ×3 (04:23→20:00)
[2018-03-16] MEDS: methylPREDNISolone SOD SUCC 40 MG/ML VIAL IVP SCH ×2 (04:28→20:01)
[2018-03-16] MEDS ORDERED: [UNRECOGNIZED DRUG - OTHER] IV ONE (07:59)
[2018-03-16] MEDS ORDERED: LEVOFLOXACIN IV ONE (07:59)
[2018-03-16] MEDS: LEVOFLOXACIN 250MG/D5W 50ML 250 MG in PREMIX BAG 1 BAG IV SCH (08:07)
[2018-03-16] MEDS: IPRATROPIUM BROMIDE 0.5 MG/2.5 ML AMPUL.NEB NEB SCH ×4 (08:10→22:33)
[2018-03-16] MEDS ORDERED: LEVALBUTEROL NEB 1.25 MG/3 ML VIAL.NEB IH SCH (09:00)
[2018-03-16] MEDS: FAMOTIDINE 20 MG TABLET PO SCH (09:21)
[2018-03-16] MEDS: guaiFENesin 600 MG TAB.ER.12H PO SCH ×2 (09:21→20:02)
[2018-03-16] MEDS: CLOPIDOGREL BISULFATE 75 MG TABLET PO SCH (09:22)
[2018-03-16] MEDS: LISINOPRIL 5 MG TABLET PO SCH (09:24)
[2018-03-16] MEDS: amLODIPine BESYLATE 5 MG TABLET PO SCH (09:24)
[2018-03-16] MEDS ORDERED: 0.9 % SODIUM CHLORIDE 0 ML IV ONE (09:32)
[2018-03-16] MEDS ORDERED: LEVOFLOXACIN 500MG/D5W 100ML 100 ML IV ONE (09:32)
[2018-03-16] MEDS: FUROSEMIDE 40 MG TABLET PO SCH (09:41)
[2018-03-16] MEDS: LEVOFLOXACIN 500MG/D5W 100ML 500 MG in PREMIX BAG 1 BAG IV SCH (09:42)
[2018-03-16] MEDS: 0.45% SODIUM CHLORIDE 1,000 ML IV SCH ×2 (10:09→14:43)
[2018-03-16] MEDS: LEVALBUTEROL NEB 1.25 MG/3 ML VIAL.NEB IH SCH ×3 (12:20→22:35)
[2018-03-16] MEDS: ATORVASTATIN CALCIUM 20 MG TABLET PO SCH (20:02)
[2018-03-16] MEDS ORDERED: MELATONIN 3 MG TABLET PO SCH (21:00)
[2018-03-17] MEDS: 0.45% SODIUM CHLORIDE 1,000 ML IV SCH ×2 (00:31→11:32)
[2018-03-17] MEDS: ONDANSETRON HCL 4 MG TAB.RAPDIS PO PRN (02:10)
[2018-03-17] MEDS: IPRATROPIUM BROMIDE 0.5 MG/2.5 ML AMPUL.NEB NEB SCH ×4 (02:32→13:21)
[2018-03-17] MEDS: LEVALBUTEROL NEB 1.25 MG/3 ML VIAL.NEB IH SCH ×3 (02:33→13:45)
[2018-03-17] MEDS: HEPARIN SODIUM 5000 UNIT/1 ML SQ SCH ×2 (05:03→12:45)
[2018-03-17] MEDS ORDERED: [UNRECOGNIZED DRUG - OTHER] IV ONE (08:55)
[2018-03-17] MEDS ORDERED: LEVOFLOXACIN IV ONE (08:55)
[2018-03-17] MEDS ORDERED: LEVOFLOXACIN 500MG/D5W 100ML 0 ML IV ONE (08:55)
[2018-03-17] MEDS: methylPREDNISolone SOD SUCC 40 MG/ML VIAL IVP SCH (09:05)
[2018-03-17 09:08] LABS: MONOCYTES % 3 % (0-11); SEGMENTED NEUTROPHILS % 75 % (39-79)
[2018-03-17] MEDS: LEVOFLOXACIN 250MG/D5W 50ML 250 MG in PREMIX BAG 1 BAG IV SCH (09:10)
[2018-03-17 09:15] LABS: eGFR (Non-African) > 60
[2018-03-17] MEDS: amLODIPine BESYLATE 5 MG TABLET PO SCH (09:51)
[2018-03-17] MEDS: guaiFENesin 600 MG TAB.ER.12H PO SCH (09:51)
[2018-03-17] MEDS: FAMOTIDINE 20 MG TABLET PO SCH (09:52)
[2018-03-17] MEDS: CLOPIDOGREL BISULFATE 75 MG TABLET PO SCH (09:52)
[2018-03-17] MEDS: LISINOPRIL 5 MG TABLET PO SCH (09:52)
[2018-03-17] MEDS: FUROSEMIDE 40 MG TABLET PO SCH (09:54)
[2018-03-17] MEDS: LEVOFLOXACIN 500MG/D5W 100ML 500 MG in PREMIX BAG 1 BAG IV SCH (10:55)
--- NOTE | 2018-03-17 11:39 | Diagnostic Imaging Report ---
[place]/MED SURG [facility] [address] [address] [facility] [address] [address] Report Submission Date: Mar 17, 2018 7:22:02 AM COMPILATION CLERK Patient Study Name: PATRICK MARTIN Date: Mar 17, 2018 6:52:21 AM COMPILATION CLERK Modality Type: DX Gender: F Description: CHEST : 36 Institution: [facility] Physician: JAYLEN JOHNSTON/MED SURG Chest two views History: Dyspnea Findings: Patchy bilateral mid to lower lung infiltrates or edema, borderline cardiomegaly, pulmonary vascular congestion, and small bilateral pleural effusions are present. Right upper lobe infiltrate has significantly decreased since the exam obtained 3 days ago. Impression: Improving right upper lobe infiltrate. Otherwise no change. Electronically signed on Mar 17, 2018 7:22:02 AM COMPILATION CLERK by: Familia HORAN
--- NOTE | 2018-03-17 14:35 | Inpatient Progress Note ---
Subjective - Required Recertification Statement I anticipate X number of days because-include discharge plan: 2 days - Review of Systems Events since last encounter: Patient continues to have a productive cough up some green to yellow phlegm. Patient stated her shortness of breath is slightly improved. Patient does not seem to be reading as much as previously. Patient does complain of some tightness in her left anterior chest area when she coughs. Patient states that when she thought cough and she's not happening discomfort. The pain to the left shoulder area is improved with a K pad. Continue to have some discomfort with movement. Patient continues to have dyspnea with even walking to the bathroom. Patient did not sleep well last night secondary to being awoke frequently for breathing treatments and vital signs. General: Denies: Chills Pulmonary: Dyspnea, Cough Cardiovascular: Denies: Palpitations (HR has been in 120s post breathing treatments) Gastrointestinal: Denies: Nausea, Vomiting, Abdominal Pain, Diarrhea Objective - Exam Vitals and I&O: Vital Signs Temp 97.5 F L 03/17/18 09:57 Pulse 107 H 03/17/18 13:22 Resp 18 03/17/18 13:22 BP 96/48 03/17/18 13:22 Pulse Ox 96 03/17/18 13:22 Intake & Output 03/16/18 03/17/18 03/17/18 23:59 11:59 23:59 Intake Total 840 1520 600 Output Total 1525 1000 700 Balance -685 520 -100 Weight 83.461 kg Intake: Oral 840 1520 600 Output: Urine 1525 1000 700 Other: Voiding Method Toilet Toilet # Voids 3 # Bowel Movements 0 General: Alert, Oriented to Person, Oriented to Place, Oriented to Time, Cooperative Neck: Supple, No JVD, No thyromegaly Lungs: Normal air movement (the wound will will), Speaks full Sentences, Wheezes (bilat), Rhonchi (bilat) Cardiovascular: Regular rate, Normal S1, Normal S2, Murmur Abdomen: Normal bowel sounds, Soft, No tenderness Skin: Normal, [place], Warm, Dry Neurological: Normal speech Psych/Mental Status: Mental status NL, Mood NL, Intact Judgment - Results Results: Laboratory Results WBC 19.10 K/ul (4.00-12.00) H 03/17/18 08:15 RBC 3.89 M/ul (3.90-5.20) L 03/17/18 08:15 Hgb 11.7 g/dL (12.0-16.0) L 03/17/18 08:15 Hct 35.3 % (34.5-46.5) 03/17/18 08:15 MCV 91.0 fl (80.0-100.0) 03/17/18 08:15 MCH 30.0 pg (28.0-34.0) 03/17/18 08:15 MCHC 33.0 g/dL (30.0-36.0) 03/17/18 08:15 RDW 14.3 % (11.3-14.3) 03/17/18 08:15 Plt Count 514 K/mm3 (130-400) H 03/17/18 08:15 Neut % (Auto) 87.5 % (39.0-79.0) H 03/15/18 06:10 Lymph % (Auto) 9.1 % (16.0-50.0) L 03/15/18 06:10 [place] % (Auto) 1.8 % (0.0-11.0) 03/15/18 06:10 Eos % (Auto) 1.2 % (0.0-6.8) 03/15/18 06:10 Baso % (Auto) 0.4 (0.0-1.5) 03/15/18 06:10 Neut # (Auto) 13.3 # k/uL (1.4-7.7) H 03/15/18 06:10 Lymph # (Auto) 1.4 # k/uL (0.6-4.0) 03/15/18 06:10 [place] # (Auto) 0.3 # k/uL (0.0-0.9) 03/15/18 06:10 Eos # (Auto) 0.2 # k/uL (0.0-0.6) 03/15/18 06:10 Baso # (Auto) 0.1 # k/uL (0.0-0.5) 03/15/18 06:10 Seg Neutrophils % 75 % (39-79) 03/17/18 08:15 Band Neutrophils % 6 % (0-12) 03/17/18 08:15 Lymphocytes % 16 % (16-50) 03/17/18 08:15 Monocytes % 3 % (0-11) 03/17/18 08:15 Sodium 135 mmol/L (136-145) L 03/17/18 08:15 Potassium 3.9 mmol/L (3.5-5.1) 03/17/18 08:15 Chloride 101 mmol/L (98-107) 03/17/18 08:15 Carbon Dioxide 25 mmol/L (22-30) 03/17/18 08:15 BUN 22 mg/dL (7-17) H 03/17/18 08:15 Creatinine 0.93 mg/dL (0.52-1.04) 03/17/18 08:15 Estimated Creat Clear 74 03/17/18 08:15 Est GFR ( Amer) > 60 (60-) 03/17/18 08:15 Est GFR (Non-Af Amer) > 60 (60-) 03/17/18 08:15 Glucose 116 mg/dL (74-106) H 03/17/18 08:15 Lactate 2.9 U/L (0.7-2.1) H 03/14/18 Unknown Calcium 9.2 mg/dL (8.4-10.2) 03/17/18 08:15 Total Bilirubin 0.3 mg/dL (0.2-1.3) 03/17/18 08:15 AST 43 U/L (15-46) 03/17/18 08:15 ALT 26 U/L (13-69) 03/17/18 08:15 Alkaline Phosphatase 78 U/L (38-126) 03/17/18 08:15 Troponin I 2.24 ng/mL (0.03-0.06) H 03/17/18 13:20 NT-Pro-B Natriuret Pep 69847.5 pg/mL (15.0-450.0) H 03/17/18 13:20 Total Protein 7.1 g/dL (6.3-8.2) 03/17/18 08:15 Albumin 4.2 g/dL (3.5-5.0) 03/17/18 08:15 Assessment/Plan - Assessment/Plan (1) Pneumonia Status: Acute Current Visit: No Qualifiers: Pneumonia type: due to unspecified organism Laterality: right Lung location: upper lobe of lung Qualified Code(s): J18.1 - Lobar pneumonia, unspecified organism Assessment: Blood cultures pending, no growth so far. Continue with present treatment. Will recheck chest x-ray in AM . (2) COPD exacerbation Status: Chronic Current Visit: No Assessment: stable (3) Arthritis of left shoulder region Status: Acute Current Visit: Yes Assessment: Improved with K pad (4) Essential hypertension Status: Chronic Current Visit: No Assessment: stable on home meds
[2018-03-17] MEDS ORDERED: ASPIRIN 325 MG TABLET ONE (14:55)
[2018-03-17] MEDS ORDERED: ASPIRIN 325 MG TABLET PO ONE (15:01)
[2018-03-17 16:55] VITALS: BP 115/54
--- NOTE | 2018-04-27 11:14 | Discharge Summary ---
Discharge Summary - Discharge Sumary History of Present Illness: Patient is and 78-year-old white female with a long-standing history of COPD with bronchiectasis. Patient stated that she has been doing well until approximately three days prior to admission recent started to developed some chills increasing shortness of breath and a productive cough of some green to yellow phlegm. No home offices has been noted. Patient did increase her high flow treatment at home that continued to deteriorate. Patient stated her SaO2 did drop down into the mid 70s on oxygen at home. Patient subsequently came to the emergency room for evaluation. Patient was noted to be hypoxic. Patient did respond to IVs steroid and DuoNeb treatments but continue to have a SaO2 in the mid to low 80s. . Patient denies any chest pain. Chest x-ray did show bilateral lower lobe infiltrates. Patient did have a leukocytosis. Patient was subsequen tly admitted to the hospital for further care and evaluation. Condition at Discharge: Stable Home Medications: Ambulatory Orders Medication Instructions Recorded Bisacodyl [Dulcolax] 10 mg PO DAILY PRN tablet. 03/17/18 HYDROcodone /APAP 5/325 [[place]ran[place] Gap 1 each PO Q6 PRN tablet 03/17/18 5/325] Levalbuterol HCl [Xopenex INH Soln] 1.25 mg IH Q4 vial.alexei 03/17/18 Magnesium, Aluminum Hydroxide 30 ml PO Q6 PRN udc 03/17/18 [Maalox] Melatonin 3 mg PO HS tablet 03/17/18 Consultations this Visit: None Allergies/Adverse Reactions: Allergies Allergy/AdvReac Type Severity Reaction Status Date / Time cefadroxil hydrate Allergy Unknown Verified 03/15/18 08:23 [From Duricef] Cephalosporins Allergy Unknown Verified 03/15/18 08:23 clindamycin Allergy Unknown Verified 03/15/18 08:23 Sulfa (Sulfonamide Allergy Unknown Verified 03/15/18 08:23 Antibiotics) [Sulfa(Sulfonamide Antibiotics)] Pork/Porcine Containing AdvReac Intermediate Abdominal Verified 03/15/18 08:27 Products Pain levofloxacin [From Levaquin] AdvReac Mild Nausea/Vomi Verified 03/15/18 08:23 ting Quinolones AdvReac Mild Nausea/Vomi Verified 03/15/18 08:23 ting Discharge Summary: Patient is and 78-year-old white female who is admitted for exacerbation of COPD with probable pneumonia. Patient did have blood cultures drawn was subsequently came back no growth. Patient was started on DuoNeb treatments and was given methylprednisolone to help with her COPD exacerbation. Patient was noted to have some tachycardia and DuoNeb for switched over to Xopenex. Patient was started on Levaquin IV for antibiotic therapy. Patient did have a leukocytosis of 25,700. At the time of transfer that the improved to 19,100. Patient BUN and creatinine remain stable. Patient did have some mild hyperglycemia associated with his steroid therapy with a blood sugar running in the low 100 range. During hospitalization patient did start to complain of some chest tightness with coughing. Patient was having which she felt to be arthritic pain in the left shoulder area which did improve with her warm compress.An initial troponin on the day of admission was 0.03. A repeat troponin was done on and was 2.24 with a BNP 16,739. EKG did not show any acute ischemic changes. Patient was advised that she very well possibly may be having a coronary event and she was subsequently transferred to the [facility] in clinic for further cardiac evaluation. Prior to transferring patient was given aspirin 325 mg PO. At the time of transfer patient will find remain stable. - Final Diagnosis (1) Non-STEMI (non-ST elevated myocardial infarction) Problems: Patient have an elevated troponin with no EKG changes. Patient has been having some chest tightness associated with coughing. (2) Pneumonia Problems: Currently being treated with IV antibiotics and nebulization treatments. (3) COPD exacerbation Problems: Currently being treated with IV steroids and high flow nebulization treatments. (4) Arthritis of left shoulder region Problems: stable (5) Essential hypertension Problems: stable on home meds
== END 2018-03-17 15:33 | disposition short-term general hospital (02) | DRG 280 ==
LOC: ED 08:57 → SOUTH 10:30
PROVIDERS: ADMIT Family Medicine; ATTEND Family Medicine
DX: I21.4 Non-ST elevation (NSTEMI) myocardial infarction (principal); J18.1 Lobar pneumonia, unspecified organism; J47.0 Bronchiectasis with acute lower respiratory infection; D69.3 Immune thrombocytopenic purpura; I10 Essential (primary) hypertension; M19.011 Primary osteoarthritis, right shoulder
CPT/HCPCS: 36415; 71046; 80048; 80053; 83605; 83880; 84484; 85025; 87040; 93005; 94640; 94760; A9270; J1030; J1644; J1956; J7060; J7614; 99223; 99231; 99238; J2920; J7030; S1016

== ENCOUNTER 2018-09-20 11:43 | Inpatient (IN) | payer MEDICARE, OTHER ==
[2018-09-20 12:16] VITALS: BMI 31.6
--- NOTE | 2018-09-20 13:20 | History and Physical Report ---
History of Present Illnes - History of Present Illness Reason for Visit: dyspnea, cough History of Present Illness: Has a history of COPD and chronic bronchiectasis stated she started having some increasing shortness of breath and dyspnea. Patient states she is been nausea which is usually assigned that she is developing some respiratory problems. Patient is had a low-grade fever denies any chills at this time. Patient does have a cough but is nonproductive in nature. Patient denies any chest pain or chest pressure. Patient is not had any hemoptysis. Patient has been complaining some increasing shortness of breath. Patient is had to start wearing her oxygen on a 24 hour basis in order to keep her SaO2 greater than 90%. Even with the oxygen at the drop down to 8788% when she is ambulating. Patient is not sleeping well secondary to her breathing problems. Patient was seen in the office was noted have a SaO2 89% at 2 L. Patient is usually on room air. Patient was subsequently admitted to the hospital for further care and evaluation. - Past Medical History Cardiac: CAD, HTN Pulmonary: Asthma, COPD, Other (chronic bronchiectasis) PROGRAM MANAGEMENT MANAGER: TIA Gastrointestinal: GERD Heme/Onc: Other (thrombocyotosis, anemia) - Past Surgical History Past Surgical History: Appendectomy, Cholecystectomy, Tonsillectomy, Other (D&C, toe fusion) - Past Family History Mother Family History: (89yo, CHF) Father Family History: (80 yo ,unknown cause) Brother 1 Family History: , Other (COPD) - Past Social History Smoke: No Alcohol: None Drugs: None Lives: With Family Domestic Violence: Negative - Health Maintenance Health Maintenance: Cholesterol, Influenza Vaccine, Pneumococcal Vaccine Influenza Vaccine: Current for this Influenza Season Pneumonia Vaccine: Yes Resuscitation Status: Resusciation Status Resuscitation Status Full Code - Unable to Obtain History Unable to Obtain: No Review of Systems - Review of Systems Constitutional: Weakness. negative: Fever, Chills Eyes: negative: pain, vision change ENT: Nose Congestion (mild). negative: Ear Pain, Ear Discharge, Nose Pain, Nose Discharge, Throat Pain Respiratory: Cough, Dry, Shortness of Breath, SOB with Excertion. negative: Hemoptysis, Pleuritic Pain Cardiovascular: negative: Chest Pain, Palpitations, Orthopnea, Edema, Light Headedness Gastrointestinal: Nausea. negative: Vomiting, Abdominal Pain, Diarrhea, Constipation, Melena, Hematochezia Genitourinary: negative: Dysuria, Frequency, Incontinence, Hematuria, Retention Musculoskeletal: negative: Neck Pain Skin: negative: Rash, Lesions Neurological: Weakness. negative: Numbness, Incoordination, Change in Speech, Confusion - Medications/Allergies Allergies/Adverse Reactions: Allergies Allergy/AdvReac Type Severity Reaction Status Date / Time clindamycin Allergy Mild Generalized Verified 05/23/18 10:37 Redness cefadroxil hydrate Allergy Unknown Verified 05/23/18 10:37 [From Duricef] Cephalosporins Allergy Unknown Verified 05/23/18 10:37 Sulfa (Sulfonamide Allergy Unknown Verified 05/23/18 10:37 Antibiotics) [Sulfa(Sulfonamide Antibiotics)] Pork/Porcine Containing AdvReac Intermediate Abdominal Verified 05/23/18 10:37 Products Pain levofloxacin [From Levaquin] AdvReac Mild Nausea/Vomi Verified 05/23/18 10:37 ting Quinolones AdvReac Mild Nausea/Vomi Verified 05/23/18 10:37 ting Home Medications: Home Medications Aspirin 81 mg PO DAILY 09/20/18 Cetirizine HCl [Zyrtec] 10 mg PO DAILY 09/20/18 Furosemide [Lasix] 40 mg PO DAILY 09/20/18 Guaifenesin [Mucinex] 600 mg PO DAILY 09/20/18 Multivit-Min/Iron/Folic/Lutein [Centrum Silver Women Tablet] 1 tab PO DAILY 09/20/18 Current Inpatient Medications: Current Inpatient Medications Albuterol/Ipratropium (Duoneb) 3 ml NEB Q4 [facility] Aspirin (Jacqui) 81 mg PO DAILY [facility] Atorvastatin Calcium (Lipitor) 20 mg PO HS [facility] Clopidogrel Bisulfate (Plavix) 75 mg PO DAILY [facility] Enoxaparin Sodium (Lovenox) 40 mg SQ DAILY [facility] Stop: 10/05/18 08:59 Furosemide (Lasix) 40 mg PO DAILY [facility] Guaifenesin (Mucinex) 600 mg PO DAILY [facility] Lisinopril (Prinivil) 10 mg PO DAILY [facility] Methylprednisolone Sodium Succinate (Solu-Medrol) 60 mg IVP Q12 [facility] Pantoprazole Sodium (Protonix) 40 mg PO DAILY [facility] Sodium Chloride (Normal Saline Flush) 3 ml IV BID [facility] Exam - Exam Vital Signs: Vital Signs (72 hours) 09/20/18 09/20/18 11:51 12:11 Temperature 97.6 F 97.6 F Pulse Rate [ 85 85 Left] Respiratory 20 20 Rate Blood Pressure 115/54 115/54 [Left Arm] Blood Pressure 115/54 [Right Arm] O2 Sat by Pulse 98 98 Oximetry General: Alert, Oriented to Person, Oriented to Place, Oriented to Time, Cooperative, Moderate distress HEENT: Atraumatic, PERRLA, EOMI, Mouth Mucous membr. moist/[place], Nose Mucous membr. moist/[place], Dentition Normal Neck: Normal Range of Motion Carotids: WNL Thyroid: WNL Lungs: Speaks full Sentences, Respiratory Distress, Wheezes, Rhonchi Cardiovascular: Regular rate, Normal S1, Normal S2, No murmurs. No: Gallops, Rubs Abdomen: Normal bowel sounds, Soft, No tenderness, No hepatospenomegaly, No masses Integumentary: Normal, [place], Warm, Dry Extremities: No clubbing, No cyanosis, No edema, Normal pulses, No tenderness/swelling Neurological: Normal gait, Normal speech, Strength Equal Bilat, Normal tone, Sensation intact, Cranial nerves 3-12 NL, Reflexes 2+ Psych/Mental Status: Mental status NL, Mood NL, Appropriate Affect, Intact Judgment Assessment/Plan - Assessment/Plan (1) COPD exacerbation Status: Chronic Current Visit: No (2) Acute exacerbation of bronchiectasis Status: Acute Current Visit: No (3) Hyperglycemia Status: Acute Current Visit: No (4) Congestive heart failure Status: Acute Current Visit: No Qualifiers: Heart failure type: combined systolic and diastolic Heart failure chronicity: acute Qualified Code(s): I50.41 - Acute combined systolic (congestive) and diastolic (congestive) heart failure VTE Assessment - RISK FACTOR SCORE VTE RISK FACTOR SCORES: AGE OVER 60 YEARS, ACUTE RESPIRATORY FAILURE/SEVERE COPD - RISK VTE MODERATE RISK: SCORE OF 2 (RISK PROXIMAL DVT 2-4%) PROPHYAXIS NEEDED
[2018-09-20 13:43] LABS: BASOPHILS % 0.5 % (0.0-1.5); NEUTROPHILS # 5.6 # k/uL (1.4-7.7)
[2018-09-20] MEDS: methylPREDNISolone SOD SUCC 40 MG/ML VIAL IVP SCH ×2 (14:03→21:30)
[2018-09-20 14:05] LABS: eGFR (Non-African) 43
--- NOTE | 2018-09-20 16:15 | Diagnostic Imaging Report ---
JOEY ROSEN [facility] [address] [facility] [address] [address] Report Submission Date: Sep 20, 2018 4:14:31 PM CDT Patient Study Name: PATRICK MARTIN Date: Sep 20, 2018 2:46:00 PM CDT Modality Type: DX Gender: F Description: CHEST 2VIEW : 36 Institution: [facility] Physician: JOEY ROSEN Examination: PA and lateral chest. History: Evaluate lung vela. SOA Comparison exam: 09 August 2016 Findings: PA and lateral views of the chest demonstrates a normal cardiac and mediastinal silhouette. Chronic interstitial changes. Significant peripheral scarring. Continued blunting of the left lung base. New linear fullness involving the posterior lung vela: identified on lateral view. Articular degenerative changes. Impression: Chronic interstitial changes and scarring. New posterior linear fullness. Correlate with patient symptoms. Electronically signed on Sep 20, 2018 4:14:31 PM CDT by: Bautista HORAN
[2018-09-20] MEDS: IPRATROPIUM/ALBUTEROL SULFATE 3 ML AMPUL.NEB NEB SCH ×2 (18:02→21:30)
[2018-09-20] MEDS: ATORVASTATIN CALCIUM 20 MG TABLET PO SCH (21:31)
[2018-09-20] MEDS: SODIUM CHLORIDE 0.9 % (FLUSH) 10 ML DISP.SYRIN IV SCH (21:53)
[2018-09-21] MEDS: IPRATROPIUM/ALBUTEROL SULFATE 3 ML AMPUL.NEB NEB SCH ×6 (01:36→20:59)
[2018-09-21] MEDS: ENOXAPARIN SODIUM 40 MG/0.4 ML DISP.SYRIN SQ SCH (08:12)
[2018-09-21] MEDS: LISINOPRIL 10 MG TABLET PO SCH (08:12)
[2018-09-21] MEDS: FUROSEMIDE 40 MG TABLET PO SCH (08:12)
[2018-09-21] MEDS: CLOPIDOGREL BISULFATE 75 MG TABLET PO SCH (08:12)
[2018-09-21] MEDS: guaiFENesin 600 MG TAB.ER.12H PO SCH (08:12)
[2018-09-21] MEDS: SODIUM CHLORIDE 0.9 % (FLUSH) 10 ML DISP.SYRIN IV SCH ×2 (08:13→20:39)
[2018-09-21] MEDS: ASPIRIN 81 MG CHEW TAB PO SCH (08:13)
[2018-09-21] MEDS: PANTOPRAZOLE SODIUM 40 MG TABLET.DR PO SCH (08:13)
[2018-09-21] MEDS: methylPREDNISolone SOD SUCC 40 MG/ML VIAL IVP SCH ×2 (08:38→20:38)
--- NOTE | 2018-09-21 09:39 | Inpatient Progress Note ---
Subjective - Required Recertification Statement I anticipate X number of days because-include discharge plan: 1 day - Review of Systems Subjective: Patient stated her breathing does seem to be better today. Patient is due requiring oxygen at 2 L per nasal cannula in order to maintain SaO2 in an adequate level. Patient stated she did not feel as short of breath or [place] which she has been previously. General: Fatigue. Denies: Chills, Night Sweats Pulmonary: Dyspnea, Cough Objective - Exam Vitals and I&O: Vital Signs Temp 97.6 F 09/21/18 09:13 Pulse 103 H 09/21/18 09:13 Resp 22 09/21/18 09:13 BP 128/61 09/21/18 09:13 Pulse Ox 98 09/21/18 09:13 Intake & Output 09/20/18 09/20/18 09/21/18 11:59 23:59 11:59 Intake Total 10 290 440 Balance 10 290 440 Weight 78.471 kg 78.471 kg Intake: IV 10 Left AC 10 Oral 290 440 Other: Voiding Method Toilet Toilet # Voids 1 2 # Bowel Movements 0 General: Alert, Oriented to Person, Oriented to Place, Oriented to Time, Cooperative Neck: Supple, No JVD, No thyromegaly Lungs: Respiratory Distress (mild), Wheezes (improved), Rhonchi (bilat R>L) Cardiovascular: Regular rate, Normal S1, Normal S2 Abdomen: Normal bowel sounds, Soft, No tenderness, No hepatospenomegaly, No masses Skin: Normal, [place], Warm, Dry Neurological: Normal gait, Normal speech, Strength Equal Bilat, Sensation intact, Cranial nerves 3-12 NL Psych/Mental Status: Mental status NL - Results Results: Laboratory Results WBC 10.20 K/ul (4.00-12.00) 09/20/18 13:35 RBC 3.17 M/ul (3.90-5.20) L 09/20/18 13:35 Hgb 9.2 g/dL (11.5-16.0) L 09/20/18 13:35 Hct 27.5 % (34.5-46.5) L 09/20/18 13:35 MCV 87.0 fl (80.0-100.0) 09/20/18 13:35 MCH 29.0 pg (28.0-34.0) 09/20/18 13:35 MCHC 33.4 g/dL (30.0-36.0) 09/20/18 13:35 RDW 14.3 % (11.3-14.3) 09/20/18 13:35 Plt Count 450 K/mm3 (130-400) H 09/20/18 13:35 Neut % (Auto) 54.8 % (39.0-79.0) 09/20/18 13:35 Lymph % (Auto) 32.2 % (16.0-50.0) 09/20/18 13:35 Granite % (Auto) 5.3 % (0.0-11.0) 09/20/18 13:35 Eos % (Auto) 7.2 % (0.0-6.8) H 09/20/18 13:35 Baso % (Auto) 0.5 % (0.0-1.5) 09/20/18 13:35 Neut # (Auto) 5.6 # k/uL (1.4-7.7) 09/20/18 13:35 Lymph # (Auto) 3.3 # k/uL (0.6-4.0) 09/20/18 13:35 Granite # (Auto) 0.5 # k/uL (0.0-0.9) 09/20/18 13:35 Eos # (Auto) 0.7 # k/uL (0.0-0.6) H 09/20/18 13:35 Baso # (Auto) 0.1 # k/uL (0.0-0.5) 09/20/18 13:35 Sodium 140 mmol/L (137-145) 09/20/18 13:35 Potassium 3.8 mmol/L (3.5-5.1) 09/20/18 13:35 Chloride 104 mmol/L (98-107) 09/20/18 13:35 Carbon Dioxide 27 mmol/L (22-30) 09/20/18 13:35 Anion Gap 12.8 mmol/L (3-11) H 09/20/18 13:35 BUN 20 mg/dL (7-17) H 09/20/18 13:35 Creatinine 1.27 mg/dL (0.52-1.04) H 09/20/18 13:35 Estimated Creat Clear 51 09/20/18 13:35 Est GFR ( Amer) > 60 (60-) 09/20/18 13:35 Est GFR (Non-Af Amer) 43 (60-) L 09/20/18 13:35 Glucose 133 mg/dL (74-106) H 09/20/18 13:35 Calcium 9.3 mg/dL (8.4-10.2) 09/20/18 13:35 Total Bilirubin 0.4 mg/dL (0.2-1.3) 09/20/18 13:35 AST 30 U/L (15-46) 09/20/18 13:35 ALT < 6 U/L (13-69) L 09/20/18 13:35 Alkaline Phosphatase 88 U/L (38-126) 09/20/18 13:35 NT-Pro-B Natriuret Pep 407.1 pg/mL (11.1-450.0) 09/20/18 13:35 Total Protein 7.2 g/dL (6.3-8.2) 09/20/18 13:35 Albumin 3.9 g/dL (3.5-5.0) 09/20/18 13:35 Assessment/Plan - Assessment/Plan (1) COPD exacerbation Status: Chronic Current Visit: No Assessment: subjectively improved, continue with present medications (2) Hyperglycemia Status: Acute Current Visit: No (3) Congestive heart failure Status: Chronic Current Visit: No Qualifiers: Heart failure type: combined systolic and diastolic Heart failure chronicity: acute Qualified Code(s): I50.41 - Acute combined systolic (congestive) and diastolic (congestive) heart failure Assessment: stable
[2018-09-21] MEDS: ATORVASTATIN CALCIUM 20 MG TABLET PO SCH (20:39)
[2018-09-21] MEDS ORDERED: MELATONIN 3 MG TABLET PO SCH (21:00)
[2018-09-22] MEDS: IPRATROPIUM/ALBUTEROL SULFATE 3 ML AMPUL.NEB NEB SCH ×3 (02:12→09:43)
[2018-09-22] MEDS: FUROSEMIDE 40 MG TABLET PO SCH (09:19)
[2018-09-22] MEDS: CLOPIDOGREL BISULFATE 75 MG TABLET PO SCH (09:19)
[2018-09-22] MEDS: LISINOPRIL 10 MG TABLET PO SCH (09:19)
[2018-09-22] MEDS: PANTOPRAZOLE SODIUM 40 MG TABLET.DR PO SCH (09:19)
[2018-09-22] MEDS: guaiFENesin 600 MG TAB.ER.12H PO SCH (09:20)
[2018-09-22] MEDS: ASPIRIN 81 MG CHEW TAB PO SCH (09:20)
[2018-09-22] MEDS: ENOXAPARIN SODIUM 40 MG/0.4 ML DISP.SYRIN SQ SCH (09:20)
--- NOTE | 2018-09-22 09:23 | Discharge Summary ---
Discharge Summary - Discharge Sumary Admission Date: 09/20/18 (Acute) Discharge Date: 09/22/18 (Home) Discharge To: Home History of Present Illness: Has a history of COPD and chronic bronchiectasis stated she started having some increasing shortness of breath and dyspnea. Patient states she is been nausea which is usually assigned that she is developing some respiratory problems. Patient is had a low-grade fever denies any chills at this time. Patient does have a cough but is nonproductive in nature. Patient denies any chest pain or chest pressure. Patient is not had any hemoptysis. Patient has been complaining some increasing shortness of breath. Patient is had to start wearing her oxygen on a 24 hour basis in order to keep her SaO2 greater than 90%. Even with the oxygen at the drop down to 8788% when she is ambulating. Patient is not sleeping well secondary to her breathing problems. Patient was seen in the office was noted have a SaO2 89% at 2 L. Patient is usually on room air. Patient was subsequently admitted to the hospital for further care and evaluation. Condition at Discharge: Stable Home Medications: Ambulatory Orders Medication Instructions Recorded Magnesium, Aluminum Hydroxide 30 ml PO Q6 PRN udc 03/17/18 [Maalox] Clopidogrel Bisulfate [Clopidogrel] 75 mg PO DAILY 05/20/18 Aspirin 81 mg PO DAILY 09/20/18 Cetirizine HCl [Zyrtec] 10 mg PO DAILY 09/20/18 Furosemide [Lasix] 40 mg PO DAILY 09/20/18 Guaifenesin [Mucinex] 600 mg PO DAILY 09/20/18 Multivit-Min/Iron/Folic/Lutein 1 tab PO DAILY 09/20/18 [Centrum Silver Women Tablet] Consultations this Visit: None Procedures this Visit: None Allergies/Adverse Reactions: Allergies Allergy/AdvReac Type Severity Reaction Status Date / Time clindamycin Allergy Mild Generalized Verified 05/23/18 10:37 Redness cefadroxil hydrate Allergy Unknown Verified 05/23/18 10:37 [From Duricef] Cephalosporins Allergy Unknown Verified 05/23/18 10:37 Sulfa (Sulfonamide Allergy Unknown Verified 05/23/18 10:37 Antibiotics) [Sulfa(Sulfonamide Antibiotics)] Pork/Porcine Containing AdvReac Intermediate Abdominal Verified 05/23/18 10:37 Products Pain levofloxacin [From Levaquin] AdvReac Mild Nausea/Vomi Verified 05/23/18 10:37 ting Quinolones AdvReac Mild Nausea/Vomi Verified 05/23/18 10:37 ting Discharge Summary: Patient was admittd to acute care and started on supplemental oxygen to keep SAO2 > 90%. This requried 2 liters to do so. Patient was started on IV Solu- Medrol and DuoNeb treatments every four hours. Chest x-ray at the time of admission did not show any evidence of a pneumonia but did show some chronic int erstitial changes which were unchanged from previous x-rays. There is no evidence of any congestive heart failure. Patient WBC count on admission was normal. It was felt that the patient did not have an infection and subsequently was not started on any IV antibiotic therapy. Patient did improve and within 24 hours stated that her breathing did seem to be better in her lungs were not quite a tight and she was not quite as short of breath she was on admission. At the time of dismissal patient has been weaned off of oxygen therapy. Patient vital signs remain stable. [place] that the patient could be followed on an outpatient basis and patient was discharged in stable condition. - Final Diagnosis (1) COPD exacerbation Problems: Improved (2) Bronchiectasis Problems: stable (3) Hyperglycemia Problems: stable (4) Congestive heart failure Problems: stable
[2018-09-22] MEDS: methylPREDNISolone SOD SUCC 40 MG/ML VIAL IVP SCH (09:43)
[2018-09-22] MEDS: SODIUM CHLORIDE 0.9 % (FLUSH) 10 ML DISP.SYRIN IV SCH (09:55)
[2018-09-22 12:03] VITALS: BP 152/69
== END 2018-09-22 11:59 | disposition home or self-care (01) | DRG 191 ==
LOC: SOUTH 11:43
PROVIDERS: ADMIT Family Medicine; ATTEND Family Medicine
DX: J47.1 Bronchiectasis with (acute) exacerbation (principal); I50.42 Chronic combined systolic (congestive) and diastolic (congestive) heart failure; I11.0 Hypertensive heart disease with heart failure; R73.9 Hyperglycemia, unspecified; I25.10 Atherosclerotic heart disease of native coronary artery without angina pectoris; K21.9 Gastro-esophageal reflux disease without esophagitis; D47.3 Essential (hemorrhagic) thrombocythemia; D64.9 Anemia, unspecified; Z79.82 Long term (current) use of aspirin; Z79.02 Long term (current) use of antithrombotics/antiplatelets; Z79.899 Other long term (current) drug therapy; Z88.1 Allergy status to other antibiotic agents; Z88.2 Allergy status to sulfonamides; Z88.8 Allergy status to other drugs, medicaments and biological substances; Z91.018 Allergy to other foods; Z86.73 Personal history of transient ischemic attack (TIA), and cerebral infarction without residual deficits; Z90.49 Acquired absence of other specified parts of digestive tract; Z82.49 Family history of ischemic heart disease and other diseases of the circulatory system; Z82.5 Family history of asthma and other chronic lower respiratory diseases
CPT/HCPCS: 36415; 71046; 80053; 83880; 85025; 94640; 94760; J1030; J1650; 99222; J2920; S1016

== ENCOUNTER 2018-11-08 08:26 | Inpatient (IN) | payer MEDICARE, OTHER ==
--- NOTE | 2018-11-08 08:32 | ED Physician Documentation ---
General Adult - HISTORIAN Historian: patient - HPI Stated Complaint: cough and left lung pain Chief Complaint: Cough/ Upper Respiratory Onset: days ago (1) Timing: still present Severity: moderate Further Comments: yes (She states that starting yesterday she was possibly running a fever and noticed left lung pain with her cough. She has some mild shortness of air. "I get pneumonia a lot and that is what it feels like" she has not had any OTC meds this am. She did have two episodes of diarrhea yesterday. She did eat and drink normally. NO sick contacts) Last known Well Code/Unknown Code: Unknown - ROS CONST: no problems - PAST HX Past History: COPD, CHF, hypertension Allergies/Adverse Reactions: Allergies Allergy/AdvReac Type Severity Reaction Status Date / Time clindamycin Allergy Mild Generalized Verified 11/08/18 09:47 Redness cefadroxil hydrate Allergy Unknown Verified 11/08/18 09:47 [From Duricef] Cephalosporins Allergy Unknown Verified 11/08/18 09:47 Sulfa (Sulfonamide Allergy Unknown Verified 11/08/18 09:47 Antibiotics) [Sulfa(Sulfonamide Antibiotics)] Pork/Porcine Containing AdvReac Intermediate Abdominal Verified 11/08/18 09:47 Products Pain levofloxacin [From Levaquin] AdvReac Mild Nausea/Vomi Verified 11/08/18 09:47 ting Quinolones AdvReac Mild Nausea/Vomi Verified 11/08/18 09:47 ting Home Medications: Ambulatory Orders Medication Instructions Recorded Magnesium, Aluminum Hydroxide 30 ml PO Q6 PRN udc 03/17/18 [Maalox] Clopidogrel Bisulfate [Clopidogrel] 75 mg PO DAILY 05/20/18 Aspirin 81 mg PO DAILY 09/20/18 Cetirizine HCl [Zyrtec] 10 mg PO DAILY 09/20/18 Furosemide [Lasix] 40 mg PO DAILY 09/20/18 Guaifenesin [Mucinex] 600 mg PO DAILY 09/20/18 Multivit-Min/Iron/Folic/Lutein 1 tab PO DAILY 09/20/18 [Centrum Silver Women Tablet] - SOCIAL HX Smoking History: non-smoker Alcohol Use: none Drug Use: none - FAMILY HX Family History: No - VITAL SIGNS Vital Signs: Vital Signs Temp Pulse Resp BP Pulse Ox 152/69 09/22/18 11:11 - REVIEWED ASSESSMENTS Nursing Assessment Reviewed: Yes Vitals Reviewed: Yes Progress - Progress Progress: 1000: mild improvement in lung sounds post neb DG 1030: discussed case with Dr Stanton will admit inpt acute DG ED Results Lab/Radiology - Radiology Radiology Impressions: Exam: AP chest. History: Left-sided pain. The examination is compared to study dated September 20, 2018. Lung vela adequately aerated. Linear infiltrates in both lower lung vela is again identified. Blunting of the left costophrenic angle is unchanged. Heart and mediastinal contours are normal with atherosclerotic plaques seen in the aorta. Impression: Linear infiltrates in the lung bases bilaterally. Blunting of the left costophrenic angle is unchanged. Electronically signed on Nov 08, 2018 9:58:31 AM CDT by: Ovidio Low General Adult Physical Exam - PHYSICAL EXAM GENERAL APPEARANCE: no distress EENT: eye inspection normal, no signs of dehydration NECK: normal inspection RESPIRATORY: wheezes, rhonchi, other (speaks full sentences ) CVS: reg rate & rhythm, heart sounds normal, PMI nml ABDOMEN: soft, normal bowel sounds BACK: normal inspection, no CVA tenderness SKIN: warm/dry, normal color EXTREMITIES: non-tender, normal range of motion, no evidence of injury, edema NEURO: oriented X3 Discharge Clincal Impression: Pneumonia Referrals: Sincere Stanton MD [Primary Care Provider] - 2 Days Comments: Dr Stanton to admit inpt DG Condition: Stable Disposition: ADMITTED INPATIENT Decision to Admit: [id number] Date of Decison to Admit: 11/08/18 Decision Time: 10:31
[2018-11-08] MEDS ORDERED: IPRATROPIUM/ALBUTEROL SULFATE 3 ML AMPUL.NEB NEB ONE (08:39)
[2018-11-08 10:06] LABS: eGFR (Non-African) > 60
[2018-11-08 10:13] LABS: BASOPHILS % 0.7 % (0.0-1.5); BASOPHILS % 1 % (0-2); HYPOCHROMASIA 1+ (NEGATIVE); NEUTROPHILS # 14.1 # k/uL (1.4-7.7); SEGMENTED NEUTROPHILS % 67 % (39-79)
[2018-11-08] MEDS ORDERED: FUROSEMIDE 20 MG/2 ML VIAL IVP ONE (10:26)
[2018-11-08 11:30] LABS: APPEARANCE,URINE CLEAR (CLEAR); COLOR,URINE YELLOW (YELLOW); OCCULT BLOOD,URINE NEGATIVE (NEGATIVE); UROBILINOGEN URINE 0.2 Eu (0.2-1.0)
[2018-11-08 11:47] VITALS: BMI 33.0
--- NOTE | 2018-11-08 12:54 | History and Physical Report ---
History of Present Illnes - History of Present Illness Reason for Visit: dyspnea History of Present Illness: 78yo white female with a history of chronic recurrent pneumonias and chronic bronchiectasis. Patient states that yesterday she started running a low-grade fever, she started having a more intense cough than her baseline although it is nonproductive at this time. Patient has been having some intermittent chest pain associated with her coughing. Patient has been having increasing shortness of breath and dyspnea. Patient has been on oxygen intermittently in the past but is not on any oxygen therapy at this time. Patient has been nausea at time but no vomiting has been appreciated. Bowel limits have been normal. Patient subsequently came into the ED today. Patient was noted have a leukocytosis of 20,000. Chest x-ray showed some early infiltrates in the lower lobe bilaterally. patient had to be given supplemental oxygen in order to maintain her SaO2 greater than 92%. Patient was subsequently admitted to the hospital for further care and evaluation. - Past Medical History Cardiac: CAD, HTN Pulmonary: Asthma, COPD, Other (chronic bronchiectasis) [employer]: TIA Gastrointestinal: GERD Heme/Onc: Other (thrombocyotosis, anemia) - Past Surgical History Past Surgical History: Appendectomy, Cholecystectomy, Tonsillectomy, Other (D&C, toe fusion) - Past Social History Smoke: No Alcohol: None Drugs: None Lives: With Family Domestic Violence: Negative - Health Maintenance Health Maintenance: Cholesterol, Influenza Vaccine, Pneumococcal Vaccine Influenza Vaccine: No Pneumonia Vaccine: Yes Resuscitation Status: Resusciation Status Resuscitation Status Full Code Review of Systems - Review of Systems Constitutional: negative: Fever, Chills Eyes: negative: pain ENT: negative: Ear Pain, Ear Discharge, Nose Pain, Nose Discharge, Nose Congestion, Mouth Pain Respiratory: Cough, Dry, Shortness of Breath, SOB with Excertion, Pleuritic Pain, Wheezing. negative: Hemoptysis, Sputum Cardiovascular: Chest Pain (from coughing). negative: Palpitations, Orthopnea Gastrointestinal: Nausea. negative: Vomiting, Abdominal Pain Genitourinary: negative: Dysuria Musculoskeletal: negative: Neck Pain, Shoulder Pain, Arm Pain Skin: negative: Rash, Lesions, Jaundice Neurological: Numbness. negative: Weakness - Medications/Allergies Allergies/Adverse Reactions: Allergies Allergy/AdvReac Type Severity Reaction Status Date / Time clindamycin Allergy Mild Generalized Verified 11/08/18 09:47 Redness cefadroxil hydrate Allergy Unknown Verified 11/08/18 09:47 [From Duricef] Cephalosporins Allergy Unknown Verified 11/08/18 09:47 Sulfa (Sulfonamide Allergy Unknown Verified 11/08/18 09:47 Antibiotics) [Sulfa(Sulfonamide Antibiotics)] Pork/Porcine Containing AdvReac Intermediate Abdominal Verified 11/08/18 09:47 Products Pain levofloxacin [From Levaquin] AdvReac Mild Nausea/Vomi Verified 11/08/18 09:47 ting Quinolones AdvReac Mild Nausea/Vomi Verified 11/08/18 09:47 ting Current Inpatient Medications: Current Inpatient Medications Albuterol/Ipratropium (Duoneb) 3 ml NEB Q4 LUIS MIGUEL Stop: 12/08/18 12:59 Enoxaparin Sodium (Lovenox) 40 mg SQ DAILY LUIS MIGUEL Stop: 11/23/18 08:59 Levofloxacin/Dextrose (Levaquin) 500 mg IV DAILY LUIS MIGUEL Stop: 11/23/18 08:59 Exam - Exam Vital Signs: Vital Signs (72 hours) 11/08/18 11/08/18 11/08/18 08:26 08:38 09:38 Temperature 99.2 F Pulse Rate 103 H 98 H Pulse Rate [ Left] Pulse Rate [ 103 H Right Pulse ox] Respiratory 22 Rate Blood Pressure [Left Arm] Blood Pressure 118/55 [Right Arm] O2 Sat by Pulse 90 L Oximetry 11/08/18 11/08/18 11/08/18 10:50 11:00 11:21 Temperature 99.2 F 99.1 F Pulse Rate 96 H Pulse Rate [ 101 H Left] Pulse Rate [ 90 Right Pulse ox] Respiratory 20 24 Rate Blood Pressure 129/63 [Left Arm] Blood Pressure 118/62 [Right Arm] O2 Sat by Pulse 98 95 Oximetry 11/08/18 11/08/18 11:42 12:04 Temperature 99.1 F Pulse Rate 94 H Pulse Rate [ 101 H Left] Pulse Rate [ Right Pulse ox] Respiratory 24 Rate Blood Pressure 129/63 [Left Arm] Blood Pressure [Right Arm] O2 Sat by Pulse 95 95 Oximetry General: Alert, Oriented to Person, Oriented to Place, Oriented to Time, Cooperative, Mild distress HEENT: Atraumatic, PERRLA, EOMI, Mouth Mucous membr. moist/[place], Nose Mucous membr. moist/[place] Neck: Normal Range of Motion Carotids: WNL Thyroid: WNL Lungs: Normal air movement, Speaks full Sentences, Wheezes, Rales, Rhonchi (increased over her baseline) Cardiovascular: Regular rate, Normal S1, Normal S2, No murmurs Murmur: Systolic Murmur Heart Murmur Grade: III (high pitched) Abdomen: Normal bowel sounds, Soft, No tenderness, No hepatospenomegaly, No masses Integumentary: Normal, [place], Warm, Dry Extremities: No clubbing, No cyanosis, No edema, Normal pulses, No tenderness/swelling Neurological: Normal gait, Normal speech, Strength Equal Bilat, Normal tone, Sensation intact, Cranial nerves 3-12 NL, Reflexes 2+ Psych/Mental Status: Mental status NL, Mood NL, Appropriate Affect, Intact Judgment - Laboratory Results Laboratory Results: Laboratory Results 11/08/18 11/08/18 11/08/18 09:40 09:40 09:40 WBC 20.30 H RBC 3.41 L Hgb 9.9 L Hct 29.8 L MCV 87.0 MCH 29.2 MCHC 33.4 RDW 15.1 H Plt Count 442 H Neut % (Auto) 69.5 Lymph % (Auto) 21.1 [place] % (Auto) 5.3 Eos % (Auto) 3.4 Baso % (Auto) 0.7 Neut # (Auto) 14.1 H Lymph # (Auto) 4.3 H [place] # (Auto) 1.1 H Eos # (Auto) 0.7 H Baso # (Auto) 0.1 Seg Neutrophils % 67 Band Neutrophils % 5 Lymphocytes % 19 Monocytes % 6 Eosinophils % 2 Basophils % 1 Metamyelocytes % 1 H Large Platelets Present H Plt Morphology Comment Abnormal H Hypochromasia 1+ H RBC Morph Comment Abnormal H Sodium 141 Potassium 4.2 Chloride 102 Carbon Dioxide 27 Anion Gap 16.2 BUN 12 Creatinine 0.71 Estimated Creat Clear 95 Est GFR ( Amer) > 60 Est GFR (Non-Af Amer) > 60 Glucose 130 H Calcium 9.0 Total Bilirubin 0.5 AST 50 H ALT 10 L Alkaline Phosphatase 91 NT-Pro-B Natriuret Pep 1726.9 H Total Protein 6.9 Albumin 3.8 Urine Color Urine Appearance Urine pH Ur Specific [place] Urine Protein Urine Ketones Urine Occult Blood Urine Nitrite Urine Bilirubin Urine Urobilinogen Ur Leukocyte Esterase Urine Glucose 09/16/19 11:24 WBC RBC Hgb Hct MCV MCH MCHC RDW Plt Count Neut % (Auto) Lymph % (Auto) [place] % (Auto) Eos % (Auto) Baso % (Auto) Neut # (Auto) Lymph # (Auto) [place] # (Auto) Eos # (Auto) Baso # (Auto) Seg Neutrophils % Band Neutrophils % Lymphocytes % Monocytes % Eosinophils % Basophils % Metamyelocytes % Large Platelets Plt Morphology Comment Hypochromasia RBC Morph Comment Sodium Potassium Chloride Carbon Dioxide Anion Gap BUN Creatinine Estimated Creat Clear Est GFR ( Amer) Est GFR (Non-Af Amer) Glucose Calcium Total Bilirubin AST ALT Alkaline Phosphatase NT-Pro-B Natriuret Pep Total Protein Albumin Urine Color Yellow Urine Appearance Clear Urine pH 7.0 Ur Specific [place] 1.015 Urine Protein Negative Urine Ketones Negative Urine Occult Blood Negative Urine Nitrite Negative Urine Bilirubin Negative Urine Urobilinogen 0.2 Ur Leukocyte Esterase Negative Urine Glucose Negative Assessment/Plan - Assessment/Plan (1) Pneumonia Status: Acute Current Visit: Yes Assessment: I will start just one antibiotic since she has been exposed to a lot of antibiotics. Will start neb treatments and IV steroids. Supplemental oxygen to keep SAO2 > 92%. (2) Acute exacerbation of bronchiectasis Status: Acute Current Visit: No Assessment: as above (3) Dyspnea on exertion Status: Chronic Current Visit: No (4) Hyperglycemia Status: Chronic Current Visit: No Assessment: will monitor with steroids (5) Congestive heart failure Status: Chronic Current Visit: No Qualifiers: Heart failure type: combined systolic and diastolic Heart failure chronicity: acute Qualified Code(s): I50.41 - Acute combined systolic (congestive) and diastolic (congestive) heart failure Assessment: stable (6) Essential hypertension Status: Chronic Current Visit: No Assessment: stable on home medications VTE Assessment - RISK FACTOR SCORE VTE RISK FACTOR SCORES: AGE OVER 60 YEARS, ACUTE RESPIRATORY FAILURE/SEVERE COPD, ANTICIPATED BED CONFINEMENT OR IMMOBILIZATION > 24 HOURS - RISK VTE HIGH RISK: SCORE OF 3-4 (RISK PROXIMAL DVT 4-8%) PROPHYLAXIS NEEDED
[2018-11-08] MEDS: IPRATROPIUM/ALBUTEROL SULFATE 3 ML AMPUL.NEB NEB SCH ×3 (13:10→21:11)
[2018-11-08] MEDS ORDERED: methylPREDNISolone SOD SUCC 40 MG/ML VIAL ONE (13:27)
[2018-11-08] MEDS ORDERED: MAG HYDROX/ALUMINUM HYD/SIMETH 30 ML UDC PO PRN (13:30)
[2018-11-08] MEDS: methylPREDNISolone SOD SUCC 40 MG/ML VIAL IVP SCH ×2 (13:33→21:09)
[2018-11-08] MEDS: ATORVASTATIN CALCIUM 20 MG TABLET PO SCH (21:03)
[2018-11-08] MEDS: SODIUM CHLORIDE 0.9 % (FLUSH) 10 ML DISP.SYRIN IV SCH (21:28)
[2018-11-09] MEDS: IPRATROPIUM/ALBUTEROL SULFATE 3 ML AMPUL.NEB NEB SCH ×6 (02:29→20:51)
[2018-11-09] MEDS: PANTOPRAZOLE SODIUM 40 MG TABLET.DR PO SCH (06:38)
[2018-11-09 07:10] LABS: BASOPHILS % 0.3 % (0.0-1.5); NEUTROPHILS # 9.1 # k/uL (1.4-7.7)
[2018-11-09 07:21] LABS: eGFR (Non-African) > 60
[2018-11-09] MEDS: ENOXAPARIN SODIUM 40 MG/0.4 ML DISP.SYRIN SQ SCH (09:48)
[2018-11-09] MEDS: ASPIRIN 81 MG CHEW TAB PO SCH (09:49)
[2018-11-09] MEDS: CLOPIDOGREL BISULFATE 75 MG TABLET PO SCH (09:49)
[2018-11-09] MEDS: FUROSEMIDE 40 MG TABLET PO SCH (09:49)
[2018-11-09] MEDS: LISINOPRIL 10 MG TABLET PO SCH (09:49)
[2018-11-09] MEDS: SODIUM CHLORIDE 0.9 % (FLUSH) 10 ML DISP.SYRIN IV SCH ×2 (09:50→22:34)
[2018-11-09] MEDS: methylPREDNISolone SOD SUCC 40 MG/ML VIAL IVP SCH ×2 (10:00→20:46)
[2018-11-09] MEDS: guaiFENesin 600 MG TAB.ER.12H PO SCH (10:06)
[2018-11-09] MEDS: ATORVASTATIN CALCIUM 20 MG TABLET PO SCH (20:46)
[2018-11-10] MEDS: IPRATROPIUM/ALBUTEROL SULFATE 3 ML AMPUL.NEB NEB SCH ×5 (00:51→23:54)
[2018-11-10] MEDS: PANTOPRAZOLE SODIUM 40 MG TABLET.DR PO SCH (06:37)
[2018-11-10] MEDS: ENOXAPARIN SODIUM 40 MG/0.4 ML DISP.SYRIN SQ SCH (09:11)
[2018-11-10] MEDS: CLOPIDOGREL BISULFATE 75 MG TABLET PO SCH (09:13)
[2018-11-10] MEDS: FUROSEMIDE 40 MG TABLET PO SCH (09:13)
[2018-11-10] MEDS: guaiFENesin 600 MG TAB.ER.12H PO SCH (09:13)
[2018-11-10] MEDS: ASPIRIN 81 MG CHEW TAB PO SCH (09:13)
[2018-11-10] MEDS: LISINOPRIL 10 MG TABLET PO SCH (09:13)
[2018-11-10] MEDS: methylPREDNISolone SOD SUCC 40 MG/ML VIAL IVP SCH (09:15)
[2018-11-10] MEDS: FLUTICASONE/SALMETEROL 250-50 INHALER IH SCH ×2 (09:16→20:21)
[2018-11-10] MEDS: AZITHROMYCIN 500 MG in 0.9 % SODIUM CHLORIDE 250 ML IV SCH (09:25)
[2018-11-10] MEDS ORDERED: 0.9 % SODIUM CHLORIDE 100 ML IV ONE ×2 (11:51→13:05)
[2018-11-10] MEDS ORDERED: AZITHROMYCIN 500 MG VIAL IV ONE (13:05)
[2018-11-10] MEDS ORDERED: methylPREDNISolone SOD SUCC 40 MG/ML VIAL IVP SCH (14:00)
--- NOTE | 2018-11-10 14:59 | Diagnostic Imaging Report ---
LAUREN STANTON [facility] [id number] [facility] [address] [place], [place]. [address] Report Submission Date: Nov 08, 2018 9:58:31 AM CDT Patient Study Name: PATRICK MARTIN Date: Nov 08, 2018 8:33:11 AM CDT Modality Type: DX Gender: F Description: CHEST 1VIEW : 36 Institution: [facility] Physician: LAUREN STANTON Exam: AP chest. History: Left-sided pain. The examination is compared to study dated September 20, 2018. Lung vela adequately aerated. Linear infiltrates in both lower lung vela is again identified. Blunting of the left costophrenic angle is unchanged. Heart and mediastinal contours are normal with atherosclerotic plaques seen in the aorta. Impression: Linear infiltrates in the lung bases bilaterally. Blunting of the left costophrenic angle is unchanged. Electronically signed on Nov 08, 2018 9:58:31 AM CDT by: Ovidio HORAN
[2018-11-10] MEDS: ATORVASTATIN CALCIUM 20 MG TABLET PO SCH (20:21)
[2018-11-11] MEDS: PANTOPRAZOLE SODIUM 40 MG TABLET.DR PO SCH (05:49)
[2018-11-11] MEDS: IPRATROPIUM/ALBUTEROL SULFATE 3 ML AMPUL.NEB NEB SCH ×4 (05:49→23:52)
[2018-11-11 06:32] LABS: eGFR (Non-African) > 60
[2018-11-11 06:33] LABS: BASOPHILS % 0.7 % (0.0-1.5); NEUTROPHILS # 11.2 # k/uL (1.4-7.7)
--- NOTE | 2018-11-11 07:22 | Inpatient Progress Note ---
Subjective - Required Recertification Statement I anticipate X number of days because-include discharge plan: 2 days - Review of Systems Events since last encounter: Patient states that he is feeling much better at this time. Breathing is better but not at baseline yet. Slept better last noc. Appetite is good. No further nausea noted. General: Denies: Chills, Night Sweats HEENT: Denies: Head Aches Pulmonary: Dyspnea, Cough Cardiovascular: Denies: Chest Pain, Palpitations Gastrointestinal: Denies: Nausea Objective - Exam Vitals and I&O: Vital Signs Temp 97.4 F L 11/11/18 05:44 Pulse 83 11/11/18 05:44 Resp 20 11/11/18 05:44 BP 123/64 11/11/18 05:44 Pulse Ox 97 11/11/18 05:44 Intake & Output 11/10/18 11/10/18 11/11/18 11:59 23:59 11:59 Intake Total 200 480 Balance 200 480 Intake: Oral 200 480 Other: Voiding Method Toilet Toilet Toilet # Voids 3 # Bowel Movements 0 General: Alert, Oriented to Person, Oriented to Place, Oriented to Time, Obese Neck: Supple Lungs: Wheezes, Rhonchi (course bilateral but improved) Cardiovascular: Regular rate, Normal S1, Normal S2 Abdomen: Normal bowel sounds, Soft, No tenderness Skin: Normal, [place], Warm, Dry - Results Results: Laboratory Results WBC 17.00 K/ul (4.00-12.00) H 11/11/18 06:00 RBC 3.69 M/ul (3.90-5.20) L 11/11/18 06:00 Hgb 10.6 g/dL (11.5-16.0) L 11/11/18 06:00 Hct 32.2 % (34.5-46.5) L 11/11/18 06:00 MCV 87.0 fl (80.0-100.0) 11/11/18 06:00 MCH 28.9 pg (28.0-34.0) 11/11/18 06:00 MCHC 33.1 g/dL (30.0-36.0) 11/11/18 06:00 RDW 15.1 % (11.3-14.3) H 11/11/18 06:00 Plt Count 470 K/mm3 (130-400) H 11/11/18 06:00 Neut % (Auto) 66.2 % (39.0-79.0) 11/11/18 06:00 Lymph % (Auto) 25.3 % (16.0-50.0) 11/11/18 06:00 [place] % (Auto) 7.1 % (0.0-11.0) 11/11/18 06:00 Eos % (Auto) 0.7 % (0.0-6.8) 11/11/18 06:00 Baso % (Auto) 0.7 % (0.0-1.5) 11/11/18 06:00 Neut # (Auto) 11.2 # k/uL (1.4-7.7) H 11/11/18 06:00 Lymph # (Auto) 4.3 # k/uL (0.6-4.0) H 11/11/18 06:00 [place] # (Auto) 1.2 # k/uL (0.0-0.9) H 11/11/18 06:00 Eos # (Auto) 0.1 # k/uL (0.0-0.6) 11/11/18 06:00 Baso # (Auto) 0.1 # k/uL (0.0-0.5) 11/11/18 06:00 Seg Neutrophils % 67 % (39-79) 11/08/18 09:40 Band Neutrophils % 5 % (0-12) 11/08/18 09:40 Lymphocytes % 19 % (16-50) 11/08/18 09:40 Monocytes % 6 % (0-11) 11/08/18 09:40 Eosinophils % 2 % (0-7) 11/08/18 09:40 Basophils % 1 % (0-2) 11/08/18 09:40 Metamyelocytes % 1 % (0-0) H 11/08/18 09:40 Large Platelets Present (NEGATIVE) H 11/08/18 09:40 Plt Morphology Comment Abnormal (NORMAL) H 11/08/18 09:40 Hypochromasia 1+ (NEGATIVE) H 11/08/18 09:40 RBC Morph Comment Abnormal (NORMAL) H 11/08/18 09:40 Sodium 143 mmol/L (137-145) 11/11/18 06:00 Potassium 3.6 mmol/L (3.5-5.1) 11/11/18 06:00 Chloride 103 mmol/L (98-107) 11/11/18 06:00 Carbon Dioxide 27 mmol/L (22-30) 11/11/18 06:00 Anion Gap 16.6 11/11/18 06:00 BUN 31 mg/dL (7-17) H 11/11/18 06:00 Creatinine 1.00 mg/dL (0.52-1.04) 11/11/18 06:00 Estimated Creat Clear 68 11/11/18 06:00 Est GFR ( Amer) > 60 (60-) 11/11/18 06:00 Est GFR (Non-Af Amer) > 60 (60-) 11/11/18 06:00 Glucose 89 mg/dL (74-106) 11/11/18 06:00 Calcium 9.3 mg/dL (8.4-10.2) 11/11/18 06:00 Total Bilirubin 0.1 mg/dL (0.2-1.3) L 11/11/18 06:00 AST 34 U/L (15-46) 11/11/18 06:00 ALT 9 U/L (13-69) L 11/11/18 06:00 Alkaline Phosphatase 67 U/L (38-126) 11/11/18 06:00 NT-Pro-B Natriuret Pep 1726.9 pg/mL (11.1-450.0) H 11/08/18 09:40 Total Protein 7.0 g/dL (6.3-8.2) 11/11/18 06:00 Albumin 3.8 g/dL (3.5-5.0) 11/11/18 06:00 Urine Color Yellow (YELLOW) 11/08/18 11:24 Urine Appearance Clear (CLEAR) 11/08/18 11:24 Urine pH 7.0 (5.0 - 8.0) 11/08/18 11:24 Ur Specific [place] 1.015 (1.010-1.030) 11/08/18 11:24 Urine Protein Negative mg/dL (NEGATIVE) 11/08/18 11:24 Urine Ketones Negative mg/dL (NEGATIVE) 11/08/18 11:24 Urine Occult Blood Negative (NEGATIVE) 11/08/18 11:24 Urine Nitrite Negative (NEGATIVE) 11/08/18 11:24 Urine Bilirubin Negative (NEGATIVE) 11/08/18 11:24 Urine Urobilinogen 0.2 Eu (0.2-1.0) 11/08/18 11:24 Ur Leukocyte Esterase Negative (NEGATIVE) 11/08/18 11:24 Urine Glucose Negative mg/dL (NEGATIVE) 11/08/18 11:24 Assessment/Plan - Assessment/Plan (1) Pneumonia Status: Acute Current Visit: Yes Assessment: improved, will continue with present treatment (2) Acute exacerbation of bronchiectasis Status: Acute Current Visit: No (3) Dyspnea on exertion Status: Chronic Current Visit: No (4) Hyperglycemia Status: Chronic Current Visit: No (5) Congestive heart failure Status: Chronic Current Visit: No Qualifiers: Heart failure type: combined systolic and diastolic Heart failure chronicity: acute Qualified Code(s): I50.41 - Acute combined systolic (congestive) and diastolic (congestive) heart failure (6) Essential hypertension Status: Chronic Current Visit: No
--- NOTE | 2018-11-11 07:25 | Inpatient Progress Note ---
Subjective - Required Recertification Statement I anticipate X number of days because-include discharge plan: 1-2 days - Review of Systems Events since last encounter: Lola states that she is feeling worse today. Feels that her chest is tighter . Cough has become productive some of brown phlegm. No blood noted. She did not sleep well last noc due to steroids hypering her up. Has had some left shoulder and chest pain felt to be related to arthritis and would like warm compress tot he shoulder area. General: Denies: Chills Cardiovascular: Chest Pain (with coughing). Denies: Palpitations, Orthopnea Gastrointestinal: Denies: Nausea, Vomiting, Abdominal Pain Genitourinary: Denies: Dysuria, Frequency, Incontinence Objective - Exam Vitals and I&O: Vital Signs Temp 97.4 F L 11/11/18 05:44 Pulse 83 11/11/18 05:44 Resp 20 11/11/18 05:44 BP 123/64 11/11/18 05:44 Pulse Ox 97 11/11/18 05:44 Intake & Output 11/10/18 11/10/18 11/11/18 11:59 23:59 11:59 Intake Total 200 480 Balance 200 480 Intake: Oral 200 480 Other: Voiding Method Toilet Toilet Toilet # Voids 3 # Bowel Movements 0 General: Alert, Oriented to Person, Oriented to Place, Oriented to Time, Cooperative HEENT: Atraumatic, PERRLA, EOMI, Mouth Mucous membr. moist/[place], Nose Mucous membr. moist/[place] Neck: Supple, No JVD, No thyromegaly Lungs: Speaks full Sentences, Wheezes, Rhonchi, Chest Wall Tenderness (anterior) Cardiovascular: Regular rate (gets tachy at time with nebs), Murmur Abdomen: Normal bowel sounds, Soft, No tenderness, No hepatospenomegaly Extremities: No clubbing, No cyanosis, No edema, Normal pulses Skin: Normal, [place], Warm, Dry - Results Results: Laboratory Results WBC 17.00 K/ul (4.00-12.00) H 11/11/18 06:00 RBC 3.69 M/ul (3.90-5.20) L 11/11/18 06:00 Hgb 10.6 g/dL (11.5-16.0) L 11/11/18 06:00 Hct 32.2 % (34.5-46.5) L 11/11/18 06:00 MCV 87.0 fl (80.0-100.0) 11/11/18 06:00 MCH 28.9 pg (28.0-34.0) 11/11/18 06:00 MCHC 33.1 g/dL (30.0-36.0) 11/11/18 06:00 RDW 15.1 % (11.3-14.3) H 11/11/18 06:00 Plt Count 470 K/mm3 (130-400) H 11/11/18 06:00 Neut % (Auto) 66.2 % (39.0-79.0) 11/11/18 06:00 Lymph % (Auto) 25.3 % (16.0-50.0) 11/11/18 06:00 [place] % (Auto) 7.1 % (0.0-11.0) 11/11/18 06:00 Eos % (Auto) 0.7 % (0.0-6.8) 11/11/18 06:00 Baso % (Auto) 0.7 % (0.0-1.5) 11/11/18 06:00 Neut # (Auto) 11.2 # k/uL (1.4-7.7) H 11/11/18 06:00 Lymph # (Auto) 4.3 # k/uL (0.6-4.0) H 11/11/18 06:00 [place] # (Auto) 1.2 # k/uL (0.0-0.9) H 11/11/18 06:00 Eos # (Auto) 0.1 # k/uL (0.0-0.6) 11/11/18 06:00 Baso # (Auto) 0.1 # k/uL (0.0-0.5) 11/11/18 06:00 Seg Neutrophils % 67 % (39-79) 11/08/18 09:40 Band Neutrophils % 5 % (0-12) 11/08/18 09:40 Lymphocytes % 19 % (16-50) 11/08/18 09:40 Monocytes % 6 % (0-11) 11/08/18 09:40 Eosinophils % 2 % (0-7) 11/08/18 09:40 Basophils % 1 % (0-2) 11/08/18 09:40 Metamyelocytes % 1 % (0-0) H 11/08/18 09:40 Large Platelets Present (NEGATIVE) H 11/08/18 09:40 Plt Morphology Comment Abnormal (NORMAL) H 11/08/18 09:40 Hypochromasia 1+ (NEGATIVE) H 11/08/18 09:40 RBC Morph Comment Abnormal (NORMAL) H 11/08/18 09:40 Sodium 143 mmol/L (137-145) 11/11/18 06:00 Potassium 3.6 mmol/L (3.5-5.1) 11/11/18 06:00 Chloride 103 mmol/L (98-107) 11/11/18 06:00 Carbon Dioxide 27 mmol/L (22-30) 11/11/18 06:00 Anion Gap 16.6 11/11/18 06:00 BUN 31 mg/dL (7-17) H 11/11/18 06:00 Creatinine 1.00 mg/dL (0.52-1.04) 11/11/18 06:00 Estimated Creat Clear 68 11/11/18 06:00 Est GFR ( Amer) > 60 (60-) 11/11/18 06:00 Est GFR (Non-Af Amer) > 60 (60-) 11/11/18 06:00 Glucose 89 mg/dL (74-106) 11/11/18 06:00 Calcium 9.3 mg/dL (8.4-10.2) 11/11/18 06:00 Total Bilirubin 0.1 mg/dL (0.2-1.3) L 11/11/18 06:00 AST 34 U/L (15-46) 11/11/18 06:00 ALT 9 U/L (13-69) L 11/11/18 06:00 Alkaline Phosphatase 67 U/L (38-126) 11/11/18 06:00 NT-Pro-B Natriuret Pep 1726.9 pg/mL (11.1-450.0) H 11/08/18 09:40 Total Protein 7.0 g/dL (6.3-8.2) 11/11/18 06:00 Albumin 3.8 g/dL (3.5-5.0) 11/11/18 06:00 Urine Color Yellow (YELLOW) 11/08/18 11:24 Urine Appearance Clear (CLEAR) 11/08/18 11:24 Urine pH 7.0 (5.0 - 8.0) 11/08/18 11:24 Ur Specific [place] 1.015 (1.010-1.030) 11/08/18 11:24 Urine Protein Negative mg/dL (NEGATIVE) 11/08/18 11:24 Urine Ketones Negative mg/dL (NEGATIVE) 11/08/18 11:24 Urine Occult Blood Negative (NEGATIVE) 11/08/18 11:24 Urine Nitrite Negative (NEGATIVE) 11/08/18 11:24 Urine Bilirubin Negative (NEGATIVE) 11/08/18 11:24 Urine Urobilinogen 0.2 Eu (0.2-1.0) 11/08/18 11:24 Ur Leukocyte Esterase Negative (NEGATIVE) 11/08/18 11:24 Urine Glucose Negative mg/dL (NEGATIVE) 11/08/18 11:24 Assessment/Plan - Assessment/Plan (1) Pneumonia Status: Acute Current Visit: Yes Assessment: Patient is not doing as well today as yesterday. I will add second antibiotic. I will stop IV fluids. Patient has a history of CHF. (2) Acute exacerbation of bronchiectasis Status: Acute Current Visit: No Assessment: seems to be worse today, may be because she is hydrated more at this time. Will continue with current therapy. I will change time of PM duoneb. (3) Dyspnea on exertion Status: Chronic Current Visit: No (4) Hyperglycemia Status: Chronic Current Visit: No (5) Congestive heart failure Status: Chronic Current Visit: No Qualifiers: Heart failure type: combined systolic and diastolic Heart failure chronicity: acute Qualified Code(s): I50.41 - Acute combined systolic (congestive) and diastolic (congestive) heart failure (6) Essential hypertension Status: Chronic Current Visit: No (7) Left shoulder pain Status: Acute Current Visit: Yes Assessment: Will start K pad which has helped in the past.
[2018-11-11] MEDS: AZITHROMYCIN 500 MG in 0.9 % SODIUM CHLORIDE 250 ML IV SCH (08:02)
[2018-11-11] MEDS: CLOPIDOGREL BISULFATE 75 MG TABLET PO SCH (08:59)
[2018-11-11] MEDS: FUROSEMIDE 40 MG TABLET PO SCH (08:59)
[2018-11-11] MEDS: ASPIRIN 81 MG CHEW TAB PO SCH (09:00)
[2018-11-11] MEDS: guaiFENesin 600 MG TAB.ER.12H PO SCH (09:00)
[2018-11-11] MEDS: ENOXAPARIN SODIUM 40 MG/0.4 ML DISP.SYRIN SQ SCH (09:00)
[2018-11-11] MEDS: LISINOPRIL 10 MG TABLET PO SCH (09:00)
[2018-11-11] MEDS: FLUTICASONE/SALMETEROL 250-50 INHALER IH SCH ×2 (10:02→21:22)
[2018-11-11] MEDS: methylPREDNISolone SOD SUCC 40 MG/ML VIAL IVP SCH (10:04)
--- NOTE | 2018-11-11 11:27 | Inpatient Progress Note ---
Subjective - Required Recertification Statement I anticipate X number of days because-include discharge plan: 1 - Review of Systems Events since last encounter: Patient is feeling better this morning- she still feels like she has some congestion but feels that it is starting to break up more. She states that she feels better than yesterday. She feels that she could go home today and feels that she would sleep better at home. Patient has some congestion still noted throughout. Patient was started on second antibiotic- will get chest xray and re-evaluate discharge. 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 Patient has been encouraged to use incentive spirometry frequently. Patient and spouse agree with plan of care. General: Fatigue HEENT: Denies: Eye Pain, Ear Pain, Dysphasia, Sore Throat Pulmonary: Cough Cardiovascular: Denies: Chest Pain Gastrointestinal: Denies: Nausea, Vomiting, Abdominal Pain Genitourinary: Denies: Dysuria Musculoskeletal: Shoulder Pain (improving) Neurological: Denies: Weakness Objective - Exam Vitals and I&O: Vital Signs Temp 97.7 F 11/11/18 07:22 Pulse 98 H 11/11/18 07:22 Resp 20 11/11/18 07:22 BP 135/70 11/11/18 07:22 Pulse Ox 98 11/11/18 10:00 Intake & Output 11/10/18 11/10/18 11/11/18 11:59 23:59 11:59 Intake Total 200 480 240 Balance 200 480 240 Intake: Oral 200 480 240 Other: Voiding Method Toilet Toilet Toilet # Voids 3 # Bowel Movements 0 General: Alert, Oriented to Person, Oriented to Place, Oriented to Time, Cooperative, Obese HEENT: Atraumatic, PERRLA, Mouth Mucous membr. moist/[place], Nose Mucous membr. moist/[place] Neck: +2 carotid pulse wo bruit Lungs: Normal air movement, Speaks full Sentences, Rhonchi Cardiovascular: Normal S1, Normal S2 Abdomen: Normal bowel sounds, Soft Extremities: No edema, Normal pulses Skin: Normal, [place], Warm, Dry Neurological: Normal gait, Normal speech, Strength Equal Bilat Psych/Mental Status: Mental status NL, Mood NL, Appropriate Affect, Intact Judgment - Results Results: Laboratory Results WBC 17.00 K/ul (4.00-12.00) H 11/11/18 06:00 RBC 3.69 M/ul (3.90-5.20) L 11/11/18 06:00 Hgb 10.6 g/dL (11.5-16.0) L 11/11/18 06:00 Hct 32.2 % (34.5-46.5) L 11/11/18 06:00 MCV 87.0 fl (80.0-100.0) 11/11/18 06:00 MCH 28.9 pg (28.0-34.0) 11/11/18 06:00 MCHC 33.1 g/dL (30.0-36.0) 11/11/18 06:00 RDW 15.1 % (11.3-14.3) H 11/11/18 06:00 Plt Count 470 K/mm3 (130-400) H 11/11/18 06:00 Neut % (Auto) 66.2 % (39.0-79.0) 11/11/18 06:00 Lymph % (Auto) 25.3 % (16.0-50.0) 11/11/18 06:00 [place] % (Auto) 7.1 % (0.0-11.0) 11/11/18 06:00 Eos % (Auto) 0.7 % (0.0-6.8) 11/11/18 06:00 Baso % (Auto) 0.7 % (0.0-1.5) 11/11/18 06:00 Neut # (Auto) 11.2 # k/uL (1.4-7.7) H 11/11/18 06:00 Lymph # (Auto) 4.3 # k/uL (0.6-4.0) H 11/11/18 06:00 [place] # (Auto) 1.2 # k/uL (0.0-0.9) H 11/11/18 06:00 Eos # (Auto) 0.1 # k/uL (0.0-0.6) 11/11/18 06:00 Baso # (Auto) 0.1 # k/uL (0.0-0.5) 11/11/18 06:00 Seg Neutrophils % 67 % (39-79) 11/08/18 09:40 Band Neutrophils % 5 % (0-12) 11/08/18 09:40 Lymphocytes % 19 % (16-50) 11/08/18 09:40 Monocytes % 6 % (0-11) 11/08/18 09:40 Eosinophils % 2 % (0-7) 11/08/18 09:40 Basophils % 1 % (0-2) 11/08/18 09:40 Metamyelocytes % 1 % (0-0) H 11/08/18 09:40 Large Platelets Present (NEGATIVE) H 11/08/18 09:40 Plt Morphology Comment Abnormal (NORMAL) H 11/08/18 09:40 Hypochromasia 1+ (NEGATIVE) H 11/08/18 09:40 RBC Morph Comment Abnormal (NORMAL) H 11/08/18 09:40 Sodium 143 mmol/L (137-145) 11/11/18 06:00 Potassium 3.6 mmol/L (3.5-5.1) 11/11/18 06:00 Chloride 103 mmol/L (98-107) 11/11/18 06:00 Carbon Dioxide 27 mmol/L (22-30) 11/11/18 06:00 Anion Gap 16.6 11/11/18 06:00 BUN 31 mg/dL (7-17) H 11/11/18 06:00 Creatinine 1.00 mg/dL (0.52-1.04) 11/11/18 06:00 Estimated Creat Clear 68 11/11/18 06:00 Est GFR ( Amer) > 60 (60-) 11/11/18 06:00 Est GFR (Non-Af Amer) > 60 (60-) 11/11/18 06:00 Glucose 89 mg/dL (74-106) 11/11/18 06:00 Calcium 9.3 mg/dL (8.4-10.2) 11/11/18 06:00 Total Bilirubin 0.1 mg/dL (0.2-1.3) L 11/11/18 06:00 AST 34 U/L (15-46) 11/11/18 06:00 ALT 9 U/L (13-69) L 11/11/18 06:00 Alkaline Phosphatase 67 U/L (38-126) 11/11/18 06:00 NT-Pro-B Natriuret Pep 1726.9 pg/mL (11.1-450.0) H 11/08/18 09:40 Total Protein 7.0 g/dL (6.3-8.2) 11/11/18 06:00 Albumin 3.8 g/dL (3.5-5.0) 11/11/18 06:00 Urine Color Yellow (YELLOW) 11/08/18 11:24 Urine Appearance Clear (CLEAR) 11/08/18 11:24 Urine pH 7.0 (5.0 - 8.0) 11/08/18 11:24 Ur Specific [place] 1.015 (1.010-1.030) 11/08/18 11:24 Urine Protein Negative mg/dL (NEGATIVE) 11/08/18 11:24 Urine Ketones Negative mg/dL (NEGATIVE) 11/08/18 11:24 Urine Occult Blood Negative (NEGATIVE) 11/08/18 11:24 Urine Nitrite Negative (NEGATIVE) 11/08/18 11:24 Urine Bilirubin Negative (NEGATIVE) 11/08/18 11:24 Urine Urobilinogen 0.2 Eu (0.2-1.0) 11/08/18 11:24 Ur Leukocyte Esterase Negative (NEGATIVE) 11/08/18 11:24 Urine Glucose Negative mg/dL (NEGATIVE) 11/08/18 11:24 Assessment/Plan - Assessment/Plan (1) Pneumonia Status: Acute Current Visit: Yes Assessment: Patient is doing better today. Patient on 2 antibiotic. IV fluids were stopped yesterday due to patient having CHF. (2) Acute exacerbation of bronchiectasis Status: Acute Current Visit: No Plan: Symptoms seem to better today- was having problems yesterday. Will continue with current therapy. (3) Hyperglycemia Status: Chronic Current Visit: No Assessment: Blood sugar was 89 this morning (4) Congestive heart failure Status: Chronic Current Visit: No Qualifiers: Heart failure type: combined systolic and diastolic Heart failure chronicity: acute Qualified Code(s): I50.41 - Acute combined systolic (congestive) and diastolic (congestive) heart failure Plan: Stable (5) Left shoulder pain Status: Acute Current Visit: Yes Assessment: Feeling better today (6) Essential hypertension Status: Chronic Current Visit: No Assessment: Blood pressure 135/70 Plan: Stable will continue home meds
--- NOTE | 2018-11-11 18:47 | Diagnostic Imaging Report ---
JOEY ROSEN [facility] [address] [facility] [address] [address] Report Submission Date: Nov 11, 2018 11:04:38 AM CDT Patient Study Name: PATRICK MARTIN Date: Nov 11, 2018 10:28:49 AM CDT Modality Type: DX Gender: F Description: CHEST 2VIEW : 36 Institution: [facility] Physician: JOEY ROSEN Chest 2 views History: Cough and congestion Findings: Prior from September 20 2018. Heart size is stable. Streaky bibasilar atelectasis is similar to prior. No consolidation or pneumothorax or pleural effusion. Impression: Streaky bibasilar atelectasis similar to prior. Electronically signed on Nov 11, 2018 11:04:38 AM CDT by: Douglas HORAN
[2018-11-11] MEDS: ATORVASTATIN CALCIUM 20 MG TABLET PO SCH (21:22)
[2018-11-12] MEDS: PANTOPRAZOLE SODIUM 40 MG TABLET.DR PO SCH (06:24)
[2018-11-12] MEDS: IPRATROPIUM/ALBUTEROL SULFATE 3 ML AMPUL.NEB NEB SCH (06:24)
--- NOTE | 2018-11-12 06:54 | Discharge Summary ---
Discharge Summary - Discharge [facility] Admission Date: 11/08/18 Discharge Date: 11/12/18 Discharge To: Home History of Present Illness: 78yo white female with a history of chronic recurrent pneumonias and chronic bronchiectasis. Patient states that yesterday she started running a low-grade fever, she started having a more intense cough than her baseline although it is nonproductive at this time. Patient has been having some intermittent chest pain associated with her coughing. Patient has been having increasing shortness of breath and dyspnea. Patient has been on oxygen intermittently in the past but is not on any oxygen therapy at this time. Patient has been nausea at time but no vomiting has been appreciated. Bowel limits have been normal. Patient subsequently came into the ED today. Patient was noted have a leukocytosis of 20,000. Chest x-ray showed some early infiltrates in the lower lobe bilaterally. patient had to be given supplemental oxygen in order to maintain her SaO2 greater than 92%. Patient was subsequently admitted to the hospital for further care and evaluation. Condition at Discharge: Stable Home Medications: Ambulatory Orders Medication Instructions Recorded Magnesium, Aluminum Hydroxide 30 ml PO Q6 PRN udc 03/17/18 [Maalox] Clopidogrel Bisulfate [Clopidogrel] 75 mg PO DAILY 05/20/18 Aspirin 81 mg PO DAILY 09/20/18 Cetirizine HCl [Zyrtec] 10 mg PO DAILY 09/20/18 Furosemide [Lasix] 40 mg PO DAILY 09/20/18 Guaifenesin [Mucinex] 600 mg PO DAILY 09/20/18 Multivit-Min/Iron/Folic/Lutein 1 tab PO DAILY 09/20/18 [Centrum Silver Women Tablet] Amoxicillin/Potassium Clav 1 each PO BID #20 tablet 11/12/18 [Augmentin 875-125 Tablet] Azithromycin [Zithromax] 250 mg PO DAILY #4 tablet 11/12/18 Prednisone 20 mg PO BID #72 tab 11/12/18 Consultations this Visit: None Procedures this Visit: None Allergies/Adverse Reactions: Allergies Allergy/AdvReac Type Severity Reaction Status Date / Time clindamycin Allergy Mild Generalized Verified 11/08/18 09:47 Redness cefadroxil hydrate Allergy Unknown Verified 11/08/18 09:47 [From Donte] Cephalosporins Allergy Unknown Verified 11/08/18 09:47 Sulfa (Sulfonamide Allergy Unknown Verified 11/08/18 09:47 Antibiotics) [Sulfa(Sulfonamide Antibiotics)] Pork/Porcine Containing AdvReac Intermediate Abdominal Verified 11/08/18 09:47 Products Pain levofloxacin [From Levaquin] AdvReac Mild Nausea/Vomi Verified 11/08/18 09:47 ting Quinolones AdvReac Mild Nausea/Vomi Verified 11/08/18 09:47 ting Discharge Summary: Patient is an 78 year old female admitted acute for pneumonia. She was started on supplemental oxygen at 2 liters, IV solu-medrol, IV antibiotic, and duonebs. She had an elevated WBC of 20,000. Chest xray showed streaky bibasilar infiltrates. She has been weaned off supplemental oxygen and room air sats are 95%. Labs on the were WNL but increased slightly yesterday probably due to IV steroids. Patient vitals are WNL and she is afebrile. She is feeling much better and denies any SOA or chest pain. She still has a coarse cough but feels that it is breaking up. Patient feels ready to go home and will continue on PO antibiotics and a tapering dose of prednisone. - Final Diagnosis (1) Pneumonia Problems: Improving; 95% on RA; will continue PO antibiotics Right or Left: Right (2) Acute exacerbation of bronchiectasis Problems: Improved; will continue with tapering dose of PO steroids Right or Left: Right (3) Hyperglycemia Problems: STable Right or Left: Right (4) Congestive heart failure Problems: Stable Right or Left: Right (5) Left shoulder pain Problems: IMproved with heat Right or Left: Right (6) Essential hypertension Problems: STable Right or Left: Right
[2018-11-12] MEDS: AZITHROMYCIN 500 MG in 0.9 % SODIUM CHLORIDE 250 ML IV SCH (07:44)
[2018-11-12 08:20] VITALS: BP 126/60
[2018-11-12] MEDS: LISINOPRIL 10 MG TABLET PO SCH (09:06)
[2018-11-12] MEDS: ASPIRIN 81 MG CHEW TAB PO SCH (09:06)
[2018-11-12] MEDS: FUROSEMIDE 40 MG TABLET PO SCH (09:06)
[2018-11-12] MEDS: guaiFENesin 600 MG TAB.ER.12H PO SCH (09:06)
[2018-11-12] MEDS: CLOPIDOGREL BISULFATE 75 MG TABLET PO SCH (09:06)
[2018-11-12] MEDS: ENOXAPARIN SODIUM 40 MG/0.4 ML DISP.SYRIN SQ SCH (09:07)
[2018-11-12] MEDS: FLUTICASONE/SALMETEROL 250-50 INHALER IH SCH (09:07)
[2018-11-12] MEDS: methylPREDNISolone SOD SUCC 40 MG/ML VIAL IVP SCH (09:08)
[2018-11-12] MEDS ORDERED: methylPREDNISolone SOD SUCC 40 MG/ML VIAL IM ONE (09:20)
== END 2018-11-12 10:15 | disposition home or self-care (01) | DRG 191 ==
LOC: ED 08:26 → SOUTH 10:38
PROVIDERS: ADMIT Family Medicine; ATTEND Family Medicine
DX: J47.0 Bronchiectasis with acute lower respiratory infection (principal); I50.42 Chronic combined systolic (congestive) and diastolic (congestive) heart failure; J18.9 Pneumonia, unspecified organism; D72.829 Elevated white blood cell count, unspecified; M25.512 Pain in left shoulder; E66.9 Obesity, unspecified; R73.9 Hyperglycemia, unspecified; I11.0 Hypertensive heart disease with heart failure; I25.10 Atherosclerotic heart disease of native coronary artery without angina pectoris; K21.9 Gastro-esophageal reflux disease without esophagitis; D47.3 Essential (hemorrhagic) thrombocythemia; D64.9 Anemia, unspecified; J47.1 Bronchiectasis with (acute) exacerbation; T38.0X5A Adverse effect of glucocorticoids and synthetic analogues, initial encounter; I25.2 Old myocardial infarction; Z87.01 Personal history of pneumonia (recurrent); Z79.02 Long term (current) use of antithrombotics/antiplatelets; Z79.82 Long term (current) use of aspirin; Z79.52 Long term (current) use of systemic steroids; Z68.33 Body mass index [BMI] 33.0-33.9, adult; Z79.899 Other long term (current) drug therapy; Z90.49 Acquired absence of other specified parts of digestive tract; Z98.1 Arthrodesis status; Z99.81 Dependence on supplemental oxygen; Z86.73 Personal history of transient ischemic attack (TIA), and cerebral infarction without residual deficits; Z88.1 Allergy status to other antibiotic agents; Z88.2 Allergy status to sulfonamides; Z91.018 Allergy to other foods; Y92.239 Unspecified place in hospital as the place of occurrence of the external cause
CPT/HCPCS: 36415; 71045; 71046; 80053; 81002; 83880; 85025; 87040; 93005; 94640; 94760; J0456; J1030; J1650; J1940; J1956; J7050; 99222; 99232; 99238; J2920; S1016

== ENCOUNTER 2018-11-21 09:22 | Emergency (ER) | payer MEDICARE, OTHER ==
--- NOTE | 2018-11-21 09:30 | ED Physician Documentation ---
General Adult - HISTORIAN Historian: patient - HPI Stated Complaint: bruising to abdomen Chief Complaint: General Adult Additional Information: Patient presents to ED with bruising to abdomen. Patient reports being in hospital for pneumonia with discharge on 11/12/18. During her hospitalization she received subq heparin. She noticed some "knots" in the skin of her stomach. Today when she woke up she had considerable amount of bruising to her abdomen. It is not painful and she denies any other symptoms. She has one more day of antibiotics and prednisone left. Patient is also on Plavix daily. Onset: hours (2) Timing: still present - ROS CONST: recent illness. denies: fever EYES/ENT: none CVS/RESP: denies: chest pain, shortness of breath GI/: denies: vomiting, nausea MS/SKIN/LYMPH: none NEURO/PSYCH: denies: headache - PAST HX Past History: COPD Other History: none Surgeries/Procedures: none Allergies/Adverse Reactions: Allergies Allergy/AdvReac Type Severity Reaction Status Date / Time clindamycin Allergy Mild Generalized Verified 11/21/18 09:34 Redness cefadroxil hydrate Allergy Unknown Verified 11/21/18 09:34 [From Duricef] Cephalosporins Allergy Unknown Verified 11/21/18 09:34 Sulfa (Sulfonamide Allergy Unknown Verified 11/21/18 09:34 Antibiotics) [Sulfa(Sulfonamide Antibiotics)] Pork/Porcine Containing AdvReac Intermediate Abdominal Verified 11/21/18 09:34 Products Pain levofloxacin [From Levaquin] AdvReac Mild Nausea/Vomi Verified 11/21/18 09:34 ting Quinolones AdvReac Mild Nausea/Vomi Verified 11/21/18 09:34 ting Home Medications: Ambulatory Orders Medication Instructions Recorded Magnesium, Aluminum Hydroxide 30 ml PO Q6 PRN udc 03/17/18 [Maalox] Clopidogrel Bisulfate [Clopidogrel] 75 mg PO DAILY 05/20/18 Aspirin 81 mg PO DAILY 09/20/18 Cetirizine HCl [Zyrtec] 10 mg PO DAILY 09/20/18 Furosemide [Lasix] 40 mg PO DAILY 09/20/18 Guaifenesin [Mucinex] 600 mg PO DAILY 09/20/18 Multivit-Min/Iron/Folic/Lutein 1 tab PO DAILY 09/20/18 [Centrum Silver Women Tablet] Amoxicillin/Potassium Clav 1 each PO BID #20 tablet 11/12/18 [Augmentin 875-125 Tablet] Azithromycin [Zithromax] 250 mg PO DAILY #4 tablet 11/12/18 Prednisone 20 mg PO BID #72 tab 11/12/18 - SOCIAL HX Smoking History: non-smoker Alcohol Use: none Drug Use: none - FAMILY HX Family History: No - VITAL SIGNS Vital Signs: Vital Signs Temp Pulse Resp BP Pulse Ox 126/60 11/12/18 08:14 - REVIEWED ASSESSMENTS Nursing Assessment Reviewed: Yes Vitals Reviewed: Yes General Adult Physical Exam - PHYSICAL EXAM GENERAL APPEARANCE: no distress EENT: JUSTIN NECK: No: lymphadenopathy RESPIRATORY: no resp distress, chest non-tender, wheezes (scattered bilaterally) CVS: reg rate & rhythm, other (2/5 systolic murmur heard best on right sternal border) ABDOMEN: soft, normal bowel sounds, non-tender, other (15 cm irregular shapped area of hematoma centered to the right of umbilicus) BACK: normal inspection, no CVA tenderness SKIN: warm/dry, normal color EXTREMITIES: non-tender, normal range of motion, edema (trace lower extremity edema bilaterally) NEURO: oriented X3, mood/affect nml, cognition normal Discharge Clincal Impression: Hematoma of abdominal wall Qualifiers: Encounter type: initial encounter Qualified Code(s): S30.1XXA - Contusion of abdominal wall, initial encounter Referrals: Sincere Stanton MD [Primary Care Provider] - 2 Days Additional Instructions: 1. Tylenol as needed for pain 2. Warm moist compresses to affected area as needed for comfort 3. Follow up with PCP within 1 week 4. Return to ER for new or worsening symptoms Comments: Coag studies and platelet count WNL. Hematoma likely due to heparin injections exacerbated by daily Plavix. Condition: Stable Disposition: 01 HOME, SELF-CARE Decision to Admit: NO Date of Decison to Admit: 11/21/18 Decision Time: 10:13
[2018-11-21 09:56] LABS: BASOPHILS % 0.6 % (0.0-1.5); NEUTROPHILS # 11.5 # k/uL (1.4-7.7)
[2018-11-21 10:07] LABS: eGFR (Non-African) > 60
[2018-11-21 10:20] VITALS: BP 126/60
== END 2018-11-21 10:16 | disposition home or self-care (01) ==
LOC: ED 09:22
DX: S30.1XXA Contusion of abdominal wall, initial encounter (principal); X50.9XXA Other and unspecified overexertion or strenuous movements or postures, initial encounter
CPT/HCPCS: 80053; 85025; 85610; 99283; 99284

== ENCOUNTER 2019-01-21 09:12 | Outpatient (CLI) | payer MEDICARE, OTHER ==
--- NOTE | 2019-01-21 10:57 | Diagnostic Imaging Report ---
PATIENT MR#: [id number] PATIENT PATIENT NAME: PATRICK MARTIN DATE OF : 1940 REFERRING PHYSICIAN: Mary Garcia EXAM DATE: 01/21/2019 ACCESSION NUMBER: [id number] EXAM DESCRIPTION: CHEST 2VIEW HISTORY: SOA WITH PRODUCTIVE COUGH AND NAUSEA, NON-SMOKER, PT STATES HX OF MULTIPLE PNEUMONIAS. COMPARISON: November 11, 2018. CHEST RADIOGRAPH, FRONTAL AND LATERAL: Upper mediastinum: Atherosclerotic calcification of the aortic arch. Heart: No cardiomegaly. Lungs: There are chronic interstitial changes of the bilateral lower lobes, with the appearance of sc arring and atelectasis. There is blunting of the left costophrenic angle either due to small effusion or pleural scarring. The appearance is slightly improved compared to prior. Skeleton: No acute findings. IMPRESSION: Chronic interstitial scarring and atelectasis of both lung bases, slightly improved nancy red to the prior exams. Read by: Dr. Gregory Valencia Transcribed by: Gregory Valencia Transcribed Date: 01/21/2019 10:57:04 AM Electronically signed by: Dr. Gregory Valencia Date signed: 01/21/2019 10:57:04 AM
== END 2019-01-21 09:22 ==
LOC: RAD 09:12
PROVIDERS: ATTEND Nurse Practitioner Family
DX: R06.02 Shortness of breath (principal)
CPT/HCPCS: 71046

== ENCOUNTER 2019-02-18 08:48 | Outpatient (CLI) | payer MEDICARE, OTHER ==
--- NOTE | 2019-02-18 09:58 | Diagnostic Imaging Report ---
PATIENT MR#: [id number] PATIENT PATIENT NAME: PATRICK MARTIN DATE OF : 1940 REFERRING PHYSICIAN: Reinier Argueta EXAM DATE: 02/18/2019 ACCESSION NUMBER: [id number] EXAM DESCRIPTION: US DUPLEX CAROTID BILATERAL Exam: Bilateral carotid Doppler study. History: Preoperative evaluation. Doppler interrogation and color Doppler imaging of the carotid systems bilaterally are submitted. On the right side intimal thickening and plaque are identified. The internal carotid artery peak sys tolic velocity measurements is 114 centimeters/second. The internal carotid artery common carotid artery ratio is 1.0. Doppler waveforms are normal configuration. Flow is antegrade in vertebral artery. On the left side intimal thickening and plaque is identified. The internal carotid artery peak systo lic velocity measurements is 130 centimeters/second. The internal carotid artery common carotid artery ratio is 1 .1. Doppler waveforms are normal configuration. Color Doppler imaging reveals no turbinates of flow. Flow is an tegrade in the vertebral artery. Impression: No hemodynamically significant stenosis. Read by: Dr. Ovidio Schmitt Transcribed by: Transcribed Date: Electronically signed by: Dr. Ovidio Schmitt Date signed: 02/18/2019 9:57:14 AM
== END 2019-02-18 08:58 ==
LOC: RAD 08:48
PROVIDERS: ATTEND Internal Medicine Cardiovascular Disease
DX: Z01.818 Encounter for other preprocedural examination (principal)